=== PATIENT | male | born 1950 | race Caucasian/White ===

== ENCOUNTER → 2018-01-19 15:05 | Outpatient (CLI) | payer MEDICARE, BC, SELFPAY ==
[2018-01-19 15:46] LABS: Hemoglobin A1C% w Est Avg Glu 6.7 % (4.0-6.0)
[2018-01-19 16:11] LABS: Creatinine Urine Random 108.1 mg/dL
[2018-01-19 16:14] LABS: Microalbumi Creatinin Ratio Ur 169.2 ug/mg CR (<30); Microalbumin Urine Random 18.3 mg/dL (0-1.6)
== END ==
PROVIDERS: Family Provider Family Medicine; PCP Family Medicine; Visit Provider Family Medicine
DX: E11.9 Type 2 diabetes mellitus without complications (principal); I10 Essential (primary) hypertension
CPT/HCPCS: 36415; 82043; 82570; 83036

== ENCOUNTER → 2018-07-25 12:48 | Outpatient (CLI) | payer MEDICARE, BC, SELFPAY ==
[2018-07-25 13:33] LABS: Hemoglobin A1C% w Est Avg Glu 6.8 % (4.0-6.0)
[2018-07-25 14:26] LABS: Alanine Aminotransferase 22 IU/L (21-72); Albumin 4.6 g/dL (3.5-5.0); Albumin Globulin Ratio 1.3 (1.0-2.8); Alkaline Phosphatase 102 U/L (38-126); Aspartate Aminotransferase 23 IU/L (17-59); BUN Creatinine Ratio 24.6 (6-22); Bilirubin Total 0.4 mg/dL (0.2-1.3); Blood Urea Nitrogen 32 mg/dL (9-20); Calcium 9.9 mg/dL (8.4-10.2); Carbon Dioxide 30 mmol/L (22-32); Chloride 103 mmol/L (98-107); Cholesterol 143 mg/dL (140-199); Estimated Glomerular Filt Rate 55.1 mL/min (>60); Globulin 3.5 g/dL (1.7-4.1); Glucose 141 mg/dL (80-110); HDL Cholesterol 29 mg/dL (40-60); HEMOLYSIS < 15 (0-50); LDL Cholesterol Calculated 79 mg/dL (<100); Potassium 4.1 mmol/L (3.4-5.1); Sodium 145 mmol/L (137-145); Total Protein 8.1 g/dL (6.3-8.2); Triglycerides 176 mg/dL (35-150)
== END ==
PROVIDERS: Family Provider Family Medicine; PCP Family Medicine; Visit Provider Family Medicine
DX: E11.9 Type 2 diabetes mellitus without complications (principal); I10 Essential (primary) hypertension; Z87.39 Personal history of other diseases of the musculoskeletal system and connective tissue
CPT/HCPCS: 36415; 80053; 80061; 83036

== ENCOUNTER 2020-01-29 19:07 | Emergency (ER) | payer MEDICARE, OTHER, SELFPAY ==
[2020-01-29] VITALS (12 sets, daily range): BP systolic 134–162; BP diastolic 83–99; PULSE 86–114; RESP 15–27; TEMP 36.6; O2SAT 90–98; BMI 31.6
[2020-01-29 19:52] LABS: Bacteria Urine None Seen
[2020-01-29 19:53] LABS: Appearance Urine UA CLEAR; Bilirubin Urine UA NEGATIVE (NEGATIVE); Color Urine UA YELLOW; Glucose Urine UA NEGATIVE (Negative); Ketones Urine UA TRACE (NEGATIVE); Leukocyte Esterase Urine UA NEGATIVE (NEGATIVE); Nitrite Urine UA NEGATIVE (Negative); Occult Blood Urine UA 3+ (Negative); Protein Urine UA 2+ (Negative); Specific Gravity Urine UA >=1.030 (1.000-1.035); Urobilinogen Urine UA 0.2 E.U./dL (0.2)
--- NOTE | 2020-01-29 20:02 | ED_ITS ---
HPI - Abdominal Pain General Chief Complaint: Abdominal Pain Stated Complaint: SHARP PAIN LOWER ABD FEELS LIKE PASSING OUT Time Seen by Provider: 01/29/20 19:36 Source: patient Mode of arrival: Ambulatory Limitations: no limitations History of Present Illness HPI narrative: The patient developed abdominal discomfort earlier today. He has suprapubic discomfort. He has associated nausea & vomiting. He has no back pain. He has no hematuria. He has very little urine output. He has had several episodes of vomiting. He has no associated diarrhea. He has had no hematemesis. He does have a history of UGI bleed. He is having normal BMs, he complains of no melena. He has no testicular pain, he denies prostate disease. He has a remote history of kidney stones. He has no fever or chills with the symptoms. Related Data Home Medications Medication Instructions Recorded Confirmed cholecalciferol (vitamin D3) 2,000 u OR QDAY #0 09/07/17 03/09/18 [Vitamin D3] chondroitin sulfate A [Chondroitin #0 09/07/17 03/09/18 Sulfate] ferrous sulfate [Iron (ferrous #0 09/07/17 03/09/18 sulfate)] glucosamine sulfate [Cidatrine] 1,500 mg OR QDAY #0 09/07/17 03/09/18 omega 6-pbm-xci-fish oil [Fish Oil] #0 09/07/17 03/09/18 Previous Rx's Medication Instructions Recorded amlodipine 10 mg tablet 10 mg PO QDAY #90 tab 08/23/19 atorvastatin 10 mg tablet 10 mg PO DAILY #90 tab 08/23/19 metformin 1,000 mg tablet 1,000 mg PO BID #180 tab 08/23/19 valsartan 160 1 tab PO QDAY #90 tab 08/23/19 mg-hydrochlorothiazide 12.5 mg tablet Allergies Allergy/AdvReac Type Severity Reaction Status Date / Time NSAIDS (Non-Steroidal AdvReac Intermediate Verified 01/29/20 19:29 Anti-Inflamma Review of Systems Review of Systems ROS Unobtainable: All systems reviewed & are unremarkable except as noted in HPI and below Constitutional Constitutional: Denies chills, Denies fever(s), Denies lethargy and Denies weakness ENT Ears, Nose, Mouth, and Throat: Reports as per HPI (No complaints) and Denies dizziness Cardiovascular Cardiovascular: Denies chest pain, Denies irregular heart rhythm, Denies lightheadedness, Denies dyspnea and Denies orthopnea Respiratory Respiratory: Denies cough, Denies dyspnea and Denies wheezing Gastrointestinal Gastrointestinal: Reports abdominal pain (Suprapubic), Denies change in bowel habits, Denies diarrhea, Denies nausea and Denies vomiting Genitourinary Genitourinary: Denies testicular pain, Denies urinary frequency and Denies urinary urgency Genitourinary: Denies urinary frequency and Denies urinary urgency Musculoskeletal Musculoskeletal: Denies back pain Integumentary/Breasts Skin/Breast: Denies pruritus, Denies erythema, Denies rash and Denies wounds Neurologic Neurologic: Denies behavioral changes, Denies confusion, Denies dizziness and Denies weakness Psychiatric Psychiatric: Denies anxiety, Denies behavioral changes and Denies confusion Allergic/Immunologic Allergic/Immunologic: Denies wheezing Patient History Medical History (Updated 01/30/20 @ 03:04 by Elliot Rose MD) Anemia (Resolved 2010) Colon polyps (Resolved 2010) Diabetes mellitus (Chronic 1998) Diverticular disease (Chronic 2010) GERD (gastroesophageal reflux disease) (Chronic 2008) GI bleeding (Resolved 2010) Gout (Resolved 2008) Hypertension (Chronic 1994) Kidney stone on right side (Inactive) Surgical History Anesthesia (Resolved) Status post laparoscopy (Resolved 2004) Family History Father Hypertension Alzheimer's disease Cancer Grandfather Heart disease Grandmother No problems noted. Mother Cancer Grandfather Heart disease Grandmother Diabetes mellitus Social History marital status: unmarried,single Smoking Status: Former smoker alcohol intake: current substance use type: marijuana (monthly for insomnia) Smoking Status: Former smoker Exam Initial Vital Signs Initial Vital Signs: Vital Signs Blood Pressure 161/99 H 01/29/20 19:26 Const General: cooperative and well developed Nutritional Appearance: well nourished HENMT Mouth: oral mucosae normal Eyes General: appearance normal, both eyes and all related structures Conjunctivae: conjunctivae normal Sclera: sclerae normal Neck Neck: trachea midline, supple, No tender and No JVD Chest Chest: normal palpation of entire chest wall Resp Effort & Inspection: normal respiratory effort and able to speak in complete sentences Auscultation: clear to auscultation bilaterally, no rales, no rhonchi and no wheezes Cardio Rate: regular rate Rhythm: regular rhythm Heart Sounds: no click, no gallops, no murmurs and no rubs Pulses: normal peripheral pulses GI Inspection: non-distended Palpation: soft, no hepatosplenomegaly, No pulsatile mass and tender (Suprapubic tenderness without distention, guarding or rebound.) Auscultation: normal bowel sounds Rectal Exam: visual inspection normal, normal sphincter tone and heme negative stool Other: There is prostate hypertrophy, but no palpable masses, and no suggestion of infection. Back/Spine/Pelvis Back: No CVA tenderness Skin General: no rashes or lesions noted Neuro General: patient alert, patient oriented x3, gait normal and no focal motor deficits Speech: speech normal Extrem General: full ROM, no clubbing, cyanosis or edema, no pedal edema and no calf tenderness Psych Appearance: well kempt Mental Status: mental status grossly normal Attitude: cooperative Thought Content: normal and suicidality Judgment: judgment good Course Course Course Narrative: The patient was given IV fluids and a low dose of morphine, [address] revealed evidence of a small kidney stone at the verge of injury to the bladder from the right ureter. Repeat evaluation he is pain free, suggesting the kidney stone has moved into the bladder. Orders Ordered: ED Orders 01/29/20 19:33 EKG-12 Lead Stat 01/29/20 19:48 Urinalysis and Microscopic Stat 01/29/20 20:00 Complete Blood Count AUTO DIFF Stat Comprehensive Metabolic Panel Stat Lipase Stat Partial Thromboplastin Time Stat Prothrombin Time INR Stat 01/29/20 20:44 CT kidney ureter bladder (KUB) Stat Discontinued Medications Hydrocodone Bitart/Acetaminophen (Vicodin 5/325 Prepack) 1 bottle MISC SEEINSTR ONE Stop: 01/29/20 22:49 Last Admin: 01/29/20 23:06 Dose: 1 bottle Documented by: KEVON Morphine Sulfate (Morphine) 2 mg IV NOW ONE Stop: 01/29/20 20:03 Last Admin: 01/29/20 20:10 Dose: 2 mg Documented by: KEVON Ondansetron HCl (Zofran) 4 mg IV NOW ONE Stop: 01/29/20 20:04 Last Admin: 01/29/20 20:10 Dose: 4 mg Documented by: KEVON Ondansetron HCl (Zofran Odt Prepack) 1 bottle MISC SEEINSTR ONE Stop: 01/29/20 22:49 Last Admin: 01/29/20 23:06 Dose: 1 bottle Documented by: KEVON Vital Signs Vital signs: Vital Signs - 8 hr 01/29/20 19:26 01/29/20 19:27 01/29/20 19:29 Temperature 97.9 F Pulse Rate 113 H 114 H Respiratory Rate 16 Blood Pressure 161/99 H 161/99 H Pulse Oximetry 98 97 01/29/20 19:30 01/29/20 20:00 01/29/20 20:02 Temperature Pulse Rate 106 H 100 H 98 H Respiratory Rate 16 21 27 H Blood Pressure 162/99 H 161/89 H Pulse Oximetry 96 95 95 01/29/20 20:12 01/29/20 20:30 01/29/20 21:30 Temperature Pulse Rate 96 H 96 H 101 H Respiratory Rate 15 18 24 Blood Pressure 149/88 H 134/83 Pulse Oximetry 97 90 L 97 01/29/20 22:00 01/29/20 22:30 01/29/20 23:00 Temperature Pulse Rate 99 H 95 H 86 Respiratory Rate 21 15 18 Blood Pressure Pulse Oximetry 98 96 98 MDM - Abdominal Pain Lab Data Attestation: I reviewed the patient's lab results. Result diagrams: 01/29/20 20:00 01/29/20 20:00 Labs: Lab Results 01/29/20 01/29/20 01/29/20 Range/Units 19:48 20:00 20:00 WBC 11.7 H (4.5-11.0) X10^3/uL RBC 4.50 (4.5-5.9) X10^6/uL Hgb 13.3 L (13.5-17.5) g/dL Hct 40.1 L (41-53) % MCV 89.3 (80-100) fL MCH 29.5 (26-34) PG MCHC 33.0 (30-36) % RDW 14.7 (11.6-14.8) % Plt Count 345 (150-400) X10^3/uL Neut % (Auto) 79.7 H (50-75) % Lymph % (Auto) 12.6 L (25-40) % [place] % (Auto) 5.7 (3-14) % Eos % (Auto) 1.3 L (2-4) % Baso % (Auto) 0.7 (0-2) % Neut # (Auto) 9300 H (7229-3142) /uL Lymph # (Auto) 1500 (8820-1669) /uL [place] # (Auto) 700 (0-900) /uL Eos # (Auto) 200 (0-450) /uL Baso # (Auto) 100 (0-100) /uL PT 10.9 (10.1-12.7) SECONDS INR 1.0 (0.9-1.3) APTT 31 (26.4-36.2) SECONDS Sodium (137-145) mmol/L Potassium (3.4-5.1) mmol/L Chloride (98-107) mmol/L Carbon Dioxide (22-32) mmol/L BUN (9-20) mg/dL Creatinine (0.66-1.25) mg/dL Estimated GFR (>60) mL/min BUN/Creatinine Ratio (6-22) Glucose (80-110) mg/dL Calcium (8.4-10.2) mg/dL Total Bilirubin (0.2-1.3) mg/dL AST (17-59) IU/L ALT (<50) IU/L Alkaline Phosphatase (38-126) U/L Total Protein (6.3-8.2) g/dL Albumin (3.5-5.0) g/dL Globulin (1.7-4.1) g/dL Albumin/Globulin Ratio (1.0-2.8) Lipase (23-300) U/L Urine Color Yellow Urine Appearance Clear Urine pH 5.0 (4.5-8.0) Ur Specific [place] >=1.030 H (1.000-1.035) Urine Protein 2+ H (Negative) Urine Glucose (UA) Negative (Negative) g/dL Urine Ketones Trace H (NEGATIVE) Urine Occult Blood 3+ H (Negative) Urine Nitrate Negative (Negative) Urine Bilirubin Negative (NEGATIVE) Urine Urobilinogen 0.2 (0.2) E.U./dL Ur Leukocyte Esterase Negative (NEGATIVE) Urine RBC 5-10/hpf H (0-5/HPF) Urine WBC 0-1/hpf (0-5/HPF) Ur Squamous Epith Cells 0-1 /hpf (0-5/HPF) Amorphous Sediment 1+ Urine Bacteria None seen (None) Urine Mucus 1+ H (Negative) Ur Culture Indicated? Cult not indicated 01/29/20 Range/Units 20:00 WBC (4.5-11.0) X10^3/uL RBC (4.5-5.9) X10^6/uL Hgb (13.5-17.5) g/dL Hct (41-53) % MCV (80-100) fL MCH (26-34) PG MCHC (30-36) % RDW (11.6-14.8) % Plt Count (150-400) X10^3/uL Neut % (Auto) (50-75) % Lymph % (Auto) (25-40) % [place] % (Auto) (3-14) % Eos % (Auto) (2-4) % Baso % (Auto) (0-2) % Neut # (Auto) (4487-4992) /uL Lymph # (Auto) (3099-5059) /uL [place] # (Auto) (0-900) /uL Eos # (Auto) (0-450) /uL Baso # (Auto) (0-100) /uL PT (10.1-12.7) SECONDS INR (0.9-1.3) APTT (26.4-36.2) SECONDS Sodium 141 (137-145) mmol/L Potassium 4.0 (3.4-5.1) mmol/L Chloride 104 (98-107) mmol/L Carbon Dioxide 24 (22-32) mmol/L BUN 32 H (9-20) mg/dL Creatinine 1.41 H (0.66-1.25) mg/dL Estimated GFR 49.8 L (>60) mL/min BUN/Creatinine Ratio 22.7 H (6-22) Glucose 254 H (80-110) mg/dL Calcium 10.0 (8.4-10.2) mg/dL Total Bilirubin 0.3 (0.2-1.3) mg/dL AST 27 (17-59) IU/L ALT 27 (<50) IU/L Alkaline Phosphatase 133 H (38-126) U/L Total Protein 7.8 (6.3-8.2) g/dL Albumin 4.4 (3.5-5.0) g/dL Globulin 3.4 (1.7-4.1) g/dL Albumin/Globulin Ratio 1.3 (1.0-2.8) Lipase 66 (23-300) U/L Urine Color Urine Appearance Urine pH (4.5-8.0) Ur Specific [place] (1.000-1.035) Urine Protein (Negative) Urine Glucose (UA) (Negative) g/dL Urine Ketones (NEGATIVE) Urine Occult Blood (Negative) Urine Nitrate (Negative) Urine Bilirubin (NEGATIVE) Urine Urobilinogen (0.2) E.U./dL Ur Leukocyte Esterase (NEGATIVE) Urine RBC (0-5/HPF) Urine WBC (0-5/HPF) Ur Squamous Epith Cells (0-5/HPF) Amorphous Sediment Urine Bacteria (None) Urine Mucus (Negative) Ur Culture Indicated? Imaging Data CT scan - abdomen/pelvis: Radiologist's Impression: 47 Elliot Rose MD Find Patient Imaging - Elliot Burt 69 M 1950 ACTIVITY DATE EXAM STATUS AUTHOR 01/29/20 20:44 [place] [address] CT Scan Report Signed Patient: Elliot Burt [facility]#: [id number] : 1950cct:[id number] Age/Sex: 69 / MDate of Service: 01/29/20 Loc: ED Accession Number: [id number] Procedure: CT kidney ureter bladder (KUB) Ordering Provider: Elliot Rose MD PROCEDURE: CT KIDNEY URETER BLADDER (KUB) INDICATIONS: Suprapubic pain. Hematuria. TECHNIQUE: Noncontrast 5 mm thick sections acquired from the diaphragms to the symphysis. 5 mm thick coronal and sagittal reformats were then performed. For radiation dose r eduction, the following was used: automated exposure control, adjustment of mA and/or kV according to patient size. COMPARISON: None. FINDINGS: Image quality: Excellent. Lung bases: Lung bases are clear. Heart size is normal. Urinary system: Both kidneys are normal in size but there is a slight amount of edema along the course of the right kidney. No kidney stones. No hydronephrosis or perinephric fat stranding. Both ureters appear non-dilated throughout their expected courses. Bladder wall thickness is normal; there is a 1.5-2 mm calcified bladder stone exactly at the posterior midline. Other solid organs: Liver is normal in size. Gallbladder appears normal. Panc reas is normal in contours. Spleen is normal in size. No adrenal nodules. Peritoneum and bowel: Unenhanced bowel loops demonstrate normal wall thickness and caliber. No free fluid or air. Nodes and vessels: No retroperitoneal or mesenteric adenopathy by size criteria. Aorta and inferior vena cava are normal in caliber. Abdominal wall: No ventral hernias. Pelvis: No free pelvic fluid. No inguinal hernias or adenopathy. Extensive sigmoid diverticulosis without acute diverticulitis. Bones: No suspicious bony lesions. No vertebral body compression fractures. IMPRESSION: There is a single identified 1.5-2 mm calculus within the bladder lumen, in the setting of prior right-sided flank pain and slight edema along the borders of the right kidney. The appearance is most consistent with recent passage of this calculus into the bladder lumen from the right ureter. The stone of this size generally will pass without symptomatology through the urethra. Dictated by: José Lewis M.D. on 01/29/2020 at 21:11 Approved by: José Lewis M.D. on 01/29/2020 at 21:13 ECG Data Attestation: I personally reviewed and interpreted this ECG as follows: (Normal sinus rhythm rate 98 beats per minute. Intermittent axis. Pattern consistent with pulmonary disease. No acute ST T wave changes.) Discharge Plan Departure Patient Disposition: Home Clinical Impression: Kidney stone on right side Discharge Date/Time: 01/29/20 23:15 Instructions: DI for Kidney Stones Activity Restrictions/Additional Instructions: Drink plenty of water, be sure you are well hydrated. [place] every 4-6 hours as needed for pain. Zofran every 4-6 hours as needed for nausea. Return the ER if he develops increasing pain, fever, or worsening of symptoms. Prescriptions: No Action ferrous sulfate [Iron (ferrous sulfate)] 325 MG tablet Qty: 0 RF: 0 cholecalciferol (vitamin D3) [Vitamin D3] 2,000 UNIT capsule 2,000 u OR QDAY Qty: 0 RF: 0 chondroitin sulfate A [Chondroitin Sulfate] 250 MG capsule Qty: 0 RF: 0 omega 0-sby-lxz-fish oil [Fish Oil] 1,000 MG capsule Qty: 0 RF: 0 glucosamine sulfate [Cidatrine] 500 MG tablet 1,500 mg OR QDAY Qty: 0 RF: 0 valsartan-hydrochlorothiazide 160-12.5 mg tablet 1 tab PO QDAY Qty: 90 RF: 2 atorvastatin 10 mg tablet 10 mg PO DAILY Qty: 90 RF: 2 metformin 1,000 mg tablet 1,000 mg PO BID Qty: 180 RF: 2 amlodipine 10 mg tablet 10 mg PO QDAY Qty: 90 RF: 2 Referrals: Fatuma Olivarez DO [Primary Care Provider] -
[2020-01-29] MEDS: MORPHINE 4 MG/ML INJ 2 MG IV (20:10)
[2020-01-29] MEDS: ONDANSETRON 4 MG/2 ML INJ IV (20:10)
[2020-01-29 20:11] LABS: RBC Urine 5-10/HPF (0-5/HPF); Squamous Epithelial Cell Urine 0-1 /HPF (0-5/HPF); WBC Urine 0-1/HPF (0-5/HPF)
[2020-01-29 20:12] LABS: Amorphous Sediment Urine 1+; Culture Indicated Urine Cult Not Indicated; Mucus Urine 1+ (Negative)
[2020-01-29 20:22] LABS: Prothrombin Time 10.9 SECONDS (10.1-12.7)
[2020-01-29 20:23] LABS: Alanine Aminotransferase 27 IU/L (<50); Albumin 4.4 g/dL (3.5-5.0); Albumin Globulin Ratio 1.3 (1.0-2.8); Alkaline Phosphatase 133 U/L (38-126); Aspartate Aminotransferase 27 IU/L (17-59); BUN Creatinine Ratio 22.7 (6-22); Bilirubin Total 0.3 mg/dL (0.2-1.3); Blood Urea Nitrogen 32 mg/dL (9-20); Carbon Dioxide 24 mmol/L (22-32); Chloride 104 mmol/L (98-107); Estimated Glomerular Filt Rate 49.8 mL/min (>60); Globulin 3.4 g/dL (1.7-4.1); Glucose 254 mg/dL (80-110); HEMOLYSIS < 15 (0-50); Lipase 66 U/L (23-300); Sodium 141 mmol/L (137-145); Total Protein 7.8 g/dL (6.3-8.2)
[2020-01-29 20:25] LABS: PTT Partial Thromboplastin Tim 31 SECONDS (26.4-36.2)
[2020-01-29 20:29] LABS: Add Manual Diff / Slide Review NO; Basophils Absolute Auto 100 /uL (0-100); Basophils Percent Auto 0.7 % (0-2); Eosinophils Absolute Auto 200 /uL (0-450); Eosinophils Percent Auto 1.3 % (2-4); Hematocrit 40.1 % (41-53); Hemoglobin 13.3 g/dL (13.5-17.5); Lymphocytes Absolute Auto 1500 /uL (1100-4500); Lymphocytes Percent Auto 12.6 % (25-40); Mean Corpuscular Hemoglobin 29.5 PG (26-34); Mean Corpuscular Volume 89.3 fL (80-100); Monocytes Absolute Auto 700 /uL (0-900); Monocytes Percent Auto 5.7 % (3-14); Neutrophils Absolute Auto 9300 /uL (1500-7000); Neutrophils Percent Auto 79.7 % (50-75); Platelet Count 345 X10^3/uL (150-400); Red Cell Distribution Width 14.7 % (11.6-14.8); White Blood Cell Count 11.7 X10^3/uL (4.5-11.0)
--- NOTE | 2020-01-29 20:44 | DI.CT.S_ITS ---
PROCEDURE: CT KIDNEY URETER BLADDER (KUB) INDICATIONS: Suprapubic pain. Hematuria. TECHNIQUE: Noncontrast 5 mm thick sections acquired from the diaphragms to the symphysis. 5 mm thick coronal and sagittal reformats were then performed. For radiation dose reduction, the following was used: automated exposure control, adjustment of mA and/or kV according to patient size. COMPARISON: None. FINDINGS: Image quality: Excellent. Lung bases: Lung bases are clear. Heart size is normal. Urinary system: Both kidneys are normal in size but there is a slight amount of edema along the course of the right kidney. No kidney stones. No hydronephrosis or perinephric fat stranding. Both ureters appear non-dilated throughout their expected courses. Bladder wall thickness is normal; there is a 1.5-2 mm calcified bladder stone exactly at the posterior midline. Other solid organs: Liver is normal in size. Gallbladder appears normal. Pancreas is normal in contours. Spleen is normal in size. No adrenal nodules. Peritoneum and bowel: Unenhanced bowel loops demonstrate normal wall thickness and caliber. No free fluid or air. Nodes and vessels: No retroperitoneal or mesenteric adenopathy by size criteria. Aorta and inferior vena cava are normal in caliber. Abdominal wall: No ventral hernias. Pelvis: No free pelvic fluid. No inguinal hernias or adenopathy. Extensive sigmoid diverticulosis without acute diverticulitis. Bones: No suspicious bony lesions. No vertebral body compression fractures. IMPRESSION: There is a single identified 1.5-2 mm calculus within the bladder lumen, in the setting of prior right-sided flank pain and slight edema along the borders of the right kidney. The appearance is most consistent with recent passage of this calculus into the bladder lumen from the right ureter. The stone of this size generally will pass without symptomatology through the urethra. Dictated by: José Lewis M.D. on 01/29/2020 at 21:11 Approved by: José Lewis M.D. on 01/29/2020 at 21:13
[2020-01-29] MEDS: HYDROCODONE/ACET 5/325 PREPACK 1 BOTTLE MISC (23:06)
[2020-01-29] MEDS: ONDANSETRON 4 MG ODT PREPACK 1 BOTTLE MISC (23:06)
== END 2020-01-29 23:15 | disposition home or self-care (01) ==
PROVIDERS: Emergency Provider Emergency Medicine; Family Provider Family Medicine; PCP Family Medicine
DX: N20.0 Calculus of kidney (principal); R31.9 Hematuria, unspecified; R11.2 Nausea with vomiting, unspecified
CPT/HCPCS: 36415; 74176; 80053; 81001; 83690; 85025; 85610; 85730; 93005; 93010; 96374; 96375; 99284; J2270; J2405

== ENCOUNTER → 2020-05-22 11:30 | Outpatient (CLI) | payer MEDICARE, OTHER, SELFPAY ==
[2020-05-22 12:38] LABS: Hemoglobin A1C% w Est Avg Glu > 14.0 % (4.0-6.0)
[2020-05-22 13:09] LABS: Cholesterol 182 mg/dL (140-199); HDL Cholesterol 18 mg/dL (40-60); Triglycerides 502 mg/dL (35-150)
[2020-05-22 16:16] LABS: Creatinine Urine Random 77.6 mg/dL
[2020-05-22 16:20] LABS: Microalbumi Creatinin Ratio Ur 168.8 ug/mg CR (<30); Microalbumin Urine Random 13.1 mg/dL (0-1.6)
== END ==
PROVIDERS: Family Provider Family Medicine; PCP Family Medicine; Referring Provider Family Medicine; Visit Provider Family Medicine
DX: E11.69 Type 2 diabetes mellitus with other specified complication (principal); E11.9 Type 2 diabetes mellitus without complications; E66.9 Obesity, unspecified; E78.5 Hyperlipidemia, unspecified; I10 Essential (primary) hypertension
CPT/HCPCS: 36415; 80061; 82043; 82570; 83036

== ENCOUNTER → 2020-05-23 08:44 | Outpatient (CLI) | payer MEDICARE, OTHER, SELFPAY ==
[2020-05-23 09:09] LABS: Add Manual Diff / Slide Review NO; Basophils Absolute Auto 100 /uL (0-100); Basophils Percent Auto 0.7 % (0-2); Eosinophils Absolute Auto 200 /uL (0-450); Hematocrit 44.2 % (41-53); Hemoglobin 14.3 g/dL (13.5-17.5); Lymphocytes Absolute Auto 2300 /uL (1100-4500); Lymphocytes Percent Auto 28.8 % (25-40); Mean Corpuscular HGB Conc 32.3 % (30-36); Mean Corpuscular Hemoglobin 29.6 PG (26-34); Mean Corpuscular Volume 91.5 fL (80-100); Monocytes Absolute Auto 500 /uL (0-900); Monocytes Percent Auto 6.4 % (3-14); Neutrophils Absolute Auto 5000 /uL (1500-7000); Neutrophils Percent Auto 62.1 % (50-75); Platelet Count 299 X10^3/uL (150-400); Red Blood Cell Count 4.83 X10^6/uL (4.5-5.9); Red Cell Distribution Width 14.3 % (11.6-14.8)
[2020-05-23 09:23] LABS: Alanine Aminotransferase 15 IU/L (<50); Albumin 4.1 g/dL (3.5-5.0); Albumin Globulin Ratio 1.4 (1.0-2.8); Alkaline Phosphatase 148 U/L (38-126); Aspartate Aminotransferase 20 IU/L (17-59); BUN Creatinine Ratio 21.3 (6-22); Bilirubin Total 0.6 mg/dL (0.2-1.3); Blood Urea Nitrogen 30 mg/dL (9-20); Calcium 9.7 mg/dL (8.4-10.2); Carbon Dioxide 25 mmol/L (22-32); Chloride 98 mmol/L (98-107); Estimated Glomerular Filt Rate 49.8 mL/min (>60); Glucose 370 mg/dL (80-110); HEMOLYSIS < 15 (0-50); Sodium 136 mmol/L (137-145); Total Protein 7.1 g/dL (6.3-8.2)
== END ==
PROVIDERS: Family Provider Family Medicine; PCP Family Medicine; Visit Provider Family Medicine
DX: E11.9 Type 2 diabetes mellitus without complications (principal)
CPT/HCPCS: 80053; 85025

== ENCOUNTER → 2020-06-01 08:24 | Outpatient (CLI) | payer MEDICARE, OTHER, SELFPAY ==
[2020-06-03 20:06] LABS: COVID19 Sendout Not Detected (Not Detect)
== END ==
PROVIDERS: Family Provider Family Medicine; PCP Family Medicine; Visit Provider Physician Assistant
DX: Z11.59 Encounter for screening for other viral diseases (principal)
CPT/HCPCS: 87635

== ENCOUNTER 2020-06-04 07:59 | Day surgery (SDC) | payer MEDICARE, OTHER, SELFPAY ==
[2020-06-04] MEDS: PROPARACAINE 0.5% OPHTH SOL 2 DROPS EYE-OP (08:43)
[2020-06-04] MEDS: CATARACT EYE COMPOUND (10 DROPS/SYRINGE) 3 DROPS EYE-OP (08:48)
[2020-06-04 08:49] VITALS: BMI 31.0
[2020-06-04 08:55] VITALS: BP 135/91; PULSE 113; RESP 20; TEMP 36.2; O2SAT 97
--- NOTE | 2020-06-04 09:41 | PM.PREOP ---
Pre-operative Note Interval Note History & Physical reviewed/Exam performed by Physician: Yes Changes to H&P: No
--- NOTE | 2020-06-04 09:41 | P.OP_ITS ---
Operative Date/Time/Diagnoses Pre-op diagnosis: Nuclear cataract right eye Procedure & Clinicians Procedure: Cataract Surgery Same procedure as scheduled: Yes Surgeon: Ezra Watson Anesthesia Type: MAC +/- and Sedation Operative Notes Procedure in detail: Patient brought to the operating suite. Tetracaine drops placed in the right eye. Marking instrument was used to anastasiia vertical and horizontal meridians. Patient was prepped and draped in sterile manner. Wire lid speculum was placed in the eye. Marking instrument was used to anastasiia 45 degree meridian. Betadine drops were placed on the eye. This was irrigated. Lidocaine jelly was placed on the eye. A paracentesis port was created with a side-port blade. 0.1 mL 1% preservative free lidocaine was injected into the anterior chamber. The anterior chamber was deepened with viscoelastic. 2.6 mm keratome was used to create a temporal clear corneal incision. Cystotome and Utrata forceps were used to create continuous tear capsulorrhexis. Balanced salt solution was used to hydro dissect the nucleus. The phacoemulsification handpiece was inserted and the nucleus was removed using the stop and chop technique. The irrigation aspiration handpiece was inserted and the remaining cortex was removed. Anterior chamber was deepened with viscoelastic. An Yeager [id number] intraocular lens with a power of 14.0 was injected into the capsular bag. Irrigation aspiration handpiece was inserted and the remaining viscoelastic was removed. The lens was rotated to the 45 degree meridian. Incision was hydrated with balanced salt solution and found to be leak free with pressure with Weck- Mercedes sponges. 0.1 mL Vigamox injected anterior chamber. 0.3 mL Kenalog 10 mg was injected subconjunctivally. Lid speculum was removed. The patient left the operating room in excellent condition. Complications: none Post-operative Condition: stable Disposition: same day surgery
[2020-06-04] MEDS: MOXIFLOXACIN INJ 5 MG/ML VIAL EYE-OP (09:58)
[2020-06-04] MEDS: CHONDROIDTIN/SOD HYALURONATE 1.05 ML SYRINGE INTRAOCULA (09:58)
[2020-06-04] MEDS: LIDOCAINE JELLY 2% 5 ML 1 APPLIC TOP (09:58)
[2020-06-04] MEDS: PHENYLEPHRINE/LIDOCAINE VIAL (OR) 0.2 ML EYE-OP (09:58)
[2020-06-04] MEDS: TETRACAINE 0.5% OPHTH DROPS 4 ML 2 DROPS EYE-OP (09:59)
[2020-06-04] MEDS: TRIAMCINOLONE 50 MG/5 ML VIAL INJ (09:59)
[2020-06-04] MEDS: BALANCED SALT IRRIG SOLN NO.2 500 ML, EPINEPHrine 1 MG IRR (10:02)
[2020-06-04 10:20] VITALS: BP 109/77; PULSE 98; RESP 16; TEMP 36.6; O2SAT 94
== END 2020-06-04 10:33 | disposition home or self-care (01) ==
PROVIDERS: Family Provider Family Medicine; PCP Family Medicine; Referring Provider Family Medicine; Visit Provider Ophthalmology
PROC: (CPT 66984; principal; 2020-06-04 09:45)
DX: H25.11 Age-related nuclear cataract, right eye (principal); E11.9 Type 2 diabetes mellitus without complications; I10 Essential (primary) hypertension; Z79.84 Long term (current) use of oral hypoglycemic drugs
CPT/HCPCS: 66984; J0171; J2250; J3010; J3301; V2787

== ENCOUNTER → 2020-06-15 14:29 | Outpatient (CLI) | payer MEDICARE, OTHER, SELFPAY ==
[2020-06-15 15:44] LABS: COVID19 -Nasal RAPID Negative (Negative)
== END ==
PROVIDERS: Family Provider Family Medicine; PCP Family Medicine; Visit Provider Physician Assistant
DX: Z11.59 Encounter for screening for other viral diseases (principal)
CPT/HCPCS: 87635

== ENCOUNTER 2020-06-18 06:55 | Day surgery (SDC) | payer MEDICARE, OTHER, SELFPAY ==
[2020-06-18] MEDS: PROPARACAINE 0.5% OPHTH SOL 2 DROPS EYE-OP (07:12)
[2020-06-18] MEDS: CATARACT EYE COMPOUND (10 DROPS/SYRINGE) 3 DROPS EYE-OP (07:13)
[2020-06-18 07:14] VITALS: BP 118/83; PULSE 97; RESP 16; TEMP 37.2; O2SAT 97; BMI 30.9
--- NOTE | 2020-06-18 08:05 | P.OP_ITS ---
Operative Date/Time/Diagnoses Pre-op diagnosis: Nuclear Cataract Left eye Post-op diagnosis: same Procedure & Clinicians Same procedure as scheduled: Yes Surgeon: Ezra Watson Anesthesia Type: MAC +/- and Sedation Operative Notes Procedure in detail: Patient brought to the operating suite. Tetracaine drops placed in the left eye. Marking instrument was used to anastasiia the vertical and horizontal meridians. Patient was prepped and draped in sterile manner. Wire lid speculum was placed in the eye. Marking instrument used to anastasiia the 160 degree meridians. Betadine drops were placed on the eye. This was irrigated. Lidocaine jelly was placed on the eye. A paracentesis port was created with a side-port blade. 0.1 mL 1% preservative free lidocaine was injected into the anterior chamber. The anterior chamber was deepened with viscoelastic. 2.6 mm keratome was used to create a temporal clear corneal incision. Cystotome and Utrata forceps were used to create continuous tear capsulorrhexis. Balanced salt solution was used to hydro dissect the nucleus. The phacoemulsification handpiece was inserted and the nucleus was removed using the stop and chop techn ique. The irrigation aspiration handpiece was inserted and the remaining cortex was removed. Anterior chamber was deepened with viscoelastic. An Yeager [id number] intraocular lens with a power of 13.5 was injected into the capsular bag. Irrigation aspiration handpiece was inserted and the remaining viscoelastic was removed. The lens was rotated to the 160 degree meridian. Incision was hydrated with balanced salt solution and found to be leak free with pressure with Weck-Mercedes sponges. 0.1 mL Vigamox injected anterior chamber. 0.3 mL Kenalog 10 mg was injected subconjunctivally. Lid speculum was removed. The patient left the operating room in excellent condition. Complications: none Post-operative Condition: stable Disposition: same day surgery
--- NOTE | 2020-06-18 08:05 | PM.PREOP ---
Pre-operative Note Interval Note History & Physical reviewed/Exam performed by Physician: Yes Changes to H&P: No
[2020-06-18] MEDS: MOXIFLOXACIN INJ 5 MG/ML VIAL EYE-OP (08:20)
[2020-06-18] MEDS: CHONDROIDTIN/SOD HYALURONATE 1.05 ML SYRINGE INTRAOCULA (08:20)
[2020-06-18] MEDS: TRIAMCINOLONE 50 MG/5 ML VIAL INJ (08:20)
[2020-06-18] MEDS: PHENYLEPHRINE/LIDOCAINE VIAL (OR) 0.2 ML EYE-OP (08:20)
[2020-06-18] MEDS: TETRACAINE 0.5% OPHTH DROPS 4 ML 2 DROPS EYE-OP (08:21)
[2020-06-18] MEDS: BALANCED SALT IRRIG SOLN NO.2 500 ML, EPINEPHrine 1 MG IRR (08:21)
[2020-06-18] MEDS: LIDOCAINE JELLY 2% 5 ML 1 APPLIC TOP (08:21)
[2020-06-18 08:34] VITALS: BP 118/88; PULSE 97; RESP 16; TEMP 36.4; O2SAT 96
== END 2020-06-18 08:55 | disposition home or self-care (01) ==
PROVIDERS: Family Provider Family Medicine; PCP Family Medicine; Referring Provider Ophthalmology; Visit Provider Ophthalmology
PROC: (CPT 66984; principal; 2020-06-18 08:15)
DX: H25.12 Age-related nuclear cataract, left eye (principal); E11.9 Type 2 diabetes mellitus without complications; I10 Essential (primary) hypertension; Z79.84 Long term (current) use of oral hypoglycemic drugs
CPT/HCPCS: 66984; J0171; J2250; J3010; J3301; V2787

== ENCOUNTER → 2020-06-24 12:39 | Outpatient (CLI) | payer MEDICARE, OTHER, SELFPAY ==
--- NOTE | 2020-06-24 12:44 | DI.RAD.S_ITS ---
PROCEDURE: XR CHEST 2V INDICATIONS: shortness of breath TECHNIQUE: 2 views of the chest were acquired. COMPARISON: [facility], , ABDOMEN 2 VIEW, 09/20/2017, 11:58. FINDINGS: Surgical changes and devices: None. Lungs and pleura: Elevation of the right hemidiaphragm. Right basilar airspace opacity. Lungs otherwise are clear.. No pleural effusions or pneumothorax. Mediastinum: Mediastinal contours are normal. Heart size is normal. Bones and chest wall: No suspicious bony abnormalities. Soft tissues appear unremarkable. IMPRESSION: 1. Elevation the right hemidiaphragm and right basilar airspace opacity consistent with atelectasis versus pneumonia or underlying neoplasm. Continued radiographic surveillance to resolution is recommended. Dictated by: Solomon Almonte [facility] Interpreted: George Lantigua MD on 06/24/2020 at 13:51 Approved by: George Lantigua M.D. on 06/24/2020 at 17:31
[2020-06-24 13:33] LABS: Hemoglobin A1C% w Est Avg Glu 12.6 % (4.0-6.0)
== END ==
PROVIDERS: Family Provider Family Medicine; PCP Family Medicine; Referring Provider Family Medicine; Visit Provider Family Medicine
DX: R06.02 Shortness of breath (principal); E11.69 Type 2 diabetes mellitus with other specified complication; E78.5 Hyperlipidemia, unspecified; I10 Essential (primary) hypertension
CPT/HCPCS: 36415; 71046; 83036

== ENCOUNTER → 2020-07-01 12:50 | Outpatient (CLI) | payer MEDICARE, OTHER, SELFPAY ==
--- NOTE | 2020-07-01 12:52 | DI.CT.S_ITS ---
PROCEDURE: CT CHEST WO CON INDICATIONS: SOB, fatigue, abnormal chest x-ray TECHNIQUE: Noncontrast 5 mm thick sections acquired from the pulmonary apices to the posterior costophrenic angles. 1 mm lung window, 5 mm thick coronal and sagittal and 7 mm axial MIP reformats were then acquired. For radiation dose reduction, the following was used: automated exposure control, adjustment of mA and/or kV according to patient size. COMPARISON: Outside Facility, , CT ABDOMEN/PELVIS WITHOUT CONTRAST, 07/16/2014, 15:03. [facility], CT, ABDOMEN/PELVIS WITH CONTRAST, 10/06/2017, 13:47. Outside Facility, , CT ABDOMEN/PELVIS W/WO CONTRAST, 12/11/2014, 15:03. FINDINGS: Image quality: Excellent. Lungs and pleura: No acute air space opacities. No pleural effusions or pneumothorax. Eventration of right hemidiaphragm with volume loss in the right hemithorax. Chronic benign-appearing pleural based nodular density extreme posterior medial left lung base, most recently measuring 1.9 x 1.8 cm and currently measuring 2.0 x 2.0 cm. It is adjacent to multiple pleural based calcifications. Bibasilar bronchial wall thickening. Mediastinum: Heart size is normal. No pericardial effusion. Coronary artery calcifications. Incidental note made of bovine arch anatomy. No mediastinal adenopathy by size criteria. Thoracic aorta and central pulmonary arteries are normal in size. Esophagus is normal in caliber. No hiatal hernia. Bones and chest wall: No suspicious bony lesions. No vertebral body compression fractures. No axillary or supraclavicular adenopathy by size criteria. Thyroid gland is unremarkable as imaged. Abdomen: Visualized upper abdominal solid organs and bowel loops appear normal in the absence of contrast. Remote gastric bypass procedure. IMPRESSION: 1. Eventration of right hemidiaphragm. There is resulting volume loss in the right lung base. 2. Benign-appearing, very slowly growing nodular pleural density, left lower medial hemithorax. 3. Bibasilar bronchial wall thickening. Dictated by: Velasquez Rain M.D. on 07/01/2020 at 13:47 Approved by: Velasquez Rain M.D. on 07/01/2020 at 14:07
== END ==
PROVIDERS: Family Provider Family Medicine; PCP Family Medicine; Referring Provider Family Medicine; Visit Provider Family Medicine
DX: R93.89 Abnormal findings on diagnostic imaging of other specified body structures (principal); R06.02 Shortness of breath; R53.83 Other fatigue
CPT/HCPCS: 71250

== ENCOUNTER → 2020-10-14 17:18 | Outpatient (CLI) | payer MEDICARE, OTHER, SELFPAY ==
--- NOTE | 2020-10-14 17:20 | DI.MRI.S_ITS ---
PROCEDURE: MR SHOULDER LT WO CON INDICATIONS: Pain in left shoulder TECHNIQUE: Noncontrast oblique coronal T2 fast spin echo with fat saturation, oblique sagittal T1 spin echo and T2 fast spin echo with fat saturation, axial T1 spin echo and T2 fast spin echo with fat saturation through the shoulder. COMPARISON: [facility] [place], CR, XR SHOULDER 2+ VIEWS LEFT, 10/07/2020, 9:13. FINDINGS: Image quality: Excellent. Rotator cuff: Mild T2 signal elevation throughout the supraspinatus and infraspinatus tendons at the humeral insertion sites, indicating tendinopathy. There is a small focus of fluid signal intensity within the upper subscapularis tendon at the humeral insertion site extending to the musculotendinous junction, indicating low-grade intrasubstance tearing. There is low-grade bursal surface tearing of the anterior, mid, and posterior supraspinatus tendon at the musculotendinous junction extending to the muscle belly. There is moderate grade transversely oriented intrasubstance tearing of the anterior supraspinatus tendon at the humeral insertion site. There is low-grade partial-thickness articular surface tearing of the anterior, mid, and posterior infraspinatus tendon at the humeral insertion site. There is moderate T2 signal elevation within the infraspinatus muscle extending to the musculotendinous junction of the infraspinatus, indicating moderate grade tearing. Teres minor tendon is intact. No full-thickness rotator cuff tear. Supraspinatus atrophy is present. Bones and bursae: No bone marrow contusions or fractures. No acromioclavicular joint degeneration. Widening of the acromioclavicular interval to 12 mm is present. The acromion demonstrates conventional anatomy, without an os acromiale. No pathologic subacromial-subdeltoid or subcoracoid bursal fluid is present. Capsule and soft tissues: There is diffuse degenerative glenoid labral tearing. The long head of the biceps tendon demonstrates normal location and morphology. The rotator interval appears normal, without fibrosis. The coracohumeral ligament is normal in thickness. IMPRESSION: 1. Acromioclavicular separation. 2. Supraspinatus and infraspinatus tendinopathy. New line 3. Superimposed partial-thickness tears of the supraspinatus and infraspinatus tendons and musculotendinous junctions, as well as the supraspinatus and infraspinatus muscles. There is associated supraspinatus atrophy. 3. Acromioclavicular joint osteoarthritis. 4. Diffuse glenoid labral tearing. 5. Low-grade partial-thickness subscapularis tendon tearing. Dictated by: Darci Medel M.D. on 10/15/2020 at 9:23 Approved by: Darci Medel M.D. on 10/15/2020 at 9:27
== END ==
PROVIDERS: Family Provider Family Medicine; PCP Internal Medicine; Referring Provider Orthopaedic Surgery; Visit Provider Orthopaedic Surgery
DX: M25.512 Pain in left shoulder (principal); S43.102A Unspecified dislocation of left acromioclavicular joint, initial encounter; M19.012 Primary osteoarthritis, left shoulder; M75.112 Incomplete rotator cuff tear or rupture of left shoulder, not specified as traumatic; S43.492A Other sprain of left shoulder joint, initial encounter
CPT/HCPCS: 73221

== ENCOUNTER → 2020-10-15 17:34 | Outpatient (CLI) | payer MEDICARE, OTHER, SELFPAY ==
[2020-10-15 18:20] LABS: Hemoglobin A1C% w Est Avg Glu 7.8 % (4.0-6.0)
[2020-10-15 18:21] LABS: Alanine Aminotransferase 15 IU/L (<50); Albumin 4.4 g/dL (3.5-5.0); Albumin Globulin Ratio 1.3 (1.0-2.8); Alkaline Phosphatase 113 U/L (38-126); Aspartate Aminotransferase 19 IU/L (17-59); BUN Creatinine Ratio 21.6 (6-22); Bilirubin Total 0.4 mg/dL (0.2-1.3); Blood Urea Nitrogen 25 mg/dL (9-20); Calcium 9.6 mg/dL (8.4-10.2); Carbon Dioxide 32 mmol/L (22-32); Chloride 104 mmol/L (98-107); Cholesterol 119 mg/dL (140-199); Estimated Glomerular Filt Rate > 60.0 mL/min (>60); Globulin 3.3 g/dL (1.7-4.1); Glucose 128 mg/dL (80-110); HDL Cholesterol 25 mg/dL (40-60); HEMOLYSIS < 15 (0-50); LDL Cholesterol Calculated 51 mg/dL (<100); Potassium 3.8 mmol/L (3.4-5.1); Sodium 144 mmol/L (137-145); Total Protein 7.7 g/dL (6.3-8.2); Triglycerides 213 mg/dL (35-150)
== END ==
PROVIDERS: Family Provider Family Medicine; PCP Internal Medicine; Referring Provider Internal Medicine; Visit Provider Internal Medicine
DX: E11.65 Type 2 diabetes mellitus with hyperglycemia (principal); I10 Essential (primary) hypertension
CPT/HCPCS: 36415; 80053; 80061; 83036

== ENCOUNTER 2020-10-18 12:50 | Emergency (ER) | payer MEDICARE, OTHER, SELFPAY ==
[2020-10-18 12:55] VITALS: BP 202/128; PULSE 128; RESP 24; TEMP 36.2; O2SAT 93; BMI 31.8
--- NOTE | 2020-10-18 12:59 | DI.RAD.S_ITS ---
PROCEDURE: XR CHEST 1V INDICATIONS: suspected sepsis TECHNIQUE: One view of the chest was acquired. COMPARISON: [facility], CR, XR CHEST 2V, 06/24/2020, 14:14. [facility], CT, CT CHEST WO CON, 07/01/2020, 13:19. FINDINGS: Surgical changes and devices: None. Lungs and pleura: Low lung volumes are noted. This causes a crowded appearance to the lung markings and limits evaluation. Mild, streaky opacities are seen at the lung bases. No pneumothorax or large pleural effusion can be seen. Mediastinum: The cardiac contours are within normal limits. The aorta demonstrates calcification and tortuosity. Bones and chest wall: Age-appropriate bony degenerative changes are seen. No suspicious bony lesions. Overlying soft tissues appear unremarkable. IMPRESSION: Presumed atelectasis is seen at the lung bases. Differential diagnosis includes minimal/early infiltrate, yet this is considered to be less likely. If clinically appropriate, a short-term followup chest series (with PA and lateral views) performed in deep inspiration versus is a dedicated chest CT would be suggested for further evaluation. Dictated by: Steve Dixon M.D. on 10/18/2020 at 12:38 Approved by: Steve Dixon M.D. on 10/18/2020 at 12:39
[2020-10-18 13:44] LABS: Add Manual Diff / Slide Review NO; Basophils Absolute Auto 100 /uL (0-100); Basophils Percent Auto 0.4 % (0-2); Eosinophils Absolute Auto 0 /uL (0-450); Hematocrit 41.9 % (41-53); Hemoglobin 13.7 g/dL (13.5-17.5); Lymphocytes Absolute Auto 1100 /uL (1100-4500); Mean Corpuscular HGB Conc 32.8 % (30-36); Mean Corpuscular Hemoglobin 28.8 PG (26-34); Mean Corpuscular Volume 87.9 fL (80-100); Monocytes Absolute Auto 1000 /uL (0-900); Monocytes Percent Auto 6.2 % (3-14); Neutrophils Absolute Auto 13500 /uL (1500-7000); Neutrophils Percent Auto 86.4 % (50-75); Platelet Count 305 X10^3/uL (150-400); Red Blood Cell Count 4.77 X10^6/uL (4.5-5.9); Red Cell Distribution Width 15.3 % (11.6-14.8); White Blood Cell Count 15.6 X10^3/uL (4.5-11.0)
[2020-10-18 13:54] LABS: INR 1.1 (0.9-1.3); Prothrombin Time 12.2 SECONDS (10.1-12.7)
[2020-10-18 13:57] LABS: PTT Partial Thromboplastin Tim 36 SECONDS (26.4-36.2)
[2020-10-18 13:59] LABS: Lactate (Lactic Acid) 1.7 mmol/L (0.7-2.1)
[2020-10-18 14:00] LABS: Alanine Aminotransferase 16 IU/L (<50); Albumin 4.6 g/dL (3.5-5.0); Albumin Globulin Ratio 1.4 (1.0-2.8); Alkaline Phosphatase 132 U/L (38-126); Aspartate Aminotransferase 20 IU/L (17-59); BUN Creatinine Ratio 21.1 (6-22); Bilirubin Total 0.5 mg/dL (0.2-1.3); Blood Urea Nitrogen 28 mg/dL (9-20); Calcium 9.9 mg/dL (8.4-10.2); Carbon Dioxide 29 mmol/L (22-32); Chloride 99 mmol/L (98-107); Estimated Glomerular Filt Rate 53.2 mL/min (>60); Globulin 3.4 g/dL (1.7-4.1); Glucose 269 mg/dL (80-110); HEMOLYSIS < 15 (0-50); Lipase 30 U/L (23-300); Potassium 4.1 mmol/L (3.4-5.1); Sodium 139 mmol/L (137-145)
[2020-10-18] MEDS: ONDANSETRON 4 MG/2 ML INJ IV ×2 (14:04→16:19)
[2020-10-18] MEDS: SODIUM CHLORIDE 0.9% 1,000 ML 1000 ML IV (14:04)
[2020-10-18 14:10] VITALS: BP 176/119; PULSE 120; RESP 14; O2SAT 95
[2020-10-18 14:15] LABS: Procalcitonin 0.08 ng/mL (<0.5)
[2020-10-18 15:08] LABS: Bacteria Urine None Seen
[2020-10-18 15:09] LABS: Appearance Urine UA CLEAR; Bilirubin Urine UA NEGATIVE (NEGATIVE); Color Urine UA YELLOW; Glucose Urine UA 1+ g/dL (Negative); Ketones Urine UA TRACE (NEGATIVE); Leukocyte Esterase Urine UA NEGATIVE (NEGATIVE); Nitrite Urine UA NEGATIVE (Negative); Occult Blood Urine UA 1+ (Negative); Protein Urine UA 2+ (Negative); Specific Gravity Urine UA 1.025 (1.000-1.035); Urobilinogen Urine UA 0.2 E.U./dL (0.2)
[2020-10-18 15:20] LABS: Amorphous Sediment Urine 1+; Culture Indicated Urine Cult Not Indicated; RBC Urine 1-5/HPF (0-5/HPF); Squamous Epithelial Cell Urine 0-1 /HPF (0-5/HPF); WBC Urine 0-1/HPF (0-5/HPF)
--- NOTE | 2020-10-18 15:25 | ED_ITS ---
HPI - Abdominal Pain General Chief Complaint: Abdominal Pain Stated Complaint: thinks intestinal blockage Time Seen by Provider: 10/18/20 15:24 Source: patient Mode of arrival: Ambulatory Limitations: no limitations History of Present Illness HPI narrative: This is a 70-year-old male comes emergency department with complaint of abdominal pain which he describes as suprapubic. Patient states that it started overnight. He had nausea and vomiting overnight, he has not had any additional today but has not tried to ingest any food or drink. He has not had a bowel movement for 24 hours. He states he has not been passing flatus recently. His last bowel movement was a mix of soft and hard. Patient has felt feverish and chilled at but denies any objective fevers. He states he did not check with a thermometer. He does state he has had some urinary frequency he has chronic stress incontinence and cannot delay his visit to the bathroom regularly. He like he is only urinating but a half cup when he does urinate and is he has had increasing fluids he has had more discomfort in his lower abdomen. He has a history of type 2 diabetes and hypertension. His prior surgical history and screws a gastric sleeve 12 years prior. He states NSAIDs give him GI bleeds. No tobacco, alcoholic drinks 2-3 times weekly. No illicit. PCP is Dr. Owen. Related Data Home Medications Medication Instructions Recorded Confirmed Chondroitin Sulfate 1 mg PO DAILY #0 09/07/17 09/24/20 cholecalciferol (vitamin D3) 2,000 u PO QDAY #0 09/07/17 09/24/20 [Vitamin D3] ferrous sulfate [Iron (ferrous 1 mg PO DAILY #0 09/07/17 09/24/20 sulfate)] glucosamine sulfate [Cidatrine] 1,500 mg PO QDAY #0 09/07/17 09/24/20 omega 4-pao-god-fish oil [Fish Oil] 1 cap PO BID #0 09/07/17 09/24/20 Previous Rx's Medication Instructions Recorded atorvastatin 40 mg tablet 40 mg PO DAILY #90 tab 05/23/20 blood-glucose meter #1 each 05/23/20 lancets #50 each 05/23/20 amlodipine 10 mg tablet 10 mg PO QDAY #90 tab 07/04/20 metformin 1,000 mg tablet 1,000 mg PO BID #180 tab 08/19/20 valsartan 160 1 tab PO DAILY #90 tab 08/19/20 mg-hydrochlorothiazide 12.5 mg tablet blood sugar diagnostic #50 each 08/26/20 oxycodone 5 mg PO Q6H PRN #14 tab 10/18/20 tamsulosin [Flomax] 0.4 mg PO DAILY #7 cap 10/18/20 Allergies Allergy/AdvReac Type Severity Reaction Status Date / Time NSAIDS (Non-Steroidal AdvReac Intermediate GI bleed Verified 10/18/20 12:58 Anti-Inflamma Review of Systems Review of Systems ROS Unobtainable: All systems reviewed & are unremarkable except as noted in HPI and below Patient History Medical History Anemia (2010) Colon polyps (2010) Diabetes mellitus (1998) Diabetic neuropathy Diverticular disease (2010) Essential hypertension (08/17/17) GERD (gastroesophageal reflux disease) (2008) GI bleeding (2010) Gout (2008) Hypertension (1994) Kidney stone on right side Obesity (BMI 30.0-34.9) Uncontrolled type 2 diabetes mellitus Surgical History Anesthesia Status post laparoscopy (2004) Family History Father Hypertension Alzheimer's disease Cancer Grandfather Heart disease Grandmother No problems noted. Mother Cancer Grandfather Heart disease Grandmother Diabetes mellitus Social History marital status: unmarried,single household members: none Smoking Status: Former smoker alcohol intake: current substance use type: marijuana (monthly for insomnia) Smoking Status: Former smoker alcohol intake frequency: a few times a month Substance Use Type: marijuana Exam Narrative Exam Narrative: GENERAL: Alert and oriented x three, well-nourished male in mild distress. HEENT: Head normocephalic, atraumatic, EOMI, pupils reactive, face symmetric, moist mucous membranes NECK: Supple, full range of motion CARDIOVASCULAR: Regular rate and rhythm without murmurs, rubs or gallops. RESPIRATORY: Breath sounds equal bilaterally, no wheezes rales or rhonchi. ABDOMEN: Soft, nontender the palpation. Normoactive bowel sounds all 4 quadrants. No guarding or rebound, rigidity, no mass. No bruit or pulsatile mass. : No CVA tenderness EXTREMITIES: Normal range of motion, no clubbing or edema. Neurovascularly intact NEUROLOGICAL: Cranial nerves II through XII grossly intact. Moving all extremities SKIN: Warm, dry, no petechiae, no rashes or lesions. Initial Vital Signs Initial Vital Signs: Vital Signs Temperature 97.1 F L 10/18/20 12:55 Pulse Rate 128 H 10/18/20 12:55 Respiratory Rate 24 10/18/20 12:55 Blood Pressure 202/128 H 10/18/20 12:55 Pulse Oximetry 93 10/18/20 12:55 Course Orders Ordered: ED Orders 10/18/20 12:59 XR chest 1V Stat EKG-12 Lead Stat RT Consult Eval and Treat Now 10/18/20 13:34 Complete Blood Count AUTO DIFF Stat Comprehensive Metabolic Panel Stat Lactate (Lactic Acid) Stat Lipase Stat Partial Thromboplastin Time Stat Procalcitonin Stat Prothrombin Time INR Stat 10/18/20 13:57 Blood Culture Stat 10/18/20 15:00 Urinalysis and Microscopic Stat Urine Culture Stat 10/18/20 16:03 CT abdomen pelvis w con Stat Discontinued Medications Sodium Chloride (Normal Saline 0.9%) 1,000 mls @ 1,000 mls/hr IV BOLUS ONE Stop: 10/18/20 14:50 Last Infusion: 10/18/20 15:38 Dose: 0 mls/hr Documented by: Admin: 10/18/20 14:04 Dose: 1,000 mls/hr Documented by: RAHUL Morphine Sulfate (Morphine 2 Mg/Ml Inj) 2 mg IV NOW ONE Stop: 10/18/20 16:02 Last Admin: 10/18/20 16:04 Dose: 2 mg Documented by: RAHUL Morphine Sulfate (Morphine 2 Mg/Ml Inj) 2 mg IV NOW ONE Stop: 10/18/20 16:26 Last Admin: 10/18/20 16:29 Dose: 2 mg Documented by: MARY Ondansetron HCl (Ondansetron 4 Mg/2 Ml Inj) 4 mg IV NOW ONE Stop: 10/18/20 13:00 Last Admin: 10/18/20 14:04 Dose: 4 mg Documented by: RAHUL Ondansetron HCl (Ondansetron 4 Mg/2 Ml Inj) 4 mg IV NOW ONE Stop: 10/18/20 16:06 Last Admin: 10/18/20 16:19 Dose: 4 mg Documented by: RAHUL Tamsulosin HCl (Tamsulosin 0.4 Mg Capsule) 0.4 mg PO NOW ONE Stop: 10/18/20 16:54 Last Admin: 10/18/20 17:31 Dose: 0.4 mg Documented by: RAHUL Reevaluation(s) Reevaluation #1: Patient feels much more comfortable at this time. We reviewed patient's labs. His tachycardia has improved. He still hypertensive here. He was vomiting so likely has not been able to keep down any of his blood pressure medications before being in the emergency department. He does have a mild leukocytosis but no obvious signs of infection in his urine. Renal function slightly decreased and we reviewed this. Patient states he has follow-up on Wednesday with Dr. Owen and we discussed strict return precautions over the weekend. He feels comfortable returning home and states he has passed kidney stones with out major issue in the past. Time: 17:18 Vital Signs Vital signs: Vital Signs - 8 hr 10/18/20 12:55 10/18/20 14:10 10/18/20 15:41 Temperature 97.1 F L Pulse Rate 128 H 120 H 90 Respiratory Rate 24 14 12 Blood Pressure 202/128 H 176/119 H 195/117 H Pulse Oximetry 93 95 99 10/18/20 17:30 Temperature Pulse Rate 90 Respiratory Rate 20 Blood Pressure 159/125 H Pulse Oximetry 96 MDM - Abdominal Pain Lab Data Attestation: I reviewed the patient's lab results. Result diagrams: 10/18/20 13:34 10/18/20 13:34 Labs: Lab Results 10/18/20 10/18/20 10/18/20 Range/Units 13:34 13:34 13:34 WBC 15.6 H (4.5-11.0) X10^3/uL RBC 4.77 (4.5-5.9) X10^6/uL Hgb 13.7 (13.5-17.5) g/dL Hct 41.9 (41-53) % MCV 87.9 (80-100) fL MCH 28.8 (26-34) PG MCHC 32.8 (30-36) % RDW 15.3 H (11.6-14.8) % Plt Count 305 (150-400) X10^3/uL Neut % (Auto) 86.4 H (50-75) % Lymph % (Auto) 7.0 L (25-40) % [place] % (Auto) 6.2 (3-14) % Eos % (Auto) 0.0 L (2-4) % Baso % (Auto) 0.4 (0-2) % Neut # (Auto) 77167 H (3697-5611) /uL Lymph # (Auto) 1100 (8694-7693) /uL Garrard # (Auto) 1000 H (0-900) /uL Eos # (Auto) 0 (0-450) /uL Baso # (Auto) 100 (0-100) /uL PT 12.2 (10.1-12.7) SECONDS INR 1.1 (0.9-1.3) APTT 36 D (26.4-36.2) SECONDS Sodium 139 (137-145) mmol/L Potassium 4.1 (3.4-5.1) mmol/L Chloride 99 (98-107) mmol/L Carbon Dioxide 29 (22-32) mmol/L BUN 28 H (9-20) mg/dL Creatinine 1.33 H (0.66-1.25) mg/dL Estimated GFR 53.2 L (>60) mL/min BUN/Creatinine Ratio 21.1 (6-22) Glucose 269 H D (80-110) mg/dL Lactate (0.7-2.1) mmol/L Calcium 9.9 (8.4-10.2) mg/dL Total Bilirubin 0.5 (0.2-1.3) mg/dL AST 20 (17-59) IU/L ALT 16 (<50) IU/L Alkaline Phosphatase 132 H (38-126) U/L Total Protein 8.0 (6.3-8.2) g/dL Albumin 4.6 (3.5-5.0) g/dL Globulin 3.4 (1.7-4.1) g/dL Albumin/Globulin Ratio 1.4 (1.0-2.8) Lipase 30 (23-300) U/L Procalcitonin 0.08 (<0.5) ng/mL Urine Color Urine Appearance Urine pH (4.5-8.0) Ur Specific [place] (1.000-1.035) Urine Protein (Negative) Urine Glucose (UA) (Negative) g/dL Urine Ketones (NEGATIVE) Urine Occult Blood (Negative) Urine Nitrate (Negative) Urine Bilirubin (NEGATIVE) Urine Urobilinogen (0.2) E.U./dL Ur Leukocyte Esterase (NEGATIVE) Urine RBC (0-5/HPF) Urine WBC (0-5/HPF) Ur Squamous Epith Cells (0-5/HPF) Amorphous Sediment Urine Bacteria (None) Ur Culture Indicated? 10/18/20 10/18/20 Range/Units 13:34 15:00 WBC (4.5-11.0) X10^3/uL RBC (4.5-5.9) X10^6/uL Hgb (13.5-17.5) g/dL Hct (41-53) % MCV (80-100) fL MCH (26-34) PG MCHC (30-36) % RDW (11.6-14.8) % Plt Count (150-400) X10^3/uL Neut % (Auto) (50-75) % Lymph % (Auto) (25-40) % [place] % (Auto) (3-14) % Eos % (Auto) (2-4) % Baso % (Auto) (0-2) % Neut # (Auto) (5964-5252) /uL Lymph # (Auto) (9046-5037) /uL [place]ard # (Auto) (0-900) /uL Eos # (Auto) (0-450) /uL Baso # (Auto) (0-100) /uL PT (10.1-12.7) SECONDS INR (0.9-1.3) APTT (26.4-36.2) SECONDS Sodium (137-145) mmol/L Potassium (3.4-5.1) mmol/L Chloride (98-107) mmol/L Carbon Dioxide (22-32) mmol/L BUN (9-20) mg/dL Creatinine (0.66-1.25) mg/dL Estimated GFR (>60) mL/min BUN/Creatinine Ratio (6-22) Glucose (80-110) mg/dL Lactate 1.7 (0.7-2.1) mmol/L Calcium (8.4-10.2) mg/dL Total Bilirubin (0.2-1.3) mg/dL AST (17-59) IU/L ALT (<50) IU/L Alkaline Phosphatase (38-126) U/L Total Protein (6.3-8.2) g/dL Albumin (3.5-5.0) g/dL Globulin (1.7-4.1) g/dL Albumin/Globulin Ratio (1.0-2.8) Lipase (23-300) U/L Procalcitonin (<0.5) ng/mL Urine Color Yellow Urine Appearance Clear Urine pH 6.0 (4.5-8.0) Ur Specific [place] 1.025 (1.000-1.035) Urine Protein 2+ H (Negative) Urine Glucose (UA) 1+ H (Negative) g/dL Urine Ketones Trace H (NEGATIVE) Urine Occult Blood 1+ H (Negative) Urine Nitrate Negative (Negative) Urine Bilirubin Negative (NEGATIVE) Urine Urobilinogen 0.2 (0.2) E.U./dL Ur Leukocyte Esterase Negative (NEGATIVE) Urine RBC 1-5/hpf (0-5/HPF) Urine WBC 0-1/hpf (0-5/HPF) Ur Squamous Epith Cells 0-1 /hpf (0-5/HPF) Amorphous Sediment 1+ Urine Bacteria None seen (None) Ur Culture Indicated? Cult not indicated Imaging Data CT scan - abdomen/pelvis: Radiologist's Impression: [address] [id number] Scan ReportSigned Patient: Elliot Burt [facility]#: [id number]: 1950cct:[id number]/Sex: 70 / MDate of Service: 10/18/20Loc: EDAccession Number: [id number] Procedure: CT abdomen pelvis w con Ordering Provider: India Holloway D.O. PROCEDURE: CT ABDOMEN PELVIS W CON INDICATIONS: ? obstruction, v and no BM x 24 hours TECHNIQUE: After the administration of intravenous contrast, 5 mm thick sections acquired from the diaphragm to the symphysis. 5 mm coronal and sagittal reformats were acquired. For radiation dose reduction, the following was used: automated exposure control, adjustment of mA and/or kV according to patient size. COMPARISON: [facility], CT, CT KIDNEY URETER BLADDER (KUB), 01/29/2020, 20:53. Outside Facility, RG, CT ABDOMEN/PELVIS W/WO CONTRAST, 12/11/2014, 15:03. Outside Facility, RG, CT ABDOMEN/PELVIS WITHOUT CONTRAST, 07/16/2014, 15:03. [facility], CT, ABDOMEN/PELVIS WITH CONTRAST, 10/06/2017, 13:47. FINDINGS: Image quality: Excellent. ABDOMEN: Lung bases: Lung bases are clear. Heart size is normal. Solid organs: Liver is normal in size and enhancement. Gallbladder is within normal limits. Biliary system is non dilated. Pancreas enhances normally. Spleen is normal in size and enhancement. No adrenal nodules. 3 millimeter stone noted at the right UVJ causing mild right-sided hydronephrosis. 4 millimeter and 2 millimeter nonobstructing stones of the lower pay of the right kidney. Mild right perinephric stranding and enhancement of the right genitourinary collecting system urothelium which could be due to obstruction versus urinary tract infection. 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 Bowel loops demonstrate normal wall thickness and caliber. Diverticula are scattered throughout the colon with numerous diverticuli in the left and sigmoid colon. No diverticulitis. No significant fecal volume identified in the colon. No free fluid or air. Nodes and vessels: No retroperitoneal or mesenteric adenopathy by size criteria. Aorta and inferior vena cava are normal in size. Scattered atherosclerotic calcifications involving the abdominal and pelvic vasculature. Two point several centimeter left common iliac artery ectasia and 1.6 centimeter right common iliac artery ectasia. Miscellaneous: No ventral hernias. PELVIS: Genitourinary: Diffuse urinary bladder wall thickening which could be due to underdistention or cystitis. Miscellaneous: No inguinal adenopathy. Small bilateral fat containing inguinal hernias. Bones: Chronic left 8th, 9th, 10th and 11th rib fractures. No suspicious bony lesions. No vertebral body compression fractures. Spine degenerative disc disease and facet arthropathy. IMPRESSION: 1. 3 millimeter stone at the right UVJ causing mild right-sided hydroureteronephrosis. 2. Right-sided perinephric stranding and right genitourinary urothelial enhancement which could be related to obstruction versus urinary tract infection. Recommend cor relation with urinalysis data. 3. 2 millimeter and 4 millimeter nonobstructing right renal stones. 4. 2.0 centimeter left common iliac and 1.6 centimeter right common iliac artery ectasia. 5. Colonic diverticulosis without evidence of diverticulitis. 6. No significant colonic fecal loading. Dictated by: Luh Doherty MD, PhD on 10/18/2020 at 16:26 Approved by: Luh Doherty MD, PhD on 10/18/2020 at 16:38 ECG Data Attestation: I personally reviewed and interpreted this ECG as follows: Interpretation: Sinus tachycardia rate of 1 ID interval 194 QRS 88 QTC of 439. No acute ST elevation or depression appreciated. Left anterior fascicular block is present. MDM Narrative Medical decision making narrative: This is a 70-year-old male comes to the emergency department with complaint of acute abdominal pain, nausea and vomiting and no bowel movement or flatus for 24 hours. Patient has a prior surgical history of gastric sleeve he also has discomfort as his bladder feels that on exam he is not tender with palpation. Patient was hypertensive on arrival and continues to be so he was tachycardic but that has improved with fluids. Patient's CT shows a right renal stone that is 3 mm with some perinephric stranding possibly mild hydro. Patient's renal function does have a slight bump. No signs of infection. Urine culture was ordered as patient does have a leukocytosis. He has been afebrile in the department. His tachycardia has improved and he is feeling much better and feels safe to return home at this time. Discharge Plan Departure Patient Disposition: Home Clinical Impression: Kidney stone on right side Instructions: Kidney Stones -- Adult Activity Restrictions/Additional Instructions: Follow up with urology or your physician in the next 2-3 days for recheck. Your renal function is slightly decreased so you do need to have your creatinine rechecked by Wednesday or Wednesday at the latest. You have a kidney stone on the right side. Take flomax until completely gone. Take Tylenol up to a 1000 mg every 8 hours as needed for pain. You may take oxycodone 1-2 tablets every 6 hours as needed for pain. This medication can make you sleepy do not drive, perform hazardous activities, make any major decisions while taking this medication. It also will make you consti pated so make sure you take a stool softener such as Colace 1 or 2 times daily until stools are soft and regular. Return for fevers greater 100.4 F, persistent vomiting, new or worsening abdominal, back or flank pain, inability to urinate, black or bloody stools or other new or concerning symptoms. Prescriptions: New tamsulosin [Flomax] 0.4 mg capsule 0.4 mg PO DAILY Qty: 7 RF: 0 oxycodone 5 mg tablet 5 mg PO Q6H PRN (Reason: pain) Qty: 14 RF: 0 No Action atorvastatin 40 mg tablet 40 mg PO DAILY Qty: 90 RF: 3 (DME) blood-glucose meter Misc See Rx Instructions .ROUTE .MEDSUPPLY Qty: 1 RF: 0 (DME) lancets Misc See Rx Instructions .ROUTE .MEDSUPPLY Qty: 50 RF: 0 ferrous sulfate [Iron (ferrous sulfate)] 325 MG tablet 1 mg PO DAILY Qty: 0 RF: 0 cholecalciferol (vitamin D3) [Vitamin D3] 2,000 UNIT capsule 2,000 u PO QDAY Qty: 0 RF: 0 Chondroitin Sulfate 250 MG capsule 1 mg PO DAILY Qty: 0 RF: 0 omega 5-ykd-fuy-fish oil [Fish Oil] 1,000 MG capsule 1 cap PO BID Qty: 0 RF: 0 glucosamine sulfate [Cidatrine] 500 MG tablet 1,500 mg PO QDAY Qty: 0 RF: 0 amlodipine 10 mg tablet 10 mg PO QDAY Qty: 90 RF: 3 metformin 1,000 mg tablet 1,000 mg PO BID Qty: 180 RF: 3 valsartan-hydrochlorothiazide 160-12.5 mg tablet 1 tab PO DAILY Qty: 90 RF: 3 (DME) Blood Glucose Test Strip See Rx Instructions .ROUTE .MEDSUPPLY Qty: 50 RF: 3 Referrals: Yury Owen MD [Primary Care Provider] -
[2020-10-18 15:41] VITALS: BP 195/117; PULSE 90; RESP 12; O2SAT 99
--- NOTE | 2020-10-18 16:03 | DI.CT.S_ITS ---
PROCEDURE: CT ABDOMEN PELVIS W CON INDICATIONS: ? obstruction, v and no BM x 24 hours TECHNIQUE: After the administration of intravenous contrast, 5 mm thick sections acquired from the diaphragm to the symphysis. 5 mm coronal and sagittal reformats were acquired. For radiation dose reduction, the following was used: automated exposure control, adjustment of mA and/or kV according to patient size. COMPARISON: [facility], CT, CT KIDNEY URETER BLADDER (KUB), 01/29/2020, 20:53. Outside Facility, RG, CT ABDOMEN/PELVIS W/WO CONTRAST, 12/11/2014, 15:03. Outside Facility, RG, CT ABDOMEN/PELVIS WITHOUT CONTRAST, 07/16/2014, 15:03. [facility], CT, ABDOMEN/PELVIS WITH CONTRAST, 10/06/2017, 13:47. FINDINGS: Image quality: Excellent. ABDOMEN: Lung bases: Lung bases are clear. Heart size is normal. Solid organs: Liver is normal in size and enhancement. Gallbladder is within normal limits. Biliary system is non dilated. Pancreas enhances normally. Spleen is normal in size and enhancement. No adrenal nodules. 3 millimeter stone noted at the right UVJ causing mild right-sided hydronephrosis. 4 millimeter and 2 millimeter nonobstructing stones of the lower pay of the right kidney. Mild right perinephric stranding and enhancement of the right genitourinary collecting system urothelium which could be due to obstruction versus urinary tract infection. 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 Bowel loops demonstrate normal wall thickness and caliber. Diverticula are scattered throughout the colon with numerous diverticuli in the left and sigmoid colon. No diverticulitis. No significant fecal volume identified in the colon. No free fluid or air. Nodes and vessels: No retroperitoneal or mesenteric adenopathy by size criteria. Aorta and inferior vena cava are normal in size. Scattered atherosclerotic calcifications involving the abdominal and pelvic vasculature. Two point several centimeter left common iliac artery ectasia and 1.6 centimeter right common iliac artery ectasia. Miscellaneous: No ventral hernias. PELVIS: Genitourinary: Diffuse urinary bladder wall thickening which could be due to underdistention or cystitis. Miscellaneous: No inguinal adenopathy. Small bilateral fat containing inguinal hernias. Bones: Chronic left 8th, 9th, 10th and 11th rib fractures. No suspicious bony lesions. No vertebral body compression fractures. Spine degenerative disc disease and facet arthropathy. IMPRESSION: 1. 3 millimeter stone at the right UVJ causing mild right-sided hydroureteronephrosis. 2. Right-sided perinephric stranding and right genitourinary urothelial enhancement which could be related to obstruction versus urinary tract infection. Recommend correlation with urinalysis data. 3. 2 millimeter and 4 millimeter nonobstructing right renal stones. 4. 2.0 centimeter left common iliac and 1.6 centimeter right common iliac artery ectasia. 5. Colonic diverticulosis without evidence of diverticulitis. 6. No significant colonic fecal loading. Dictated by: Luh Doherty MD, PhD on 10/18/2020 at 16:26 Approved by: Luh Doherty MD, PhD on 10/18/2020 at 16:38
[2020-10-18] MEDS: MORPHINE 2 MG/ML INJ IV ×2 (16:04→16:29)
--- NOTE | 2020-10-18 16:26 | PC.NURSE ---
patient up to restroom, reports increase pain, passed two drops of bright red blood.
[2020-10-18 17:30] VITALS: BP 159/125; PULSE 90; RESP 20; O2SAT 96
[2020-10-18] MEDS: TAMSULOSIN 0.4 MG CAPSULE PO (17:31)
== END 2020-10-18 17:36 | disposition home or self-care (01) ==
PROVIDERS: Emergency Provider Emergency Medicine; Family Provider Family Medicine; PCP Internal Medicine
DX: N20.0 Calculus of kidney (principal); R00.0 Tachycardia, unspecified; I44.4 Left anterior fascicular block
CPT/HCPCS: 36415; 51798; 71045; 74177; 80053; 81001; 83605; 83690; 84145; 85025; 85610; 85730; 87040; 87077; 87086; 87186; 93005; 93010; 96361; 96374; 96375; 96376; 99285; J2270; J2405; Q9967

== ENCOUNTER → 2020-10-22 11:11 | Outpatient (CLI) | payer MEDICARE, OTHER, SELFPAY ==
[2020-10-22 12:57] LABS: BUN Creatinine Ratio 24.1 (6-22); Blood Urea Nitrogen 33 mg/dL (9-20); Calcium 9.6 mg/dL (8.4-10.2); Carbon Dioxide 29 mmol/L (22-32); Chloride 104 mmol/L (98-107); Estimated Glomerular Filt Rate 51.4 mL/min (>60); Glucose 171 mg/dL (80-110); HEMOLYSIS < 15 (0-50); Potassium 4.3 mmol/L (3.4-5.1); Sodium 142 mmol/L (137-145)
== END ==
PROVIDERS: Family Provider Family Medicine; PCP Internal Medicine; Referring Provider Internal Medicine; Visit Provider Internal Medicine
DX: I10 Essential (primary) hypertension (principal); N20.0 Calculus of kidney
CPT/HCPCS: 36415; 80048

== ENCOUNTER → 2021-01-20 12:49 | Outpatient (CLI) | payer MEDICARE, OTHER, SELFPAY ==
[2021-01-20 14:42] LABS: Hemoglobin A1C% w Est Avg Glu 8.8 % (4.0-6.0)
[2021-01-20 14:57] LABS: BUN Creatinine Ratio 22.9 (6-22); Blood Urea Nitrogen 30 mg/dL (9-20); Calcium 9.7 mg/dL (8.4-10.2); Carbon Dioxide 25 mmol/L (22-32); Chloride 108 mmol/L (98-107); Estimated Glomerular Filt Rate 54.1 mL/min (>60); Glucose 130 mg/dL (80-110); HEMOLYSIS < 15 (0-50); Potassium 4.1 mmol/L (3.4-5.1); Sodium 143 mmol/L (137-145)
== END ==
PROVIDERS: Family Provider Family Medicine; PCP Internal Medicine; Referring Provider Internal Medicine; Visit Provider Internal Medicine
DX: E11.65 Type 2 diabetes mellitus with hyperglycemia (principal)
CPT/HCPCS: 36415; 80048; 83036

== ENCOUNTER → 2021-04-15 13:02 | Outpatient (CLI) | payer MEDICARE, OTHER, SELFPAY ==
[2021-04-15 14:15] LABS: Add Manual Diff / Slide Review NO; Basophils Absolute Auto 0 /uL (0-100); Basophils Percent Auto 0.5 % (0-2); Eosinophils Absolute Auto 500 /uL (0-450); Eosinophils Percent Auto 4.8 % (2-4); Hematocrit 37.2 % (41-53); Hemoglobin 11.9 g/dL (13.5-17.5); Lymphocytes Absolute Auto 1900 /uL (1100-4500); Lymphocytes Percent Auto 19.5 % (25-40); Mean Corpuscular HGB Conc 31.9 % (30-36); Mean Corpuscular Hemoglobin 28.1 PG (26-34); Mean Corpuscular Volume 88.1 fL (80-100); Monocytes Absolute Auto 600 /uL (0-900); Monocytes Percent Auto 5.9 % (3-14); Neutrophils Absolute Auto 6600 /uL (1500-7000); Neutrophils Percent Auto 69.3 % (50-75); Platelet Count 364 X10^3/uL (150-400); Red Blood Cell Count 4.22 X10^6/uL (4.5-5.9); Red Cell Distribution Width 14.9 % (11.6-14.8); White Blood Cell Count 9.5 X10^3/uL (4.5-11.0)
[2021-04-15 14:21] LABS: Hemoglobin A1C% w Est Avg Glu 6.6 % (4.0-6.0)
[2021-04-15 14:52] LABS: Alanine Aminotransferase 13 IU/L (<50); Albumin 4.3 g/dL (3.5-5.0); Albumin Globulin Ratio 1.4 (1.0-2.8); Alkaline Phosphatase 124 U/L (38-126); Aspartate Aminotransferase 17 IU/L (17-59); BUN Creatinine Ratio 20.7 (6-22); Bilirubin Total 0.4 mg/dL (0.2-1.3); Blood Urea Nitrogen 25 mg/dL (9-20); Calcium 9.5 mg/dL (8.4-10.2); Carbon Dioxide 30 mmol/L (22-32); Chloride 104 mmol/L (98-107); Estimated Glomerular Filt Rate 59.3 mL/min (>60); Globulin 3.1 g/dL (1.7-4.1); Glucose 105 mg/dL (80-110); HEMOLYSIS < 15 (0-50); Potassium 4.5 mmol/L (3.4-5.1); Sodium 143 mmol/L (137-145); Total Protein 7.4 g/dL (6.3-8.2); Uric Acid 7.9 mg/dL (3.5-8.5)
[2021-04-18 17:53] LABS: Percent Free Testosterone 1.69 % (1.50-4.20); Testosterone Free 3.08 ng/dL (5.00-21.00); Testosterone Total 182.3 ng/dL (264.0-916.0)
== END ==
PROVIDERS: Family Provider Family Medicine; PCP Internal Medicine; Referring Provider Internal Medicine; Visit Provider Internal Medicine
DX: I10 Essential (primary) hypertension (principal); E11.65 Type 2 diabetes mellitus with hyperglycemia; R53.83 Other fatigue; M10.9 Gout, unspecified
CPT/HCPCS: 36415; 80053; 83036; 84402; 84403; 84550; 85025

== ENCOUNTER → 2021-07-10 11:55 | Outpatient (CLI) | payer MEDICARE, OTHER, SELFPAY ==
[2021-07-10 13:48] LABS: Hemoglobin A1C% w Est Avg Glu 6.3 % (4.0-6.0)
[2021-07-10 13:50] LABS: BUN Creatinine Ratio 19.4 (6-22); Blood Urea Nitrogen 30 mg/dL (9-20); Calcium 10.1 mg/dL (8.4-10.2); Carbon Dioxide 29 mmol/L (22-32); Chloride 106 mmol/L (98-107); Estimated Glomerular Filt Rate 44.5 mL/min (>60); Glucose 100 mg/dL (80-110); HEMOLYSIS < 15 (0-50); Potassium 4.8 mmol/L (3.4-5.1); Sodium 146 mmol/L (137-145)
== END ==
PROVIDERS: Family Provider Family Medicine; PCP Internal Medicine; Referring Provider Internal Medicine; Visit Provider Internal Medicine
DX: E11.65 Type 2 diabetes mellitus with hyperglycemia (principal); I10 Essential (primary) hypertension
CPT/HCPCS: 36415; 80048; 83036

== ENCOUNTER → 2021-11-12 13:36 | Outpatient (CLI) | payer MEDICARE, OTHER, SELFPAY ==
[2021-11-12 14:16] LABS: Hemoglobin A1C% w Est Avg Glu 6.5 % (4.0-6.0)
[2021-11-12 14:41] LABS: Alanine Aminotransferase 13 IU/L (<50); Albumin 4.4 g/dL (3.5-5.0); Albumin Globulin Ratio 1.3 (1.0-2.8); Alkaline Phosphatase 112 U/L (38-126); Aspartate Aminotransferase 18 IU/L (17-59); Bilirubin Total 0.4 mg/dL (0.2-1.3); Blood Urea Nitrogen 25 mg/dL (9-20); Calcium 9.4 mg/dL (8.4-10.2); Carbon Dioxide 27 mmol/L (22-32); Chloride 106 mmol/L (98-107); Cholesterol 138 mg/dL (140-199); Estimated Glomerular Filt Rate 54 mL/min (>60); Globulin 3.4 g/dL (1.7-4.1); Glucose 92 mg/dL (80-110); HDL Cholesterol 26 mg/dL (40-60); HEMOLYSIS < 15 (0-50); LDL Cholesterol Calculated 76 mg/dL (<100); Potassium 4.3 mmol/L (3.4-5.1); Sodium 146 mmol/L (137-145); Total Protein 7.8 g/dL (6.3-8.2); Triglycerides 179 mg/dL (35-150)
== END ==
PROVIDERS: Family Provider Family Medicine; PCP Internal Medicine; Referring Provider Internal Medicine; Visit Provider Internal Medicine
DX: E11.65 Type 2 diabetes mellitus with hyperglycemia (principal); I10 Essential (primary) hypertension
CPT/HCPCS: 36415; 80053; 80061; 83036

== ENCOUNTER → 2022-05-11 12:42 | Outpatient (CLI) | payer MEDICARE, OTHER, SELFPAY ==
[2022-05-11 13:25] LABS: Hemoglobin A1C% w Est Avg Glu 6.9 % (4.0-6.0)
[2022-05-11 13:56] LABS: Alanine Aminotransferase 14 IU/L (<50); Albumin 3.8 g/dL (3.5-5.0); Albumin Globulin Ratio 1.1 (1.0-2.8); Alkaline Phosphatase 106 U/L (38-126); Aspartate Aminotransferase 16 IU/L (17-59); Bilirubin Total 0.3 mg/dL (0.2-1.3); Blood Urea Nitrogen 37 mg/dL (9-20); Calcium 9.1 mg/dL (8.4-10.2); Carbon Dioxide 27 mmol/L (22-32); Chloride 106 mmol/L (98-107); Cholesterol 98 mg/dL (140-199); Estimated Glomerular Filt Rate 50 mL/min (>60); Globulin 3.4 g/dL (1.7-4.1); Glucose 90 mg/dL (80-110); HDL Cholesterol 18 mg/dL (40-60); HEMOLYSIS < 15 (0-50); LDL Cholesterol Calculated 58 mg/dL (<100); Sodium 147 mmol/L (137-145); Total Protein 7.2 g/dL (6.3-8.2); Triglycerides 111 mg/dL (35-150)
== END ==
PROVIDERS: Family Provider Family Medicine; PCP Internal Medicine; Referring Provider Internal Medicine; Visit Provider Internal Medicine
DX: E11.9 Type 2 diabetes mellitus without complications (principal); I10 Essential (primary) hypertension; N18.31 Chronic kidney disease, stage 3a
CPT/HCPCS: 36415; 80053; 80061; 83036

== ENCOUNTER → 2022-08-20 16:40 | Outpatient (CLI) | payer MEDICARE, OTHER, SELFPAY ==
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
--- NOTE | 2022-08-20 16:42 | DI.RAD.S_ITS ---
PROCEDURE: XR FOOT LT MIN 3V INDICATIONS: Left ankle pain TECHNIQUE: Three views of the foot were acquired. COMPARISON: None. FINDINGS: Bones: There is a comminuted intra-articular fracture of the 1st distal phalanx with mild displacement of distal fracture fragments. No additional forefoot fracture is seen. Degenerative changes are seen in the 1st metatarsophalangeal joint and at the interphalangeal joints of the toes. There is a small plantar calcaneal enthesophyte. Soft tissues: Soft tissue edema is seen in the great toe. There is also mild soft tissue edema throughout the ankle and foot. IMPRESSION: Comminuted mildly displaced intra-articular fracture of the 1st distal phalangeal base. Approved by: Musa Schneider M.D. on 08/21/2022 at 9:36
== END ==
PROVIDERS: Family Provider Family Medicine; PCP Internal Medicine; Referring Provider Nurse Practitioner Family; Visit Provider Nurse Practitioner Family
DX: S92.422A Displaced fracture of distal phalanx of left great toe, initial encounter for closed fracture (principal); M25.572 Pain in left ankle and joints of left foot; R60.0 Localized edema
CPT/HCPCS: 36415; 73610; 73630; 84550

== ENCOUNTER → 2022-11-09 12:44 | Outpatient (CLI) | payer MEDICARE, OTHER, SELFPAY ==
--- NOTE | 2022-11-09 12:48 | DI.RAD.S_ITS ---
PROCEDURE: XR FOOT LT MIN 3V INDICATIONS: LEFT FOOT PAIN. Follow-up fracture. TECHNIQUE: 3 views of the foot were acquired. COMPARISON: [facility], CR, XR FOOT LT MIN 3V, 08/20/2022, 16:49. FINDINGS: Bones: Interval bone remodeling of the 5th distal phalanx fracture. Mild bony bunion formation of the 1st metatarsal head. Plantar calcaneal enthesophyte. Soft tissues: No tibiotalar joint effusion. Achilles tendon appears normal. IMPRESSION: Interval healing of the distal 1st phalanx fracture. Dictated by: Osmel Carcamo M.D. on 11/09/2022 at 14:24 Approved by: Osmel Carcamo M.D. on 11/09/2022 at 14:25
[2022-11-09 14:42] LABS: Alanine Aminotransferase 14 IU/L (<50); Albumin 3.9 g/dL (3.5-5.0); Alkaline Phosphatase 133 U/L (38-126); Aspartate Aminotransferase 21 IU/L (17-59); Bilirubin Total 0.4 mg/dL (0.2-1.3); Blood Urea Nitrogen 28 mg/dL (9-20); Carbon Dioxide 28 mmol/L (22-32); Chloride 104 mmol/L (98-107); Estimated Glomerular Filt Rate 50 mL/min (>60); Glucose 143 mg/dL (80-110); HEMOLYSIS < 15 (0-50); Potassium 3.7 mmol/L (3.4-5.1); Sodium 142 mmol/L (137-145); Total Protein 7.9 g/dL (6.3-8.2)
[2022-11-10 02:36] LABS: Labcorp Hemoglobin (Hb) A1c 7.3 % (4.8-5.6)
== END ==
PROVIDERS: Family Provider Family Medicine; PCP Internal Medicine; Referring Provider Podiatrist Foot & Ankle Surgery; Visit Provider Podiatrist Foot & Ankle Surgery
DX: S92.422D Displaced fracture of distal phalanx of left great toe, subsequent encounter for fracture with routine healing (principal); E11.22 Type 2 diabetes mellitus with diabetic chronic kidney disease; I12.9 Hypertensive chronic kidney disease with stage 1 through stage 4 chronic kidney disease, or unspecified chronic kidney disease; N18.31 Chronic kidney disease, stage 3a; X58.XXXD Exposure to other specified factors, subsequent encounter
CPT/HCPCS: 73630; 80053; 83036

== ENCOUNTER 2023-01-01 09:30 | Emergency (ER) | payer MEDICARE, OTHER, SELFPAY ==
[2023-01-01] VITALS (83 sets, daily range): BP systolic 106–185; BP diastolic 62–100; PULSE 66–120; RESP 15–41; TEMP 36.9; O2SAT 91–97; BMI 30.5
--- NOTE | 2023-01-01 09:36 | DI.RAD.S_ITS ---
PROCEDURE: XR CHEST 1V INDICATIONS: chest pain TECHNIQUE: One view of the chest was acquired. COMPARISON: [facility], CR, XR CHEST 1V, 10/18/2020, 13:17. FINDINGS: Surgical changes and devices: None. Lungs and pleura: Chronic elevation of the right hemidiaphragm with atelectasis of the right lung base. Relatively low left lung volume also noted. No focal consolidation. Mediastinum: Mediastinal contours appear normal. Heart size is normal. Bones and chest wall: No suspicious bony lesions. Overlying soft tissues appear unremarkable. IMPRESSION: Chronic elevation of the right hemidiaphragm with atelectasis of the right lung base. No acute cardiopulmonary abnormality. Approved by: Musa Schneider M.D. on 01/01/2023 at 9:50
--- NOTE | 2023-01-01 09:39 | ED.CHESTPAIN ---
HPI - Chest Pain General Chief Complaint: Chest Pain Stated Complaint: thinks hes having a heart attack Time Seen by Provider: 01/01/23 09:38 Source: patient Mode of arrival: Ambulatory Limitations: no limitations History of Present Illness HPI narrative: 72-year-old male former smoker with history of hypertension, hyperlipidemia and diabetes presents with a chief complaint of chest pain that started about 24 hours ago. He states that he had been in his normal state of health and while preparing to go shopping yesterday at about 11:00 a.m. developed left-sided chest pressure that is squeezing and heavy in nature. He states it seems to be worse with exertion and radiates into his left shoulder and jaw. He states that the symptoms last about 1 hour and with rest will eventually largely go away. He admits to associated symptoms such as dizziness, weakness, shortness of breath and nausea. He denies any history of the same. He denies any recent exercise intolerance. He denies recent travel or history of blood clot. He states the pain at its worst was a 3/10 and is currently a 3/10. He is allergic to the NSAIDs Related Data Home Medications Medication Instructions Recorded Confirmed chondroitin sulfate A 250 mg 1 mg PO DAILY ##0 09/07/17 12/28/22 capsule (Chondroitin Sulfate) glucosamine sulfate 500 mg tablet 1,500 mg PO QDAY ##0 09/07/17 12/28/22 (Cidatrine (glucosamine)) omega 9-kkl-gwa-fish oil 1,000 mg 1 cap PO BID ##0 09/07/17 12/28/22 (120 mg-180 mg) capsule (Fish Oil) cholecalciferol (vitamin D3) 50 50 mcg PO QDAY PRN #0 caps 12/28/22 12/28/22 mcg (2,000 unit) capsule (Vitamin D3) Previous Rx's Medication Instructions Recorded blood-glucose meter #1 ea 05/23/20 valsartan 160 1 tab PO DAILY #90 tabs 01/21/21 mg-hydrochlorothiazide 12.5 mg tablet amlodipine 10 mg tablet 10 mg PO QDAY #90 tabs 12/25/21 atorvastatin 40 mg tablet 20 mg PO DAILY #90 tabs 01/22/22 metformin 1,000 mg tablet 1,000 mg PO BID #180 tabs 01/22/22 glipizide 5 mg tablet 5 mg PO QPM #90 tabs 05/18/22 blood sugar diagnostic (Blood #100 ea 10/27/22 Glucose Test strips) lancets 30 gauge (TRUEplus Lancets) #100 ea 10/27/22 semaglutide 0.25 mg or 0.5 mg (2 0.5 mg (0.4 mL) SUBCUT QWEEK #6 mL 12/28/22 mg/1.5 mL) subcutaneous pen injector (Ozempic) Allergies Allergy/AdvReac Type Severity Reaction Status Date / Time NSAIDS (Non-Steroidal AdvReac Intermediate GI bleed Verified 01/01/23 09:37 Anti-Inflamma Review of Systems Review of Systems Narrative: GENERAL: See HPI HEENT: Denies sinus pain, ear pain, sore throat, difficulty swallowing, dizziness. RESPIRATORY: Denies dyspnea, cough, wheezing, hemoptysis, sputum. CARDIOVASCULAR: See HPI GASTROINTESTINAL: See HPI : Denies dysuria, frequency, incontinence, hematuria, urinary retention. MUSCULOSKELETAL: denies weakness, joint pain, or bony pain SKIN: Denies rash, skin lesions, or other NEUROLOGIC: Denies weakness, headache, numbness, change in speech, confusion, seizures, incoordination. PSYCHIATRIC: No concerning psychosocial issues. 12 point review of systems is negative except for those stated above Patient History Medical History Anemia (2010) Chronic renal failure, stage 3a Colon polyps (2010) Diabetes mellitus (1998) Diabetic neuropathy Diverticular disease (2010) Essential hypertension (08/17/17) GERD (gastroesophageal reflux disease) (2008) GI bleeding (2010) Gout (2008) Hypogonadism in male Kidney stone on right side Obesity (BMI 30.0-34.9) Type 2 diabetes mellitus Uncontrolled type 2 diabetes mellitus Surgical History Anesthesia Status post laparoscopy (2004) Family History Father Hypertension Alzheimer's disease Cancer Grandfather Heart disease Grandmother No problems noted. Mother Cancer Grandfather Heart disease Grandmother Diabetes mellitus Social History marital status: unmarried,single household members: none Smoking Status: Former smoker alcohol intake: current substance use type: marijuana Smoking Status: Former smoker alcohol intake frequency: a few times a month Substance Use Type: marijuana Exam Narrative Exam Narrative: GENERAL: [72] year old patient appears stated age. Well-developed patient, in mild distress. Appears uncomfortable HEAD: Atraumatic. Normocephalic. EYES: Pupils equal round and reactive. Extraocular motions intact. No scleral icterus. No injection or drainage. ENT: Nose without bleeding, purulent drainage. Throat without erythema, tonsillar hypertrophy or exudate. Airway patent. NECK: Trachea midline. Non tender CARDIOVASCULAR: Regular rate and rhythm without murmurs, gallops, or rubs. No reproducible pain on palpation or use of left arm RESPIRATORY: Clear to auscultation. Breath sounds equal bilaterally. No wheezes, rales, or rhonchi. GASTROINTESTINAL: Abdomen soft, non-tender, nondistended. EXTREMITIES: No edema or joint tenderness. BACK: Nontender without deformity or crepitance. No flank tenderness. NEURO: AOx3. SKIN: No rash or erythema of visible areas Initial Vital Signs Initial Vital Signs: Vital Signs Temperature 98.5 F 01/01/23 09:32 Pulse Rate 107 H 01/01/23 09:32 Respiratory Rate 15 01/01/23 09:32 Blood Pressure 158/100 H 01/01/23 09:32 Pulse Oximetry 97 01/01/23 09:32 Oxygen Delivery Method Room Air 01/01/23 09:32 Course Orders Ordered: ED Orders 01/01/23 10:13 CT angio chest PE protocol Stat 01/01/23 11:35 Troponin & CK Cardiac Panel Stat 01/01/23 14:20 EKG-12 Lead Stat 01/01/23 16:30 COVID19 -Nasal RAPID Stat Nitroglycerin (Nitroglycerin 0.4 Mg Sl Tab) 0.4 mg SL [id number] PRN PRN Reason: Chest Pain Last Admin: 01/01/23 09:43 Dose: 0.4 mg Documented By: MARIBEL Nitroglycerin (Nitroglycerin 0.4 Mg Sl Tab) 0.4 mg SL [id number] PRN PRN Reason: Chest Pain Discontinued Medications Aspirin (Aspirin 81 Mg Chew Tab) 324 mg PO NOW ONE Stop: 01/01/23 09:37 Last Admin: 01/01/23 09:44 Dose: Not Given Documented By: MARIBEL Metoprolol Tartrate (Metoprolol Tartrate 5 Mg/5 Ml Inj) 5 mg IV Q5M [facility] Stop: 01/01/23 09:56 Last Admin: 01/01/23 09:59 Dose: Not Given Documented By: AMJenna Admin: 01/01/23 09:59 Dose: Not Given Documented By: Admin: 01/01/23 09:59 Dose: Not Given Documented By: AMU Nitroglycerin (Nitroglycerin Oint 1 Inch/Gm Oint...G.) 2 inch TOP NOW ONE Stop: 01/01/23 14:05 Last Admin: 01/01/23 14:11 Dose: 2 inch Documented By: SPF Reevaluation(s) Reevaluation #1: Patient pain-free after nitro Reevaluation #2: patient walked to bathroom, pain came back resolved after rest for 15-20 minutes Consultations Consultation #1: discussed with Dr. Muir (Hospitalist) after discussion of patient's history, physical exam recommends transfer given concerning story and lack of access to stress testing Consultation #2: Discussed with on-call Cardiology, Dr Reid, agrees with diagnosis and plan for transfer. Given lack of EKG changes or troponin, no indication for heparin at this time Vital Signs Vital signs: Vital Signs - 8 hr 01/01/23 11:00 01/01/23 11:05 01/01/23 11:05 Pulse Rate 93 H 85 Respiratory Rate 19 22 Blood Pressure 152/79 H Pulse Oximetry 93 94 Oxygen Delivery Method Room Air Oxygen Flow Rate 01/01/23 11:30 01/01/23 11:30 01/01/23 12:00 Pulse Rate 70 Respiratory Rate 26 H Blood Pressure 147/76 H 153/76 H Pulse Oximetry 97 Oxygen Delivery Method Oxygen Flow Rate 01/01/23 12:00 01/01/23 12:28 01/01/23 12:30 Pulse Rate 75 101 H Respiratory Rate 28 H 26 H Blood Pressure 151/76 H Pulse Oximetry 93 96 Oxygen Delivery Method Room Air Oxygen Flow Rate 01/01/23 12:30 01/01/23 13:00 01/01/23 13:30 Pulse Rate 94 H 66 Respiratory Rate 26 H 15 Blood Pressure 148/76 H Pulse Oximetry 96 96 Oxygen Delivery Method Room Air Oxygen Flow Rate 01/01/23 13:30 01/01/23 14:00 01/01/23 14:00 Pulse Rate 97 H 109 H Respiratory Rate 26 H 36 H Blood Pressure 185/98 H Pulse Oximetry 93 94 Oxygen Delivery Method Oxygen Flow Rate 01/01/23 14:11 01/01/23 14:04 01/01/23 14:04 Pulse Rate 109 H 111 H Respiratory Rate Blood Pressure 166/92 H 178/99 H Pulse Oximetry 95 Oxygen Delivery Method Oxygen Flow Rate 01/01/23 14:09 01/01/23 14:09 01/01/23 14:42 Pulse Rate 106 H 108 H Respiratory Rate 34 H 22 Blood Pressure 166/92 H 151/86 H Pulse Oximetry 94 Oxygen Delivery Method Oxygen Flow Rate 01/01/23 14:27 01/01/23 14:27 01/01/23 14:30 Pulse Rate 102 H Respiratory Rate 36 H Blood Pressure 145/82 H 142/79 H Pulse Oximetry 93 Oxygen Delivery Method Oxygen Flow Rate 01/01/23 14:30 01/01/23 14:35 01/01/23 14:35 Pulse Rate 101 H 105 H Respiratory Rate 28 H 31 H Blood Pressure 150/85 H Pulse Oximetry 93 92 Oxygen Delivery Method Room Air Room Air Oxygen Flow Rate 01/01/23 14:40 01/01/23 14:40 01/01/23 14:45 Pulse Rate 104 H 105 H Respiratory Rate Blood Pressure 151/86 H Pulse Oximetry 93 92 Oxygen Delivery Method Oxygen Flow Rate 01/01/23 14:45 01/01/23 14:50 01/01/23 14:50 Pulse Rate 108 H Respiratory Rate Blood Pressure 143/79 H 153/91 H Pulse Oximetry 94 Oxygen Delivery Method Oxygen Flow Rate 01/01/23 14:55 01/01/23 14:55 01/01/23 15:00 Pulse Rate 109 H Respiratory Rate Blood Pressure 155/93 H 141/84 H Pulse Oximetry 93 Oxygen Delivery Method Oxygen Flow Rate 01/01/23 15:00 01/01/23 15:05 01/01/23 15:05 Pulse Rate 108 H 108 H Respiratory Rate 22 Blood Pressure 139/83 Pulse Oximetry 92 92 Oxygen Delivery Method Room Air Oxygen Flow Rate 01/01/23 15:10 01/01/23 15:10 01/01/23 15:15 Pulse Rate 109 H Respiratory Rate Blood Pressure 149/86 H 150/93 H Pulse Oximetry 92 Oxygen Delivery Method Oxygen Flow Rate 01/01/23 15:15 01/01/23 15:20 01/01/23 15:20 Pulse Rate 107 H 110 H Respiratory Rate 23 Blood Pressure 146/90 H Pulse Oximetry 92 95 Oxygen Delivery Method Oxygen Flow Rate 01/01/23 15:25 01/01/23 15:25 01/01/23 15:30 Pulse Rate 109 H Respiratory Rate 25 H Blood Pressure 140/78 136/77 Pulse Oximetry 94 Oxygen Delivery Method Oxygen Flow Rate 01/01/23 15:30 01/01/23 15:35 01/01/23 15:35 Pulse Rate 109 H 114 H Respiratory Rate 26 H 24 Blood Pressure 137/85 Pulse Oximetry 93 95 Oxygen Delivery Method Oxygen Flow Rate 01/01/23 15:40 01/01/23 15:40 01/01/23 15:45 Pulse Rate 109 H Respiratory Rate 19 Blood Pressure 142/86 H 135/86 Pulse Oximetry 92 Oxygen Delivery Method Room Air Oxygen Flow Rate 01/01/23 15:45 01/01/23 15:50 01/01/23 15:50 Pulse Rate 110 H 109 H Respiratory Rate 24 25 H Blood Pressure 128/83 Pulse Oximetry 93 91 Oxygen Delivery Method Room Air Oxygen Flow Rate 01/01/23 15:55 01/01/23 15:55 01/01/23 16:00 Pulse Rate 111 H Respiratory Rate 30 H Blood Pressure 141/94 H 137/91 H Pulse Oximetry 92 Oxygen Delivery Method Nasal Cannula Oxygen Flow Rate 1 01/01/23 16:00 01/01/23 16:05 01/01/23 16:05 Pulse Rate 109 H 111 H Respiratory Rate 19 28 H Blood Pressure 145/86 H Pulse Oximetry 93 93 Oxygen Delivery Method Nasal Cannula Oxygen Flow Rate 1 01/01/23 16:10 01/01/23 16:10 01/01/23 16:15 Pulse Rate 113 H Respiratory Rate 31 H Blood Pressure 134/81 145/81 H Pulse Oximetry 95 Oxygen Delivery Method Nasal Cannula Oxygen Flow Rate 1 01/01/23 16:15 01/01/23 16:20 01/01/23 16:20 Pulse Rate 115 H 116 H Respiratory Rate 41 H 30 H Blood Pressure 144/88 H Pulse Oximetry 93 94 Oxygen Delivery Method Nasal Cannula Nasal Cannula Oxygen Flow Rate 1 1 01/01/23 16:25 01/01/23 16:25 01/01/23 16:30 Pulse Rate 117 H Respiratory Rate 30 H Blood Pressure 132/84 122/74 Pulse Oximetry 93 Oxygen Delivery Method Nasal Cannula Oxygen Flow Rate 1 01/01/23 16:30 01/01/23 16:35 01/01/23 16:35 Pulse Rate 115 H 120 H Respiratory Rate 26 H 25 H Blood Pressure 144/70 H Pulse Oximetry 93 93 Oxygen Delivery Method Oxygen Flow Rate 01/01/23 16:40 01/01/23 16:40 01/01/23 16:45 Pulse Rate 112 H Respiratory Rate 24 Blood Pressure 123/62 123/74 Pulse Oximetry 93 Oxygen Delivery Method Oxygen Flow Rate 01/01/23 16:45 01/01/23 16:50 01/01/23 16:50 Pulse Rate 116 H 116 H Respiratory Rate Blood Pressure 126/74 Pulse Oximetry 93 93 Oxygen Delivery Method Nasal Cannula Nasal Cannula Oxygen Flow Rate 1 1 01/01/23 16:55 01/01/23 16:55 01/01/23 17:00 Pulse Rate 114 H Respiratory Rate Blood Pressure 133/74 141/82 H Pulse Oximetry 93 Oxygen Delivery Method Oxygen Flow Rate 01/01/23 17:00 01/01/23 17:05 01/01/23 17:05 Pulse Rate 115 H 116 H Respiratory Rate Blood Pressure 132/80 Pulse Oximetry 94 93 Oxygen Delivery Method Oxygen Flow Rate 01/01/23 17:10 01/01/23 17:10 01/01/23 17:15 Pulse Rate 115 H Respiratory Rate Blood Pressure 140/81 133/91 H Pulse Oximetry 93 Oxygen Delivery Method Oxygen Flow Rate 01/01/23 17:15 01/01/23 17:25 01/01/23 17:25 Pulse Rate 115 H 109 H Respiratory Rate 22 Blood Pressure 131/79 Pulse Oximetry 94 94 Oxygen Delivery Method Nasal Cannula Oxygen Flow Rate 1 01/01/23 17:30 01/01/23 17:30 01/01/23 17:35 Pulse Rate 110 H Respiratory Rate 26 H Blood Pressure 130/80 145/88 H Pulse Oximetry 94 Oxygen Delivery Method Nasal Cannula Oxygen Flow Rate 1 01/01/23 17:35 01/01/23 17:40 01/01/23 17:40 Pulse Rate 112 H 110 H Respiratory Rate 25 H 21 Blood Pressure 127/89 Pulse Oximetry 95 93 Oxygen Delivery Method Oxygen Flow Rate 01/01/23 17:45 01/01/23 17:45 01/01/23 17:50 Pulse Rate 109 H Respiratory Rate 17 Blood Pressure 127/84 127/82 Pulse Oximetry 95 Oxygen Delivery Method Oxygen Flow Rate 01/01/23 17:50 01/01/23 17:55 01/01/23 17:55 Pulse Rate 109 H 107 H Respiratory Rate 18 17 Blood Pressure 118/80 Pulse Oximetry 94 94 Oxygen Delivery Method Oxygen Flow Rate 01/01/23 18:00 01/01/23 18:00 01/01/23 18:05 Pulse Rate 109 H 113 H Respiratory Rate 18 21 Blood Pressure 134/81 Pulse Oximetry 94 93 Oxygen Delivery Method Nasal Cannula Oxygen Flow Rate 1 01/01/23 18:05 01/01/23 18:10 01/01/23 18:10 Pulse Rate 114 H Respiratory Rate 19 Blood Pressure 136/89 124/85 Pulse Oximetry 93 Oxygen Delivery Method Oxygen Flow Rate 01/01/23 18:15 01/01/23 18:15 01/01/23 18:20 Pulse Rate 113 H Respiratory Rate 21 Blood Pressure 114/79 116/75 Pulse Oximetry 94 Oxygen Delivery Method Oxygen Flow Rate 01/01/23 18:20 01/01/23 18:25 01/01/23 18:25 Pulse Rate 113 H 112 H Respiratory Rate 20 20 Blood Pressure 120/78 Pulse Oximetry 93 93 Oxygen Delivery Method Nasal Cannula Oxygen Flow Rate 1 01/01/23 18:30 01/01/23 18:30 01/01/23 18:35 Pulse Rate 119 H Respiratory Rate 18 Blood Pressure 134/83 131/80 Pulse Oximetry 94 Oxygen Delivery Method Oxygen Flow Rate 01/01/23 18:35 01/01/23 18:41 01/01/23 18:41 Pulse Rate 111 H 111 H Respiratory Rate 23 20 Blood Pressure 106/74 Pulse Oximetry 93 93 Oxygen Delivery Method Nasal Cannula Oxygen Flow Rate 1 MDM - Chest Pain Lab Data 01/01/23 09:35 01/01/23 09:35 Labs: Lab Results 01/01/23 01/01/23 01/01/23 Range/Units 09:35 09:35 09:35 WBC 12.4 H (4.5-11.0) X10^3/uL RBC 4.02 L (4.5-5.9) X10^6/uL Hgb 10.5 L (13.5-17.5) g/dL Hct 32.4 L (41-53) % MCV 80.7 (80-100) fL MCH 26.2 (26-34) PG MCHC 32.4 (30-36) % RDW 19.5 H (11.6-14.8) % Plt Count 451 H (150-400) X10^3/uL Neut % (Auto) 82.3 H (50-75) % Lymph % (Auto) 11.1 L (25-40) % Whitley % (Auto) 5.1 (3-14) % Eos % (Auto) 1.0 L (2-4) % Baso % (Auto) 0.5 (0-2) % Neut # (Auto) 13787 H (4828-0929) /uL Lymph # (Auto) 1400 (5014-9566) /uL Whitley # (Auto) 600 (0-900) /uL Eos # (Auto) 100 (0-450) /uL Baso # (Auto) 100 (0-100) /uL PT 11.7 (10.1-12.7) SECONDS INR 1.0 (0.9-1.3) APTT 33 (26-36) SECONDS D-Dimer (<500) ng/ml Sodium 144 (137-145) mmol/L Potassium 3.9 (3.4-5.1) mmol/L Chloride 108 H (98-107) mmol/L Carbon Dioxide 23 (22-32) mmol/L BUN 30 H (9-20) mg/dL Creatinine 1.50 H (0.66-1.25) mg/dL Estimated GFR 49 L (>60) mL/min BUN/Creatinine Ratio 20.0 (6-22) Glucose 166 H (80-110) mg/dL Calcium 9.3 (8.4-10.2) mg/dL Magnesium 1.8 (1.6-2.3) mg/dL Total Bilirubin 0.2 (0.2-1.3) mg/dL AST 17 (17-59) IU/L ALT 15 (<50) IU/L Alkaline Phosphatase 117 (38-126) U/L Total Creatine Kinase 73 (55-170) U/L CK-MB (CK-2) TNP CK-MB (CK-2) Rel Index TNP Troponin I 0.045 H (0.01-0.034) ng/mL Total Protein 8.2 (6.3-8.2) g/dL Albumin 4.3 (3.5-5.0) g/dL Globulin 3.9 (1.7-4.1) g/dL Albumin/Globulin Ratio 1.1 (1.0-2.8) Lipase 68 (23-300) U/L SARS-CoV-2 (PCR) (Negative) 01/01/23 01/01/23 01/01/23 Range/Units 09:35 11:35 16:30 WBC (4.5-11.0) X10^3/uL RBC (4.5-5.9) X10^6/uL Hgb (13.5-17.5) g/dL Hct (41-53) % MCV (80-100) fL MCH (26-34) PG MCHC (30-36) % RDW (11.6-14.8) % Plt Count (150-400) X10^3/uL Neut % (Auto) (50-75) % Lymph % (Auto) (25-40) % Whitley % (Auto) (3-14) % Eos % (Auto) (2-4) % Baso % (Auto) (0-2) % Neut # (Auto) (7512-0899) /uL Lymph # (Auto) (0891-3628) /uL Whitley # (Auto) (0-900) /uL Eos # (Auto) (0-450) /uL Baso # (Auto) (0-100) /uL PT (10.1-12.7) SECONDS INR (0.9-1.3) APTT (26-36) SECONDS D-Dimer 1357 H (<500) ng/ml Sodium (137-145) mmol/L Potassium (3.4-5.1) mmol/L Chloride (98-107) mmol/L Carbon Dioxide (22-32) mmol/L BUN (9-20) mg/dL Creatinine (0.66-1.25) mg/dL Estimated GFR (>60) mL/min BUN/Creatinine Ratio (6-22) Glucose (80-110) mg/dL Calcium (8.4-10.2) mg/dL Magnesium (1.6-2.3) mg/dL Total Bilirubin (0.2-1.3) mg/dL AST (17-59) IU/L ALT (<50) IU/L Alkaline Phosphatase (38-126) U/L Total Creatine Kinase 68 (55-170) U/L CK-MB (CK-2) TNP CK-MB (CK-2) Rel Index TNP Troponin I 0.044 H (0.01-0.034) ng/mL Total Protein (6.3-8.2) g/dL Albumin (3.5-5.0) g/dL Globulin (1.7-4.1) g/dL Albumin/Globulin Ratio (1.0-2.8) Lipase (23-300) U/L SARS-CoV-2 (PCR) Negative (Negative) MDM Narrative Medical decision making narrative: CC: 72-year-old male with chest pain Complicating co-morbidities: Age, hypertension, hyperlipidemia, diabetes Data collected from: Patient Medical records reviewed: Prior notes reviewed in our EMR Differential considered, but not limited to: Cardiac ischemia versus pulmonary embolism versus other Exam documented above, pertinent findings include: Heart rate slightly tachycardic, no reproducible pain, lungs clear Lab Test results independently reviewed as above. Pertinent findings: Subtle elevation in white blood cells, no true left shift, no significant anemia though there is a slight drop from prior H&H in 2020, D-dimer 1357, electrolytes that baseline, creatinine slightly elevated at 1.50 though this is essentially at baseline for him, troponin x2 slightly indeterminate at 0.045 and 0.044 respectively Independently reviewed EKG as above Imaging studies independently reviewed: Chest x-ray with no acute finding, CT angiogram notes no acute PE, stable chronic elevation of right hemidiaphragm and comments that a known nodular subpleural lesion at the left lung base has minimally increased compared to prior study, recommend consideration of further evaluation with PET-CT or biopsy Consultations: discussed with hospitalist (Dr. Muir - no access to stress test, cannot keep here). Call to [facility]. Given no EKG change or troponin release patient is appropriate for hospitalist Critical Care Time Critical Care Time Critical Care Time: Yes Total Critical Care Time: 45 Attestation: The high probability of a clinically significant, sudden or life threatening deterioration of the [CV] system(s) required my full and direct attention, intervention and personal management. The aggregate critical care time was [45] minutes. This time is in addition to time spent performing reported procedures but includes the following: [x Data Review and interpretation [x] Patient assessment and monitoring of vital signs [x] Documentation [x] Medication orders and management Discharge Plan Departure Patient Disposition: [facility] Clinical Impression: Unstable angina Prescriptions: No Action (DME) blood-glucose meter Misc See Rx Instructions .ROUTE .MEDSUPPLY Qty: 1 0RF Rx Instructions: use to test blood sugar daily as directed Chondroitin Sulfate 250 MG capsule 1 mg PO DAILY Qty: 0 Patient Comments: unknown dose omega 4-ocq-rlw-fish oil [Fish Oil] 1,000 MG capsule 1 cap PO BID Qty: 0 glucosamine sulfate [Cidatrine (glucosamine)] 500 MG tablet 1,500 mg PO QDAY Qty: 0 amlodipine 10 mg tablet 10 mg PO QDAY Qty: 90 3RF metformin 1,000 mg tablet 1,000 mg PO BID Qty: 180 3RF atorvastatin 40 mg tablet 20 mg PO DAILY Qty: 90 1RF (DME) lancets [TRUEplus Lancets] 30 gauge misc See Rx Instructions .Route Qty: 100 8RF Rx Instructions: Use to check BS once daily. (DME) Blood Glucose Test Strip See Rx Instructions .ROUTE .MEDSUPPLY Qty: 100 8RF Rx Instructions: Use to test blood sugar once daily cholecalciferol (vitamin D3) [Vitamin D3] 50 mcg (2,000 unit) capsule 50 mcg PO QDAY PRNQty: 0 Rx Instructions: Used PRN during Winter/Darker seasons. valsartan-hydrochlorothiazide 160-12.5 mg tablet 1 tab PO DAILY Qty: 90 3RF glipizide 5 mg tablet 5 mg PO QPM Qty: 90 3RF Ozempic 0.25 mg or 0.5 mg(2 mg/1.5 mL) pen injector 0.5 mg SUBCUT QWEEK Qty: 6 4RF Referrals: Yury Owen MD [Primary Care Provider] -
[2023-01-01] MEDS: NITROGLYCERIN 0.4 MG SL TAB SL (09:43)
[2023-01-01 09:48] LABS: Add Manual Diff / Slide Review NO; Basophils Absolute Auto 100 /uL (0-100); Basophils Percent Auto 0.5 % (0-2); Eosinophils Absolute Auto 100 /uL (0-450); Hematocrit 32.4 % (41-53); Hemoglobin 10.5 g/dL (13.5-17.5); Lymphocytes Absolute Auto 1400 /uL (1100-4500); Lymphocytes Percent Auto 11.1 % (25-40); Mean Corpuscular HGB Conc 32.4 % (30-36); Mean Corpuscular Hemoglobin 26.2 PG (26-34); Mean Corpuscular Volume 80.7 fL (80-100); Monocytes Absolute Auto 600 /uL (0-900); Monocytes Percent Auto 5.1 % (3-14); Neutrophils Absolute Auto 10200 /uL (1500-7000); Neutrophils Percent Auto 82.3 % (50-75); Platelet Count 451 X10^3/uL (150-400); Red Blood Cell Count 4.02 X10^6/uL (4.5-5.9); Red Cell Distribution Width 19.5 % (11.6-14.8); White Blood Cell Count 12.4 X10^3/uL (4.5-11.0)
--- NOTE | 2023-01-01 09:51 | PC.NURSE ---
Pt's CP is now a 2/10 after nitro x 1. BP dropped to 110/68. Dr. Moreno informed. Holding additional nitro d/t BP drop
[2023-01-01 09:52] LABS: Prothrombin Time 11.7 SECONDS (10.1-12.7)
[2023-01-01 09:55] LABS: PTT Partial Thromboplastin Tim 33 SECONDS (26-36)
[2023-01-01 09:57] LABS: Alanine Aminotransferase 15 IU/L (<50); Albumin 4.3 g/dL (3.5-5.0); Albumin Globulin Ratio 1.1 (1.0-2.8); Alkaline Phosphatase 117 U/L (38-126); Aspartate Aminotransferase 17 IU/L (17-59); Bilirubin Total 0.2 mg/dL (0.2-1.3); Blood Urea Nitrogen 30 mg/dL (9-20); Calcium 9.3 mg/dL (8.4-10.2); Carbon Dioxide 23 mmol/L (22-32); Chloride 108 mmol/L (98-107); Creatine Kinase 73 U/L (55-170); Estimated Glomerular Filt Rate 49 mL/min (>60); Globulin 3.9 g/dL (1.7-4.1); Glucose 166 mg/dL (80-110); HEMOLYSIS < 15 (0-50); Lipase 68 U/L (23-300); Magnesium 1.8 mg/dL (1.6-2.3); Potassium 3.9 mmol/L (3.4-5.1); Sodium 144 mmol/L (137-145); Total Protein 8.2 g/dL (6.3-8.2)
[2023-01-01 10:02] LABS: D Dimer 1357 ng/ml (<500)
[2023-01-01 10:08] LABS: Troponin I 0.045 ng/mL (0.01-0.034)
--- NOTE | 2023-01-01 10:13 | DI.CT.S_ITS ---
PROCEDURE: CT ANGIO CHEST PE PROTOCOL INDICATIONS: chest pain, SOB, tachy, DDimer well above cutoff TECHNIQUE: After the administration of intravenous contrast, 2 mm thick sections acquired from the pulmonary apices to the posterior costophrenic angles. 3-dimensional maximum intensity projection (MIP) coronal and sagittal reformats were then acquired through the thorax. For radiation dose reduction, the following was used: automated exposure control, adjustment of mA and/or kV according to patient size. COMPARISON: [facility], CT, CT CHEST WO CON, 07/01/2020, 13:19. [facility], CR, XR CHEST 1V, 01/01/2023, 9:33. FINDINGS: Image quality: Excellent. Pulmonary arteries: Pulmonary arteries are normal in size, and demonstrate no intraluminal filling defects to suggest central pulmonary embolism. Lungs and pleura: Chronic elevation of the right hemidiaphragm with atelectasis of the adjacent right middle and lower lobes. Nodular opacity at the extreme posteromedial left lung base measures 2.8 x 2.1 cm (105/51, compared to 2.4 x 1[address] from 07/01/2020 when remeasured in a similar manner. No pleural effusions or pneumothorax. Bronchial wall thickening again seen in the bilateral lower lobes. Mediastinum: Heart size is moderately enlarged, without pericardial effusion. Moderate coronary artery calcifications. No mediastinal or hilar adenopathy. Thoracic aorta is normal in caliber and enhancement. Esophagus is normal in caliber, without hiatal hernia. Bones and chest wall: No suspicious bony lesions. Ribs and thoracic spine appear intact throughout. Thyroid is unremarkable. No axillary or supraclavicular adenopathy. Abdomen: Postsurgical changes are seen in the stomach. Visualized upper abdominal solid organs appear normal in the early arterial phase of enhancement. IMPRESSION: 1. No acute pulmonary embolus. 2. Stable chronic elevation of the right hemidiaphragm with atelectasis of the adjacent right lung. 3. Nodular subpleural lesion at the extreme left lung base has mildly increased in size when compared to the prior CT from 07/01/2020. Consider further evaluation with PET-CT or percutaneous biopsy versus continued imaging follow-up. 4. Moderate cardiomegaly. Approved by: Musa Schneider M.D. on 01/01/2023 at 11:24
[2023-01-01 11:53] LABS: Creatine Kinase 68 U/L (55-170)
[2023-01-01 12:05] LABS: Troponin I 0.044 ng/mL (0.01-0.034)
--- NOTE | 2023-01-01 14:05 | PC.NURSE ---
Pt reports increasing chest pain. Dr Moreno updated.
[2023-01-01] MEDS: NITROGLYCERIN OINT 1 INCH/GM OINT...G. 2 INCH TOP (14:11)
[2023-01-01 17:00] LABS: COVID19 -Nasal RAPID Negative (Negative)
== END 2023-01-01 20:15 | disposition short-term general hospital (02) ==
PROVIDERS: Emergency Provider Emergency Medicine; Family Provider Family Medicine; PCP Internal Medicine
DX: I20.0 Unstable angina (principal); I10 Essential (primary) hypertension; R79.89 Other specified abnormal findings of blood chemistry; R74.8 Abnormal levels of other serum enzymes; R79.1 Abnormal coagulation profile; Z20.822 Contact with and (suspected) exposure to COVID-19
CPT/HCPCS: 36415; 71045; 71275; 80053; 82550; 83690; 83735; 84484; 85025; 85379; 85610; 85730; 87635; 93005; 93010; 99285; 99291; C9803; Q9967

== ENCOUNTER → 2023-01-11 15:22 | Outpatient (CLI) | payer MEDICARE, OTHER, SELFPAY ==
--- NOTE | 2023-01-11 | DI.RAD.S_ITS ---
PROCEDURE: XR TOE LT MIN 2V INDICATIONS: BROKEN TOE TECHNIQUE: 3 views of the 1st toe(s) acquired. COMPARISON: [facility], , XR FOOT LT MIN 3V, 11/09/2022, 12:44. FINDINGS: Bones: There is interval further healing at patient's known 1st distal phalangeal base fracture site with increased sclerosis. No new fracture or dislocation. Osteoarthritic changes are noted throughout midfoot and forefoot. Soft tissues: No suspicious soft tissue densities. IMPRESSION: Interval further healing at 1st distal phalangeal base fracture site. Great toe osteoarthritis. No new fracture or dislocation. Dictated by: George Lantigua M.D. on 01/11/2023 at 16:09 Approved by: George Lantigua M.D. on 01/11/2023 at 16:10
== END ==
PROVIDERS: Family Provider Family Medicine; PCP Internal Medicine; Referring Provider Podiatrist Foot & Ankle Surgery; Visit Provider Podiatrist Foot & Ankle Surgery
DX: S92.422D Displaced fracture of distal phalanx of left great toe, subsequent encounter for fracture with routine healing (principal); M19.072 Primary osteoarthritis, left ankle and foot; X58.XXXD Exposure to other specified factors, subsequent encounter
CPT/HCPCS: 73660

== ENCOUNTER 2023-01-14 20:26 | Inpatient (IN) | payer MEDICARE, OTHER, SELFPAY ==
[2023-01-14] VITALS (7 sets, daily range): BP systolic 117–134; BP diastolic 64–78; PULSE 88–97; RESP 20–30; TEMP 36.9; O2SAT 91–95; BMI 29.8
[2023-01-14 20:46] LABS: INR 1.2 (0.9-1.3); Prothrombin Time 13.2 SECONDS (10.1-12.7)
[2023-01-14 20:49] LABS: PTT Partial Thromboplastin Tim 29 SECONDS (26-36)
[2023-01-14 20:54] LABS: Alanine Aminotransferase 16 IU/L (<50); Albumin 3.5 g/dL (3.5-5.0); Albumin Globulin Ratio 0.9 (1.0-2.8); Alkaline Phosphatase 103 U/L (38-126); Aspartate Aminotransferase 19 IU/L (17-59); BUN Creatinine Ratio 17.6 (6-22); Bilirubin Total 0.3 mg/dL (0.2-1.3); Blood Urea Nitrogen 31 mg/dL (9-20); Calcium 8.6 mg/dL (8.4-10.2); Carbon Dioxide 23 mmol/L (22-32); Chloride 105 mmol/L (98-107); Estimated Glomerular Filt Rate 41 mL/min (>60); Globulin 3.9 g/dL (1.7-4.1); Glucose 173 mg/dL (80-110); HEMOLYSIS < 15 (0-50); Potassium 4.2 mmol/L (3.4-5.1); Sodium 140 mmol/L (137-145); Total Protein 7.4 g/dL (6.3-8.2)
[2023-01-14 20:57] LABS: Add Manual Diff / Slide Review NO; Basophils Absolute Auto 100 /uL (0-100); Basophils Percent Auto 0.4 % (0-2); Eosinophils Absolute Auto 100 /uL (0-450); Eosinophils Percent Auto 0.9 % (2-4); Hematocrit 27.7 % (41-53); Lymphocytes Absolute Auto 1500 /uL (1100-4500); Lymphocytes Percent Auto 10.4 % (25-40); Mean Corpuscular HGB Conc 32.6 % (30-36); Mean Corpuscular Hemoglobin 26.2 PG (26-34); Mean Corpuscular Volume 80.4 fL (80-100); Monocytes Absolute Auto 1100 /uL (0-900); Monocytes Percent Auto 7.4 % (3-14); Neutrophils Absolute Auto 11600 /uL (1500-7000); Neutrophils Percent Auto 80.9 % (50-75); Platelet Count 505 X10^3/uL (150-400); Red Blood Cell Count 3.44 X10^6/uL (4.5-5.9); Red Cell Distribution Width 18.2 % (11.6-14.8); White Blood Cell Count 14.4 X10^3/uL (4.5-11.0)
[2023-01-14] MEDS: PANTOPRAZOLE 40 MG VIAL 80 MG IV (21:20)
--- NOTE | 2023-01-14 21:57 | ED.GIBLEED ---
HPI - GI Bleed General Chief complaint: GI Bleed Stated complaint: diarhea- gi bleed? Time Seen by Provider: 01/14/23 20:43 Source: patient and EMS Mode of arrival: EMS History of Present Illness HPI Narrative: Patient is 72 year old male recent history of STEMI at [facility] had a stent placed placed on efficient and aspirin presents today with near syncope and rectal bleeding. He reports that he started bleeding around noon EMS reports that he was orthostatic with an initial blood pressure with a systolic of 98 and tachycardic which improved with IV fluids. He is now stable. He reports that he has had GI bleeding 15 years ago secondary to NSAIDs was told not to take any so he has not however now bleeding. Denies any chest pain or shortness of breath no abdominal pain or weakness. Feeling better than he had previously. Related Data Home Medications Medication Instructions Recorded Confirmed chondroitin sulfate A 250 mg 1 mg PO DAILY ##0 09/07/17 01/15/23 capsule (Chondroitin Sulfate) glucosamine sulfate 500 mg tablet 750 mg PO QDAY ##0 09/07/17 01/15/23 (Cidatrine (glucosamine)) aspirin 81 mg tablet,delayed 81 mg PO DAILY 01/15/23 01/15/23 release atorvastatin 40 mg tablet 80 mg PO DAILY 01/15/23 01/15/23 ferrous sulfate 325 mg (65 mg 325 mg PO DAILY 01/15/23 01/15/23 iron) tablet metoprolol succinate 50 mg 50 mg PO DAILY 01/15/23 01/15/23 tablet,extended release 24 hr pantoprazole 40 mg tablet,delayed 40 mg PO DAILY 01/15/23 01/15/23 release prasugrel 10 mg tablet 10 mg PO DAILY 01/15/23 01/15/23 valsartan 80 mg tablet 80 mg PO DAILY 01/15/23 01/15/23 Previous Rx's Medication Instructions Recorded blood-glucose meter #1 ea 05/23/20 amlodipine 10 mg tablet 10 mg PO QDAY #90 tabs 12/25/21 glipizide 5 mg tablet 5 mg PO QPM #90 tabs 05/18/22 blood sugar diagnostic (Blood #100 ea 10/27/22 Glucose Test strips) lancets 30 gauge (TRUEplus Lancets) #100 ea 10/27/22 semaglutide 0.25 mg or 0.5 mg (2 0.5 mg (0.4 mL) SUBCUT QWEEK #6 mL 12/28/22 mg/1.5 mL) subcutaneous pen injector (OzempSeoPult) Allergies Allergy/AdvReac Type Severity Reaction Status Date / Time NSAIDS (Non-Steroidal AdvReac Intermediate GI bleed Verified 01/14/23 21:08 Anti-Inflamma Review of Systems Review of Systems ROS Unobtainable: All systems reviewed & are unremarkable except as noted in HPI and below Patient History Medical History Anemia (2010) Chronic renal failure, stage 3a Colon polyps (2010) Coronary artery disease (~12/2022) Diabetes mellitus (1998) Diabetic neuropathy Diverticular disease (2010) Essential hypertension (08/17/17) GERD (gastroesophageal reflux disease) (2008) GI bleeding (2010) Gout (2008) Hypogonadism in male Ischemic cardiomyopathy (~12/2022) Kidney stone on right side Obesity (BMI 30.0-34.9) Type 2 diabetes mellitus Uncontrolled type 2 diabetes mellitus Surgical History Anesthesia S/P coronary artery stent placement (01/02/23) Status post laparoscopy (2004) Family History Father Hypertension Alzheimer's disease Cancer Grandfather Heart disease Grandmother No problems noted. Mother Cancer Grandfather Heart disease Grandmother Diabetes mellitus Social History marital status: unmarried,single household members: none Smoking Status: Former smoker alcohol intake: former substance use type: marijuana Smoking Status: Former smoker alcohol intake frequency: a few times a month Substance Use Type: marijuana Exam Initial Vital Signs Initial Vital Signs: Vital Signs Temperature 98.4 F 01/14/23 20:30 Pulse Rate 97 H 01/14/23 20:30 Respiratory Rate 20 01/14/23 20:30 Blood Pressure 130/64 01/14/23 20:30 Pulse Oximetry 95 01/14/23 20:30 Oxygen Delivery Method Room Air 01/14/23 20:30 GENERAL: Alert pleasant 72-year-old male slightly pale and in [no acute] distress. HEENT: Head atraumatic,EOMI, pupils reactive, face symmetric, [moist] mucous membranes CARDIOVASCULAR: Regular rate and rhythm without murmurs, rubs or gallops. RESPIRATORY: Breath sounds equal bilaterally, no wheezes rales or rhonchi. ABDOMEN: Soft, nontender. Normoactive bowel sounds all 4 quadrants. No guarding or rebound. RECTAL: Grossly positive maroon EXTREMITIES: Normal range of motion, no clubbing or edema. Neurovascularly intact NEUROLOGICAL: Alert and oriented x4. SKIN: Warm, dry, no laceration, no petechiae, no rashes or lesions. Course Orders Ordered: ED Orders 01/14/23 20:10 Complete Blood Count AUTO DIFF Stat Comprehensive Metabolic Panel Stat PTT Partial Thromboplastin Willie Stat Prothrombin Time INR Stat 01/14/23 20:35 EKG-12 Lead Stat 01/14/23 20:57 Type and Screen Stat 01/14/23 22:55 Hemoglobin and Hematocrit Stat 01/14/23 23:18 EKG-12 Lead Stat Ondansetron HCl (Ondansetron 4 Mg/2 Ml Inj) 4 mg IV NOW PRN PRN Reason: Nausea And Vomiting Ondansetron HCl (Ondansetron 4 Mg Odt) 4 mg SL NOW PRN PRN Reason: Nausea And Vomiting Sodium Chloride (Sodium Chloride 0.9% Flush) 10 ml IV PRN PRN PRN Reason: Flush Last Admin: 01/15/23 03:42 Dose: 10 ml Documented By: GIBSON Sodium Chloride (Sodium Chloride 0.9% Flush) 10 ml IV BID TEE Discontinued Medications Pantoprazole Sodium (Pantoprazole 40 Mg Vial) 80 mg IV NOW ONE Stop: 01/14/23 20:36 Last Admin: 01/14/23 21:20 Dose: 80 mg Documented By: ADRY Vital Signs Vital signs: Vital Signs - 8 hr 01/14/23 21:00 01/14/23 21:30 01/14/23 22:00 Pulse Rate 92 H 94 H 92 H Respiratory Rate 24 30 H 25 H Blood Pressure 124/71 126/73 117/69 Pulse Oximetry 93 92 92 Oxygen Delivery Method Room Air Room Air Room Air 01/14/23 22:30 01/14/23 23:00 Pulse Rate 95 H 93 H Respiratory Rate 22 20 Blood Pressure 124/66 134/78 Pulse Oximetry 91 93 Oxygen Delivery Method Room Air MDM - GI Bleed Lab Data 01/14/23 22:55 01/14/23 20:10 Labs: Lab Results 01/14/23 01/14/23 01/14/23 Range/Units 20:10 20:10 20:10 WBC 14.4 H (4.5-11.0) X10^3/uL RBC 3.44 L (4.5-5.9) X10^6/uL Hgb 9.0 L (13.5-17.5) g/dL Hct 27.7 L (41-53) % MCV 80.4 (80-100) fL MCH 26.2 (26-34) PG MCHC 32.6 (30-36) % RDW 18.2 H (11.6-14.8) % Plt Count 505 H (150-400) X10^3/uL Neut % (Auto) 80.9 H (50-75) % Lymph % (Auto) 10.4 L (25-40) % [place] % (Auto) 7.4 (3-14) % Eos % (Auto) 0.9 L (2-4) % Baso % (Auto) 0.4 (0-2) % Neut # (Auto) 61343 H (8132-0041) /uL Lymph # (Auto) 1500 (6956-6271) /uL [place] # (Auto) 1100 H (0-900) /uL Eos # (Auto) 100 (0-450) /uL Baso # (Auto) 100 (0-100) /uL PT 13.2 H (10.1-12.7) SECONDS INR 1.2 (0.9-1.3) APTT 29 (26-36) SECONDS Sodium 140 (137-145) mmol/L Potassium 4.2 (3.4-5.1) mmol/L Chloride 105 (98-107) mmol/L Carbon Dioxide 23 (22-32) mmol/L BUN 31 H (9-20) mg/dL Creatinine 1.76 H (0.66-1.25) mg/dL Estimated GFR 41 L (>60) mL/min BUN/Creatinine Ratio 17.6 (6-22) Glucose 173 H (80-110) mg/dL Calcium 8.6 (8.4-10.2) mg/dL Total Bilirubin 0.3 (0.2-1.3) mg/dL AST 19 (17-59) IU/L ALT 16 (<50) IU/L Alkaline Phosphatase 103 (38-126) U/L Total Protein 7.4 (6.3-8.2) g/dL Albumin 3.5 (3.5-5.0) g/dL Globulin 3.9 (1.7-4.1) g/dL Albumin/Globulin Ratio 0.9 L (1.0-2.8) Blood Type Antibody Screen Crossmatch 01/14/23 01/14/23 Range/Units 20:57 22:55 WBC (4.5-11.0) X10^3/uL RBC (4.5-5.9) X10^6/uL Hgb 8.3 L (13.5-17.5) g/dL Hct 25.6 L (41-53) % MCV (80-100) fL MCH (26-34) PG MCHC (30-36) % RDW (11.6-14.8) % Plt Count (150-400) X10^3/uL Neut % (Auto) (50-75) % Lymph % (Auto) (25-40) % [place] % (Auto) (3-14) % Eos % (Auto) (2-4) % Baso % (Auto) (0-2) % Neut # (Auto) (6127-7339) /uL Lymph # (Auto) (8538-2072) /uL [place] # (Auto) (0-900) /uL Eos # (Auto) (0-450) /uL Baso # (Auto) (0-100) /uL PT (10.1-12.7) SECONDS INR (0.9-1.3) APTT (26-36) SECONDS Sodium (137-145) mmol/L Potassium (3.4-5.1) mmol/L Chloride (98-107) mmol/L Carbon Dioxide (22-32) mmol/L BUN (9-20) mg/dL Creatinine (0.66-1.25) mg/dL Estimated GFR (>60) mL/min BUN/Creatinine Ratio (6-22) Glucose (80-110) mg/dL Calcium (8.4-10.2) mg/dL Total Bilirubin (0.2-1.3) mg/dL AST (17-59) IU/L ALT (<50) IU/L Alkaline Phosphatase (38-126) U/L Total Protein (6.3-8.2) g/dL Albumin (3.5-5.0) g/dL Globulin (1.7-4.1) g/dL Albumin/Globulin Ratio (1.0-2.8) Blood Type O Positive Antibody Screen Negative Crossmatch See Detail Point of Care Testing Stool Occult Blood Positive Glucose POC 184 ECG Data Interpretation: Sinus rhythm rate 93 NJ interval 216 QRS 80 QTC 450 T-wave inversions noted lead [address] changes or T-wave inversions previous EKG from January 01 did not show significant T-wave inversions. MDM Narrative Medical decision making narrative: Patient 72-year-old male with recent STEMI placed on aspirin and if she and presenting today with rectal bleeding. He is anemic hemoglobin 9.0 decreases to 8.3 with hematocrit 27.7 decrease to 25.6. He was presyncopal. For EMS. He continues to have rectal bleeding here in the ED. he is given 80 mg of Protonix and 1 unit of blood. Troponin is indeterminate trending downward. EKG shows T-wave inversion not actively having chest pain. Abdomen is soft pain not out of proportion no need for imaging time. Dr. Ledbetter, on-call surgery updated patient's symptoms test results and agrees that patient can stay here and be closely monitored. Dr. Early, cardiology at [facility] updated on patient's symptoms test results reports that patient must stay on antiplatelet medication due to recent stent placement. He actually was supposed to follow-up with patient tomorrow. He understands that patient will be staying here at the hospital. Dr. Chisholm, accepts patient Discharge Plan Departure Patient Disposition: Admitted As Inpatient Clinical Impression: GI bleed due to NSAIDs Admit Date/Time: 01/14/23 23:26 Admit Provider: Nomi Chisholm
[2023-01-14 23:06] LABS: Hematocrit 25.6 % (41-53); Hemoglobin 8.3 g/dL (13.5-17.5)
[2023-01-15] VITALS (10 sets, daily range): BP systolic 120–147; BP diastolic 60–81; PULSE 78–100; RESP 16–20; TEMP 36.1–36.8; O2SAT 93–98; BMI 29.9
[2023-01-15 00:03] LABS: Creatine Kinase 75 U/L (55-170)
[2023-01-15 00:16] LABS: Troponin I 0.104 ng/mL (0.01-0.034)
--- NOTE | 2023-01-15 00:36 | PC.NURSE ---
2315: Pt reported 2/10 L upper chest pain. Pt denies SOB or palpitations. Pt states that it feels like a muscle spasm. Vital signs stable.
--- NOTE | 2023-01-15 02:28 | PC.NURSE ---
0032 Pt. admitted to room 225. Oriented to his room, showed how to use his call light, TV & bed controls. Denied any fall for the past 3 months, but reported had a near syncopal episode earlier. Encouraged not to get up OOB without any assistance, call light with in reached. 1st unit of blood initiated @ 0040 & still transfusing @ this time. No bloody stool noted since admission to the floor. Will cont. POC care & monitor.
[2023-01-15 02:35] LABS: Troponin I 0.099 ng/mL (0.01-0.034)
--- NOTE | 2023-01-15 03:25 | PC.NURSE ---
1 unit transfused tolerated transfusion no signs or symptoms noted. Will cont. POC and monitor.
[2023-01-15] MEDS: SODIUM CHLORIDE 0.9% FLUSH 10 ML IV ×3 (03:42→20:22)
--- NOTE | 2023-01-15 07:04 | PM.HP.1 ---
History of Present Illness History of Present Illness Date Patient Seen: 01/15/23 Time Patient Seen: 06:55 Chief complaint: diarrhea- gi bleed? Narrative: 72-year-old male admitted via the emergency department for GI bleed Patient discharged from [facility] in [place] after presentation with an ST-elevation NJ and had drug-eluting stent placement into his right coronary artery. Discharge day was 01/03/2023. Also found to have an ischemic cardiomyopathy with left ventricular ejection fraction of about 40% and 2 additional coronary lesions that were felt to be amenable to further therapies once stabilized after above stent placement. Patient apparently started passing cranberry juice colored material via rectum beginning about noon on day of admission. He reported being somewhat hypotensive and tachycardic when evaluated by EMS. He improved rapidly with some IV fluids in the emergency department. Had 1 smaller bowel movement in the emergency department and has had no bowel movements since. No abdominal pain or discomfort. Very similar to what he experienced previously with episodic bleeding much like this when using more NSAIDs. In the past there was no definitive diagnosis for a source of bleeding, his manager salt at the time in [place] felt it was not a single spot of bleeding but more diffuse bleeding secondary to the use of the NSAIDs and since he stops using any NSAIDs has had no further bleeding. He however never had any endoscopy or evaluation performed during an actual episode since it always stopped and started fairly randomly, in the past. On ER evaluation he was found to be modestly anemic (patient's hemoglobin was 9.2 hematocrit 29.4 upon discharge from [facility] on 01/03/2023). Cardiology was consulted who felt strongly patient needs to continue on antiplatelet therapy given his recent stent placement he would be at super high risk if this was discontinued. General surgery was consulted here it felt like patient could remain at [facility] for evaluation. He is therefore admitted to my service Patient denies any chest pain or any symptoms similar to what he presented with with his NJ. does have a distant history of apparently GI bleed, or least iron deficiency anemia. This would be in about 2012 or so. Per previous records had upper and lower endoscopy at that time including capsule endoscopy that failed to find an etiology for his anemia. He is status post sleeve gastrectomy was felt perhaps that was a contributing factor. Also patient maybe could be having diverticular bleed off and on with evidence of prior lower GI bleeding. Patient is overdue for colonoscopy at this time it appears (and patient confirms). [facility] Medical History Anemia (2010) Chronic renal failure, stage 3a Colon polyps (2010) Coronary artery disease (~12/2022) Diabetes mellitus (1998) Diabetic neuropathy Diverticular disease (2010) Essential hypertension (08/17/17) GERD (gastroesophageal reflux disease) (2008) GI bleeding (2010) Gout (2008) Hypogonadism in male Iron deficiency anemia Ischemic cardiomyopathy (~12/2022) Kidney stone on right side Obesity (BMI 30.0-34.9) Type 2 diabetes mellitus Uncontrolled type 2 diabetes mellitus Surgical History Anesthesia S/P coronary artery stent placement (01/02/23) Status post laparoscopy (2004) Family History Father Hypertension Alzheimer's disease Cancer Grandfather Heart disease Grandmother No problems noted. Mother Cancer Grandfather Heart disease Grandmother Diabetes mellitus Social History marital status: unmarried,single household members: none Smoking Status: Former smoker alcohol intake: former substance use type: marijuana Meds Home Medications and Allergies Home Medications Medication Instructions Recorded Confirmed Type chondroitin sulfate A 250 mg 1 mg PO DAILY ##0 09/07/17 01/15/23 History capsule (Chondroitin Sulfate) glucosamine sulfate 500 mg tablet 750 mg PO QDAY ##0 09/07/17 01/15/23 History (Cidatrine (glucosamine)) blood-glucose meter #1 ea 05/23/20 01/15/23 Rx amlodipine 10 mg tablet 10 mg PO QDAY #90 tabs 12/25/21 01/15/23 Rx glipizide 5 mg tablet 5 mg PO QPM #90 tabs 05/18/22 01/15/23 Rx blood sugar diagnostic (Blood #100 ea 10/27/22 01/15/23 Rx Glucose Test strips) lancets 30 gauge (TRUEplus Lancets) #100 ea 10/27/22 01/15/23 Rx semaglutide 0.25 mg or 0.5 mg (2 0.5 mg (0.4 mL) SUBCUT QWEEK #6 mL 12/28/22 01/15/23 Rx mg/1.5 mL) subcutaneous pen injector (Ozempic) aspirin 81 mg tablet,delayed 81 mg PO DAILY 01/15/23 01/15/23 History release atorvastatin 40 mg tablet 80 mg PO DAILY 01/15/23 01/15/23 History ferrous sulfate 325 mg (65 mg 325 mg PO DAILY 01/15/23 01/15/23 History iron) tablet metoprolol succinate 50 mg 50 mg PO DAILY 01/15/23 01/15/23 History tablet,extended release 24 hr pantoprazole 40 mg tablet,delayed 40 mg PO DAILY 01/15/23 01/15/23 History release prasugrel 10 mg tablet 10 mg PO DAILY 01/15/23 01/15/23 History valsartan 80 mg tablet 80 mg PO DAILY 01/15/23 01/15/23 History Allergies Allergy/AdvReac Type Severity Reaction Status Date / Time NSAIDS (Non-Steroidal AdvReac Intermediate GI bleed Verified 01/14/23 21:08 Anti-Inflamma Review of Systems Review of Systems ROS: Yes All systems reviewed with the patient and are negative except as otherwise documented Exam Vital Signs (past 8 hours): - 01/14/23 23:30 01/15/23 00:00 01/15/23 00:32 Temperature 97.2 F L Pulse Rate 88 100 H 92 H Respiratory Rate 22 20 18 Blood Pressure 131/67 126/65 139/81 Pulse Oximetry 94 93 97 Oxygen Delivery Method Room Air Room Air 01/15/23 00:43 01/15/23 00:55 01/15/23 03:22 Temperature 97.2 F L 97.6 F 98.1 F Pulse Rate 96 H 95 H 94 H Respiratory Rate 18 18 20 Blood Pressure 139/81 147/80 H 137/73 Pulse Oximetry Oxygen Delivery Method 01/15/23 06:12 Temperature 98.3 F Pulse Rate 95 H Respiratory Rate 18 Blood Pressure 123/81 Pulse Oximetry 94 Oxygen Delivery Method Oxygen Delivery Method Room Air Narrative Exam Narrative: Non acutely ill-appearing male sitting on the edge of the bed in his hospital room HEENT unremarkable Lungs-clear with good breath sounds Heart-regular rate and rhythm Abdomen-benign Neuro-alert orient x3 no focal findings Objective Labs 01/14/23 22:55 01/14/23 20:10 Labs: Laboratory Results - last 24 hr 01/14/23 01/14/23 01/14/23 20:10 20:10 20:10 WBC 14.4 H RBC 3.44 L Hgb 9.0 L Hct 27.7 L MCV 80.4 MCH 26.2 MCHC 32.6 RDW 18.2 H Plt Count 505 H Neut % (Auto) 80.9 H Lymph % (Auto) 10.4 L [place] % (Auto) 7.4 Eos % (Auto) 0.9 L Baso % (Auto) 0.4 Neut # (Auto) 19522 H Lymph # (Auto) 1500 [place] # (Auto) 1100 H Eos # (Auto) 100 Baso # (Auto) 100 PT 13.2 H INR 1.2 APTT 29 Sodium 140 Potassium 4.2 Chloride 105 Carbon Dioxide 23 BUN 31 H Creatinine 1.76 H Estimated GFR 41 L BUN/Creatinine Ratio 17.6 Glucose 173 H Calcium 8.6 Total Bilirubin 0.3 AST 19 ALT 16 Alkaline Phosphatase 103 Total Creatine Kinase CK-MB (CK-2) CK-MB (CK-2) Rel Index Troponin I Total Protein 7.4 Albumin 3.5 Globulin 3.9 Albumin/Globulin Ratio 0.9 L Blood Type Antibody Screen Crossmatch 01/14/23 01/14/23 01/14/23 20:57 22:55 23:48 WBC RBC Hgb 8.3 L Hct 25.6 L MCV MCH MCHC RDW Plt Count Neut % (Auto) Lymph % (Auto) [place] % (Auto) Eos % (Auto) Baso % (Auto) Neut # (Auto) Lymph # (Auto) [place] # (Auto) Eos # (Auto) Baso # (Auto) PT INR APTT Sodium Potassium Chloride Carbon Dioxide BUN Creatinine Estimated GFR BUN/Creatinine Ratio Glucose Calcium Total Bilirubin AST ALT Alkaline Phosphatase Total Creatine Kinase 75 CK-MB (CK-2) TNP CK-MB (CK-2) Rel Index TNP Troponin I 0.104 H Total Protein Albumin Globulin Albumin/Globulin Ratio Blood Type O Positive Antibody Screen Negative Crossmatch See Detail 01/15/23 01:30 WBC RBC Hgb Hct MCV MCH MCHC RDW Plt Count Neut % (Auto) Lymph % (Auto) [place] % (Auto) Eos % (Auto) Baso % (Auto) Neut # (Auto) Lymph # (Auto) [place] # (Auto) Eos # (Auto) Baso # (Auto) PT INR APTT Sodium Potassium Chloride Carbon Dioxide BUN Creatinine Estimated GFR BUN/Creatinine Ratio Glucose Calcium Total Bilirubin AST ALT Alkaline Phosphatase Total Creatine Kinase CK-MB (CK-2) CK-MB (CK-2) Rel Index Troponin I 0.099 H Total Protein Albumin Globulin Albumin/Globulin Ratio Blood Type Antibody Screen Crossmatch Assessment & Plan Assessment & Plan narrative: 1. GI bleed- sounds similar to a presentation back 10+ years ago with some occasional maroon or rectal bleeding. I guess prior to that he had presented with iron deficiency anemia and had full upper and lower endoscopy with capsule endoscopy as well the failed to define a GI source of blood loss, was felt to be due to NSAIDs therapy. Patient's certainly if at all possible needs to continue on antiplatelet therapy and so I think he needs repeat endoscopic evaluation for more serious lesion that would preclude him being able to continue on his antiplatelet therapy. 2. Status post recent placement drug-eluting stent right coronary artery-I agree patient would be at super high-risk if antiplatelet therapy was discontinued, especially in the first 3 months after placement of the stent. Hopefully we can continue that but deserves probably careful evaluation of his GI tract as above. Patient with multivessel disease and plan was for a staged approach to treating this without bypass surgery (minimally invasively). Therefore I think he would benefit from probably a higher hemoglobin hematocrit, my target would be a hemoglobin of greater than 8 and hematocrit greater than 25%, especially if we are going to allow some degree of bleeding because of his need to continue on antiplatelet therapy 3. Ischemic cardiomyopathy-patient most recently had echo demonstrating ejection fraction of 40% with severe basilar inferior lateral hypokinesis. This is secondary to his recent NJ it would appear. Continue to monitor carefully for evidence of volume/fluid overload 4. Diabetes-patient normally on Ozempic plus oral meds. Hold oral meds while NPO but resume when able to eat. Continue monitor his numbers and use insulin as necessary. 5. VTE prophylaxis-not a candidate for anticoagulation given his GI bleeding presentation. Continue with SCDs 6. Code status-patient appropriate for full code in the event of a sudden cardiac or respiratory arrest which is not at this point anticipated Quality VTE Deep Vein Thrombosis/Pulmonary Embolism Present on Admission: No
[2023-01-15 11:50] LABS: Hematocrit 25.8 % (41-53); Hemoglobin 8.7 g/dL (13.5-17.5)
[2023-01-15 12:04] LABS: BUN Creatinine Ratio 21.8 (6-22); Blood Urea Nitrogen 34 mg/dL (9-20); Calcium 8.4 mg/dL (8.4-10.2); Carbon Dioxide 25 mmol/L (22-32); Chloride 107 mmol/L (98-107); Estimated Glomerular Filt Rate 47 mL/min (>60); Glucose 102 mg/dL (80-110); HEMOLYSIS 18 (0-50); Sodium 140 mmol/L (137-145)
[2023-01-15] MEDS: PANTOPRAZOLE 40 MG VIAL IV ×2 (13:23→20:22)
[2023-01-15] MEDS: ASPIRIN EC 81 MG TABLET PO (13:24)
[2023-01-15] MEDS: METOPROLOL ER 50 MG TABLET PO (13:24)
[2023-01-15] MEDS: FERROUS SULFATE 325 MG TABLET PO (13:24)
--- NOTE | 2023-01-15 15:47 | CM.DANOTE ---
Addendum entered by MATT Porter 01/15/23 16:20: ADD: SW met bedside with pt and explained role and he confirms he lives alone in [place] and is active and independent with no DME for ambulation and still drives. Pt's sister lives a mile away and is supportive and can assist or transport home if needed but pt states he also has a couple neighbors who can help if needed too. Pt denies any hx of HH or SNF and preference is home and he remains NPO awaiting possible EGD this evening and pt is looking forward to eating and getting home. Per RN, no time for EGD yet and H&H remains low and potential need for another blood transfusion. BF Original Note: Patient is a 72 yo male who was admitted on 01/14/23 for Poss GI Bleed. Pt has M[place] and [place] for insurance and his PCP is Dr. Yury Owen. EMR was reviewed. Per , pt with recent discharge from [facility] after cardiac stent on 01/03/23 and now admitted for likely GI bleed and received blood transfusion. Pt has no other hx of admissions here at [facility]. SW attempted to meet bedside with pt for d/c assessment but pt sleeping hard and did not wake. Plan: SW to follow closely for another attempt at bedside assessment to determine any d/c planning needs and if pt safe for d/c home when medically stable. MATT Porter Discharge Planning/Care Management Advanced directive, confirm from FAMILY Start: 01/15/23 01:13 Freq: Q24H Status: Active Protocol: Document 01/15/23 01:13 MP (Rec: 01/15/23 02:34 MP [id number]) Advance Directive, confirm on record Time 01:13 Person contacted pt. Copy received No CM Discharge Assessment Start: 01/15/23 15:45 Freq: Status: Active Protocol: Document 01/15/23 15:45 BF (Rec: 01/15/23 15:47 BF [id number]) Discharge Planning Assessment Assigned Wet Milling Wheel Operator MATT Salas DPOA/Assigned Designee Name sister Betty Contact Information [phone] Advance Directives? Yes Advance Directives on File No History Provided By Patient,Medical Record Has Patient been admitted in last 30 No days? Prior Living Arrangements House Household Members none Type of transporation used prior to Drives own vehicle admit Independent with ADL's Yes Is patient alert and oriented? Yes Caregiver for Another No Barriers to Discharge No Discharge Plan Home Transportation Arrangement Likely family to transport at d/c Referrals Initiated None needed Additional Comment Pending progress Review Status In Process Please Provide Date Initial DC 01/15/23 Assessment Was Performed Next Review Type Continued Stay Review
--- NOTE | 2023-01-15 17:43 | PM.CN ---
History of Present Illness Consult details Date Patient Seen: 01/15/23 Time Patient Seen: 18:16 Chief complaint: diarrhea- gi bleed? Reason for consult: GI bleeding. Requesting provider: Yury Owen Narrative: 72-year-old male who presents to the emergency room with GI bleeding. He was feeling lightheaded and was found to have a hemoglobin level of 8.3 and did receive 1 unit of packed red blood cells with an increase to 8.7. He has remained hemodynamically stable. He states that he is having bloody bowel movements that are reddish color rather than dark brown. He suspects for this reason that it is lower GI but he attributes the bleeding to the use of NSAIDs. He says that he has had GI bleeds in the past. They were never able to localize the source. He had his last regular screening colonoscope 10 years ago and there were some polyps and he has no intention to stop screening for colon cancer, but is not up to date/due. He was recently hospitalized for a ST-elevation NE and had a drug-eluting stent placed into his right coronary artery he was discharged on 01/03/2023. He was advised after that hospitalization to commence a proton pump inhibitor but he decided that, because he had taken them in the past and did not prefer them, that he would not take that medication and therefore have not been on antacid. He denies epigastric abdominal pain, or any symptoms of reflux. Endorses a history of GI bleed about 2012.? Per Cristian' note: records showed he had upper and lower endoscopy around 2012 including capsule endoscopy that failed to find an etiology for his anemia.? He is status post sleeve gastrectomy; was felt perhaps that was a contributing factor.? Meds Home Medications and Allergies Home Medications Medication Instructions Recorded Confirmed Type chondroitin sulfate A 250 mg 1 mg PO DAILY ##0 09/07/17 01/15/23 History capsule (Chondroitin Sulfate) glucosamine sulfate 500 mg tablet 750 mg PO QDAY ##0 09/07/17 01/15/23 History (Cidatrine (glucosamine)) blood-glucose meter #1 ea 05/23/20 01/15/23 Rx amlodipine 10 mg tablet 10 mg PO QDAY #90 tabs 12/25/21 01/15/23 Rx glipizide 5 mg tablet 5 mg PO QPM #90 tabs 05/18/22 01/15/23 Rx blood sugar diagnostic (Blood #100 ea 10/27/22 01/15/23 Rx Glucose Test strips) lancets 30 gauge ([employer] Lancets) #100 ea 10/27/22 01/15/23 Rx semaglutide 0.25 mg or 0.5 mg (2 0.5 mg (0.4 mL) SUBCUT QWEEK #6 mL 12/28/22 01/15/23 Rx mg/1.5 mL) subcutaneous pen injector ([employer]) aspirin 81 mg tablet,delayed 81 mg PO DAILY 01/15/23 01/15/23 History release atorvastatin 40 mg tablet 80 mg PO DAILY 01/15/23 01/15/23 History ferrous sulfate 325 mg (65 mg 325 mg PO DAILY 01/15/23 01/15/23 History iron) tablet metoprolol succinate 50 mg 50 mg PO DAILY 01/15/23 01/15/23 History tablet,extended release 24 hr pantoprazole 40 mg tablet,delayed 40 mg PO DAILY 01/15/23 01/15/23 History release prasugrel 10 mg tablet 10 mg PO DAILY 01/15/23 01/15/23 History valsartan 80 mg tablet 80 mg PO DAILY 01/15/23 01/15/23 History Allergies Allergy/AdvReac Type Severity Reaction Status Date / Time NSAIDS (Non-Steroidal AdvReac Intermediate GI bleed Verified 01/14/23 21:08 Anti-Inflamma Exam Vital Signs (past 8 hours): - 01/15/23 12:30 01/15/23 15:09 Temperature 98 F 98.2 F Pulse Rate 78 80 Respiratory Rate 16 17 Blood Pressure 133/60 129/78 Pulse Oximetry 98 97 Oxygen Flow Rate 0 0 Oxygen Delivery Method Room Air Oxygen Flow Rate 0 Const General: cooperative, comfortable, well developed and frail appearing Nutritional Appearance: average body habitus and thin Orientation: alert, awake and oriented x3 HENMT Head: normal to inspection Mouth: moist mucous membranes Eyes General: appearance normal, both eyes and all related structures Resp Effort & Inspection: normal respiratory effort and able to speak in complete sentences Cardio Pulses: radial pulses present GI Palpation: soft and No tender (mild LLQ tenderness with a possible palpable mass LLQ, stool?) Extrem General: normal to inspection Objective Labs 01/15/23 11:15 06/23/23 11:15 Labs: Laboratory Results - last 24 hr 01/14/23 01/14/23 01/14/23 20:10 20:10 20:10 WBC 14.4 H RBC 3.44 L Hgb 9.0 L Hct 27.7 L MCV 80.4 MCH 26.2 MCHC 32.6 RDW 18.2 H Plt Count 505 H Neut % (Auto) 80.9 H Lymph % (Auto) 10.4 L [place] % (Auto) 7.4 Eos % (Auto) 0.9 L Baso % (Auto) 0.4 Neut # (Auto) 88590 H Lymph # (Auto) 1500 [place] # (Auto) 1100 H Eos # (Auto) 100 Baso # (Auto) 100 PT 13.2 H INR 1.2 APTT 29 Sodium 140 Potassium 4.2 Chloride 105 Carbon Dioxide 23 BUN 31 H Creatinine 1.76 H Estimated GFR 41 L BUN/Creatinine Ratio 17.6 Glucose 173 H Calcium 8.6 Total Bilirubin 0.3 AST 19 ALT 16 Alkaline Phosphatase 103 Total Creatine Kinase CK-MB (CK-2) CK-MB (CK-2) Rel Index Troponin I Total Protein 7.4 Albumin 3.5 Globulin 3.9 Albumin/Globulin Ratio 0.9 L Blood Type Antibody Screen Crossmatch 01/14/23 01/14/23 01/14/23 20:57 22:55 23:48 WBC RBC Hgb 8.3 L Hct 25.6 L MCV MCH MCHC RDW Plt Count Neut % (Auto) Lymph % (Auto) [place] % (Auto) Eos % (Auto) Baso % (Auto) Neut # (Auto) Lymph # (Auto) [place] # (Auto) Eos # (Auto) Baso # (Auto) PT INR APTT Sodium Potassium Chloride Carbon Dioxide BUN Creatinine Estimated GFR BUN/Creatinine Ratio Glucose Calcium Total Bilirubin AST ALT Alkaline Phosphatase Total Creatine Kinase 75 CK-MB (CK-2) TNP CK-MB (CK-2) Rel Index TNP Troponin I 0.104 H Total Protein Albumin Globulin Albumin/Globulin Ratio Blood Type O Positive Antibody Screen Negative Crossmatch See Detail 01/15/23 01/15/23 01/15/23 01:30 11:15 11:15 WBC RBC Hgb 8.7 L Hct 25.8 L MCV MCH MCHC RDW Plt Count Neut % (Auto) Lymph % (Auto) [place] % (Auto) Eos % (Auto) Baso % (Auto) Neut # (Auto) Lymph # (Auto) [place] # (Auto) Eos # (Auto) Baso # (Auto) PT INR APTT Sodium 140 Potassium 4.0 Chloride 107 Carbon Dioxide 25 BUN 34 H Creatinine 1.56 H Estimated GFR 47 L BUN/Creatinine Ratio 21.8 Glucose 102 Calcium 8.4 Total Bilirubin AST ALT Alkaline Phosphatase Total Creatine Kinase CK-MB (CK-2) CK-MB (CK-2) Rel Index Troponin I 0.099 H Total Protein Albumin Globulin Albumin/Globulin Ratio Blood Type Antibody Screen Crossmatch [facility] Medical History Anemia (2010) Chronic renal failure, stage 3a Colon polyps (2010) Coronary artery disease (~12/2022) Diabetes mellitus (1998) Diabetic neuropathy Diverticular disease (2010) Essential hypertension (08/17/17) GERD (gastroesophageal reflux disease) (2008) GI bleeding (2010) Gout (2008) Hypogonadism in male Iron deficiency anemia Ischemic cardiomyopathy (~12/2022) Kidney stone on right side Obesity (BMI 30.0-34.9) Type 2 diabetes mellitus Uncontrolled type 2 diabetes mellitus Surgical History Anesthesia S/P coronary artery stent placement (01/02/23) Status post laparoscopy (2004) Family History Father Hypertension Alzheimer's disease Cancer Grandfather Heart disease Grandmother No problems noted. Mother Cancer Grandfather Heart disease Grandmother Diabetes mellitus Social History marital status: unmarried,single household members: none Tobacco & Substance Use Smoking Status: Former smoker alcohol intake: former substance use type: marijuana Assessment & Plan Assessment and plan (1) GI bleed due to NSAIDs: Status: Acute Assessment & Plan narrative: I am not sure what the etiology of this GI bleeding is. It could be an upper GI bleed as that would be the most likely thing to be caused by NSAIDs... He was supposed to have taken a proton pump inhibitor but has not and so that puts him at risk as well. However he does endorse brighter red blood and perhaps he is having diverticular bleeding. The mass that he shows me and I can convince myself I am able to palpate on exam maybe something worth further investigating with a CT scan but at this time I think a endoscopies will be the highest yield next step and therefore I am going to start a MiraLax and Gatorade prep for him tonight and schedule him for a colonoscopy and an EGD in the morning. These procedures will be done by my partner Dr. Morton and the time exactly will be determined. Discussed with Dr. Owen.
[2023-01-15] MEDS: polyethylene glycoL 3350 17 GM POWD.PACK 119 GM PO (20:20)
[2023-01-15] MEDS: ATORVASTATIN 20 MG TABLET 80 MG PO (20:21)
[2023-01-15] MEDS: DOCUSATE 100 MG CAPSULE 400 MG PO (20:21)
[2023-01-16] VITALS (12 sets, daily range): BP systolic 82–135; BP diastolic 43–88; PULSE 78–105; RESP 12–76; TEMP 35.9–36.6; O2SAT 93–99; BMI 29.4
--- NOTE | 2023-01-16 | PATH_ITS ---
[facility] Accession Number: [id number] No. of containers..02 Tissue . 01 Material submitted: . PART A: stomach - ANTRUM BIOPSY PART B: stomach - BODY OF STOMACH BIOPSY . 01 Diagnosis: A. Gastric Antrum, Biopsy: Gastric antral mucosa with mild chronic inflammation. Negative for Helicobacter organisms by immunohistochemistry. Negative for intestinal metaplasia. Negative for dysplasia or malignancy. . B. Stomach Body, Biopsy: Gastric body mucosa with mild chronic and active inflammation. Negative for Helicobacter organisms by immunohistochemistry. Negative for intestinal metaplasia. Negative for dysplasia or malignancy. MRV 01/25/2023 1510 Local . 01 Electronically signed: . Sami Quispe MD, PhD, Pathologist NPI- [id number] . 01 Gross description: . Part A: ANTRUM BIOPSY: Received in formalin are 3 fragment(s) of bradford, soft tissue measuring 0.1 x 0.1 x 0.1 cm to 0.2 x 0.2 x 0.1 cm submitted entirely in 1 cassette(s) Part B: BODY OF STOMACH BIOPSY: Received in formalin are 2 fragment(s) of bradford, soft tissue measuring 0.2 x 0.2 x 0.2 cm to 0.3 x 0.3 x 0.2 cm submitted entirely in 1 cassette(s) /DNAIELA 01/20/2023 2311 Local . 01 Microscopic: . A. An immunohistochemical stain was performed to evaluate for Helicobacter organisms and is negative. The control stain showed appropriate reactivity. . B. An immunohistochemical stain was performed to evaluate for Helicobacter organisms and is negative. The control stain showed appropriate reactivity. . * This test was developed and its performance characteristics determined by [employer]. It has not been cleared or approved by the U.S. Food and Drug Administration. The FDA has determined that such clearance or approval is not necessary. This test is used for clinical purposes. It should not be regarded as investigational or for research. . 01 Pathologist provided ICD-10: K29.70 . 01 CPT . 533662, 410977, G01909 Specimen Comment: A courtesy copy of this report has been sent to [phone] Performed at: 01 [facility] [address] [place] [address] [address] [facility], [place], [place] [id number] MD Goran London MD Phone: [phone]
[2023-01-16 05:30] LABS: Hematocrit 27.4 % (41-53)
--- NOTE | 2023-01-16 05:44 | PC.NURSE ---
Patient has been resting in bed for some of the shift. Up most of the night in the bathroom d/t bowel prep for colonoscopy. Pt has refused ivf d/t up so often to use the bathroom. Has been independent in room. Pt has been A&O, calm and cooperative.
[2023-01-16 05:45] LABS: BUN Creatinine Ratio 22.5 (6-22); Blood Urea Nitrogen 38 mg/dL (9-20); Calcium 8.3 mg/dL (8.4-10.2); Carbon Dioxide 22 mmol/L (22-32); Chloride 105 mmol/L (98-107); Estimated Glomerular Filt Rate 43 mL/min (>60); Glucose 116 mg/dL (80-110); HEMOLYSIS < 15 (0-50); Potassium 3.7 mmol/L (3.4-5.1); Sodium 140 mmol/L (137-145)
[2023-01-16] MEDS: polyethylene glycoL 3350 17 GM POWD.PACK 119 GM PO (06:18)
[2023-01-16] MEDS: SODIUM CHLORIDE 0.9% FLUSH 10 ML IV ×2 (09:00→22:29)
[2023-01-16] MEDS: PANTOPRAZOLE 40 MG VIAL IV ×2 (09:53→22:18)
[2023-01-16] MEDS: LACTATED RINGERS 1,000 ML 100 ML IV (12:28)
--- NOTE | 2023-01-16 12:48 | PM.PN.1 ---
Subjective Subjective Date Patient Seen: 01/16/23 Time Patient Seen: 12:48 Interval history: Patient had a rough night last night with prep. He did not get much sleep and has been sitting on the toilet for the last hour. He feels worn out. He denies any shortness of breath or chest pain or lightheadedness or dizziness Reviewed his chart, workup and recent stent placement and medication changes. He was started on number of different medications including baby aspirin atorvastatin 80 mg metoprolol 50 mg daily pantoprazole 40 mg, platelet inhibitor prasugrel, valsartan 80 mg and iron sulfate. This is in addition to his outpatient medications of Ozempic, Jardiance, glipizide, amlodipine glucosamine chondroitin sulfate and Tylenol. His valsartan hydrochlorothiazide was stopped and his metformin was stopped. Review of systems is negative other than above. Exam Vital Signs (past 8 hours): - 01/16/23 08:00 01/16/23 12:21 Temperature 96.8 F L 97.2 F L Pulse Rate 90 80 Respiratory Rate 15 Blood Pressure 130/75 123/75 Pulse Oximetry 99 95 Oxygen Delivery Method Room Air Oxygen Delivery Method Room Air Oxygen Flow Rate 0 Narrative Exam Narrative: Patient appears pale and older than stated age. He is alert and oriented x3 in no apparent distress HEENT shows mucous membranes moist and pink with no mucosal lesions Neck is supple without adenopathy Chest: Clear to auscultation without wheezes rhonchi or crackles Cor: Regular rate and rhythm without a murmur Abdomen: Positive bowel sounds, soft, nontender Extremities: Trace nonpitting edema bilateral lower extremities ankle and pedal Objective Labs 01/16/23 05:00 01/16/23 05:00 Labs: Laboratory Results - last 24 hr 01/14/23 01/16/23 01/16/23 20:57 05:00 05:00 Hgb 9.0 L Hct 27.4 L Sodium 140 Potassium 3.7 Chloride 105 Carbon Dioxide 22 BUN 38 H Creatinine 1.69 H Estimated GFR 43 L BUN/Creatinine Ratio 22.5 H Glucose 116 H Calcium 8.3 L Blood Type O Positive Antibody Screen Negative Crossmatch See Detail [facility] Medical History Anemia (2010) Chronic renal failure, stage 3a Colon polyps (2010) Coronary artery disease (~12/2022) Diabetes mellitus (1998) Diabetic neuropathy Diverticular disease (2010) Essential hypertension (08/17/17) GERD (gastroesophageal reflux disease) (2008) GI bleeding (2010) Gout (2008) Hypogonadism in male Iron deficiency anemia Ischemic cardiomyopathy (~12/2022) Kidney stone on right side Obesity (BMI 30.0-34.9) Type 2 diabetes mellitus Uncontrolled type 2 diabetes mellitus Surgical History Anesthesia S/P coronary artery stent placement (01/02/23) Status post laparoscopy (2004) Family History Father Hypertension Alzheimer's disease Cancer Grandfather Heart disease Grandmother No problems noted. Mother Cancer Grandfather Heart disease Grandmother Diabetes mellitus Social History marital status: unmarried,single household members: none Smoking Status: Former smoker alcohol intake: former substance use type: marijuana Assessment & Plan Assessment & Plan narrative: Hospital day 2. For this pleasant 72-year-old patient of Dr. Owen who is seen in [facility]. He was admitted early yesterday morning with a GI bleed in the context of being on dual platelet inhibitors for recent drug-eluting stent that was placed by Cardiology at [facility]. This was done at [facility] and attending provider was Dr. Ct holder do the stent 1.? GI bleed- sounds similar to a presentation back 10+ years ago with some occasional maroon or rectal bleeding.? I guess prior to that he had presented with iron deficiency anemia and had full upper and lower endoscopy with capsule endoscopy as well the failed to define a GI source of blood loss, was felt to be due to NSAIDs therapy.? Patient's certainly if at all possible needs to continue on antiplatelet therapy and so I think he needs repeat endoscopic evaluation for more serious lesion that would preclude him being able to continue on his antiplatelet therapy. General surgery has been consulted and he has been prepped for colonoscopy and EGD and colonoscopy will be done now. 2.? Status post recent placement drug-eluting stent right coronary artery-I agree patient would be at super high-risk if antiplatelet therapy was discontinued, especially in the first 3 months after placement of the stent.? Hopefully we can continue that but deserves probably careful evaluation of his GI tract as above.? Patient with multivessel disease and plan was for a staged approach to treating this without bypass surgery (minimally invasively).? Therefore I think he would benefit from probably a higher hemoglobin hematocrit, my target would be a hemoglobin of greater than 8 and hematocrit greater than 25%, especially if we are going to allow some degree of bleeding because of his need to continue on antiplatelet therapy. We will discuss with Cardiology pending the results of the scope as well as how he continues to do. 3. Ischemic cardiomyopathy-patient most recently had echo demonstrating ejection fraction of 40% with severe basilar inferior lateral hypokinesis.? This is secondary to his recent DE it would appear.? Continue to monitor carefully for evidence of volume/fluid overload. Will check BNP tomorrow and continue to monitor. 4. Diabetes-patient normally on Ozempic plus oral meds.? Hold oral meds while NPO but resume when able to eat.? Continue monitor his numbers and use insulin as necessary. Continue with monitoring 5.? VTE prophylaxis-not a candidate for anticoagulation given his GI bleeding presentation.? Continue with SCDs 6.? Code status-patient appropriate for full code in the event of a sudden cardiac or respiratory arrest which is not at this point anticipated 55 minutes spent with patient in reviewing his chart meeting with him discussing with General surgery and reviewing the workup thus far formulating a plan and documentation Quality VTE Deep Vein Thrombosis/Pulmonary Embolism Present on Admission: No
--- NOTE | 2023-01-16 13:28 | PM.OP.EC ---
Operative Date/Time/Diagnoses Date of procedure: 01/16/23 Time of procedure: 13:28 Pre-op diagnosis: Melena Post-op diagnosis: same Procedure & Clinicians Study performed: EGD and colonoscopy Same procedure as scheduled: Yes Surgeon: Gabino Morton Procedure Notes Procedure in detail: Surgeon: Gabino Morton MD Anesthesia: Marta Samson DO Procedure in detail: A timeout was performed. A bite blocked was placed and monitors were attached to the patient. The patient was positioned in a left lateral decubitus position. Sedation was administered. Once the patient was sedated the endoscope was inserted through the bite block and passed through the esophagus and stomach and into the duodenum. The duodenal mucosa appeared normal. Duodenal bulb appeared normal. We then withdrew the scope into the stomach. There was mild antritis and random biopsies were taken from the antrum. There was no evidence of active or recent bleeding. There was a patch of thickened mucosa in the midbody of the stomach and random biopsies were taken from this area. The endoscope was retroflexed and a moderate hiatal hernia was seen. The endoscope was straightned and withdrawn into the esophagus. No other abnormalities were seen. Findings: Mild antritis, patch of thickened mucosa body of the stomach and a moderate hiatal hernia Next we repositioned the patient for a colonoscopy. A digital rectal exam was performed and was normal. The colonoscope was inserted and advanced to mid sigmoid colon. There was substantial diverticulosis. The mucosa was rather inflamed and thickened in the mid sigmoid colon. This could reflect active sigmoid diverticulitis. The scope could not easily be advanced due to the degree of inflammation of mucosa and procedure was aborted for safety. Findings: Significant sigmoid diverticulosis and inflammation and thickening of the sigmoid colon EBL: 5 mL Scope withdrawal time: Not applicable Sedation minutes: 13 minutes Post-procedure Disposition: PACU
--- NOTE | 2023-01-16 13:33 | DI.CT.S_ITS ---
PROCEDURE: CT ABDOMEN PELVIS W CON INDICATIONS: rule out sigmoid diverticulitis TECHNIQUE: After the administration of oral and intravenous contrast, axial sections were acquired from the lung bases to the pubic symphysis. Coronal and sagittal reformats were performed. For radiation dose reduction, the following was used: automated exposure control, adjustment of mA and/or kV according to patient size. COMPARISON:[facility], CT, CT ABDOMEN PELVIS W CON, 10/18/2020, 16:08. FINDINGS: Image quality: Excellent. Lung bases: Lung bases are clear. Heart size is normal. Coronary artery stents and calcifications. Solid organs: Liver: The liver has no mass or intrahepatic biliary ductal dilatation. The liver has low density consistent with hepatic steatosis. Biliary: The gallbladder has no gallstones, pericholecystic fluid, gallbladder wall thickening, or surrounding inflammatory change. Pancreas: The pancreas has no mass or ductal dilatation. There is no surrounding inflammation. Spleen: Normal size. There are no masses. Adrenals: No hypertrophy or nodules. Kidneys: No obstructive calculus or hydronephrosis. No solid mass. No cystic mass. Peritoneum and bowel: The distal esophagus is normal. Postoperative changes of gastric surgery are seen. The small bowel has a normal caliber and appearance. The terminal ileum is normal. The large bowel has diverticulosis of the left colon and sigmoid colon with wall thickening and surrounding inflammation of a long segment of the sigmoid colon consistent with acute diverticulitis. There is no evidence of perforation or abscess.. The appendix is normal. No free fluid or air. Nodes and vessels: No retroperitoneal or mesenteric adenopathy by size criteria. 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 The aorta has atherosclerosis with no aneurysmal dilatation. Miscellaneous: No abdominal wall mass or hernia. PELVIS: Genitourinary: The bladder has no wall thickening or mass. No bladder calcifications. Bones: No suspicious bony lesions. No vertebral body compression fractures. IMPRESSION: Acute diverticulitis of the sigmoid colon without evidence of perforation or abscess. Dictated by: Jaleel Bentley M.D. on 01/16/2023 at 15:06 Approved by: Jaleel Bentley M.D. on 01/16/2023 at 15:11
--- NOTE | 2023-01-16 14:06 | SUR.PHASEI ---
Pt transferred back to room 225 on stretcher. A/ox3. Stood and transferred to bed. Steady on feet. VS done and telemetry on and working. Report at bedside to Roxy BLAKELY.
[2023-01-16] MEDS: FERROUS SULFATE 325 MG TABLET PO (19:00)
[2023-01-16] MEDS: METOPROLOL ER 50 MG TABLET PO (19:01)
[2023-01-16] MEDS: ASPIRIN EC 81 MG TABLET PO (19:01)
[2023-01-16] MEDS: PIPERACILLIN/TAZO 4.5 GM in SODIUM CHLORIDE 0.9% 100 ML IV (19:50)
[2023-01-16] MEDS: SODIUM CHLORIDE 0.9% 1,000 ML 100 ML IV (20:05)
[2023-01-16] MEDS: ATORVASTATIN 20 MG TABLET 80 MG PO (22:18)
[2023-01-17] VITALS (7 sets, daily range): BP systolic 117–147; BP diastolic 64–74; PULSE 76–93; RESP 16–23; TEMP 36.1–36.7; O2SAT 95–97
[2023-01-17] MEDS: PIPERACILLIN/TAZO 3.375 GM in SODIUM CHLORIDE 0.9% 100 ML IV ×3 (04:16→20:04)
--- NOTE | 2023-01-17 06:53 | PC.NURSE ---
Assistant Office Manager Note-Patient has had few loose stools. Was able to sleep. Declines IV fluids when Abx not infusing, says the tubing gets in the way, patient has mild anxiety, declined offer of prn lorazepam.
[2023-01-17] MEDS: ASPIRIN EC 81 MG TABLET PO (08:34)
[2023-01-17] MEDS: SODIUM CHLORIDE 0.9% FLUSH 10 ML IV ×2 (08:34→20:04)
[2023-01-17] MEDS: FERROUS SULFATE 325 MG TABLET PO (08:34)
[2023-01-17] MEDS: METOPROLOL ER 50 MG TABLET PO (08:34)
[2023-01-17] MEDS: PANTOPRAZOLE 40 MG VIAL IV ×2 (08:34→20:04)
--- NOTE | 2023-01-17 12:33 | P.PN_ITS ---
Subjective Subjective Date Patient Seen: 01/17/23 Time Patient Seen: 12:33 Interval history: Patient doing much better today. He is still having frequent small bowel movements but no blood or maroon-colored stool. He is hungry. He is not having any nausea or vomiting. He states that he is a long history of diverticulosis as well as diverticulitis and that this is something that runs in his family as well in his related to taking nonsteroidals and aspirin type medications. He states that this is his usual presentation of diverticulitis. He underwent EGD that showed mild antritis. He had colonoscopy but could not go past the sigmoid colon due to significant inflammation and significant diverticulosis. Then a CT scan with contrast was done and showed most likely diverticulitis. He is now on Zosyn. He is tolerating clear liquids. Otherwise no change in history Review of systems is negative for chest pain, respiratory difficulty, palpitations, lightheadedness, dizziness, nausea, vomiting Exam Vital Signs (past 8 hours): - 01/17/23 05:29 01/17/23 08:34 01/17/23 08:46 Temperature 98.1 F 97.3 F L Pulse Rate 82 82 Respiratory Rate 16 18 Blood Pressure 117/64 117/64 147/69 H Pulse Oximetry 97 95 Oxygen Flow Rate 0 01/17/23 09:47 01/17/23 11:26 Temperature 96.9 F L Pulse Rate 93 H 76 Respiratory Rate 18 Blood Pressure 127/74 Pulse Oximetry 97 Oxygen Flow Rate 0 Oxygen Delivery Method Room Air Oxygen Flow Rate 0 Narrative Exam Narrative: Afebrile vital signs are stable HEENT unremarkable Neck: Supple without adenopathy or thyromegaly Chest: Clear to auscultation without wheezes rhonchi or crackles Cor: Regular rate and rhythm without murmur, distant S1-S2 Abdomen: Positive bowel sounds, soft, no guarding, no hepatosplenomegaly, left lower quadrant tenderness but no guarding or rebound Extremities trace to 1+ pitting edema Objective Labs 01/16/23 05:00 01/16/23 05:00 [facility] Medical History Anemia (2010) Chronic renal failure, stage 3a Colon polyps (2010) Coronary artery disease (~12/2022) Diabetes mellitus (1998) Diabetic neuropathy Diverticular disease (2010) Essential hypertension (08/17/17) GERD (gastroesophageal reflux disease) (2008) GI bleeding (2010) Gout (2008) Hypogonadism in male Iron deficiency anemia Ischemic cardiomyopathy (~12/2022) Kidney stone on right side Obesity (BMI 30.0-34.9) Type 2 diabetes mellitus Uncontrolled type 2 diabetes mellitus Surgical History Anesthesia S/P coronary artery stent placement (01/02/23) Status post laparoscopy (2004) Family History Father Hypertension Alzheimer's disease Cancer Grandfather Heart disease Grandmother No problems noted. Mother Cancer Grandfather Heart disease Grandmother Diabetes mellitus Social History marital status: unmarried,single household members: none Smoking Status: Former smoker alcohol intake: former substance use type: marijuana Assessment & Plan Assessment & Plan narrative: Pleasant 72-year-old male here for hospital day 3. Seen in [place] for Dr. Owen. 1.? GI bleed-suspect lower in now after scopes and CT sounds like diverticulitis. Overall patient is stable. Will do a stat H&H as this was not drawn today yet. We will go ahead and advance his diet if agreed by surgery. We will continue with the Zosyn for another day of IV antibiotics. Will continue to monitor closely. 2.? Status post recent placement drug-eluting stent right coronary artery- patient is on dual platelet inhibitors and needs to be on this for 3-6 months as it has been 12 days since he had a drug-eluting stent placed for an acute OK. at this point he seems to be stable in terms of bleeding and we will treat the diverticulitis and continue to monitor closely. He will have close follow-up with Cardiology assuming things remain stable and he is discharged home. 3. Ischemic cardiomyopathy-patient most recently had echo demonstrating ejection fraction of 40% with severe basilar inferior lateral hypokinesis.? This is secondary to his recent OK it would appear.? Continue to monitor carefully for evidence of volume/fluid overload.? Will stop IV fluids. Consider IV Lasix pending how he responds to stopping the fluids overall he seems slightly fluid overloaded but not having any symptoms. 4. Diabetes-patient normally on Ozempic plus oral meds.? Hold metformin due to CT scan with contrast. Can restart this tomorrow. He is refused supplemental insulin but really his blood sugars have been good. We will continue to monitor closely as we advance his diet. Continue with monitoring 5.? VTE prophylaxis-not a candidate for anticoagulation given his GI bleeding presentation.? Continue with SCDs 6.? Code status-patient appropriate for full code in the event of a sudden c ardiac or respiratory arrest which is not at this point anticipated 55 minutes spent with patient in reviewing his chart meeting with him discussing with General surgery and reviewing the workup thus far formulating a plan and documentation Quality VTE Deep Vein Thrombosis/Pulmonary Embolism Present on Admission: No
[2023-01-17 13:00] LABS: Add Manual Diff / Slide Review NO; Basophils Absolute Auto 100 /uL (0-100); Basophils Percent Auto 0.8 % (0-2); Eosinophils Absolute Auto 200 /uL (0-450); Eosinophils Percent Auto 1.5 % (2-4); Hematocrit 29.6 % (41-53); Hemoglobin 9.7 g/dL (13.5-17.5); Lymphocytes Absolute Auto 1100 /uL (1100-4500); Lymphocytes Percent Auto 8.4 % (25-40); Mean Corpuscular HGB Conc 32.9 % (30-36); Mean Corpuscular Hemoglobin 26.6 PG (26-34); Mean Corpuscular Volume 80.9 fL (80-100); Monocytes Absolute Auto 600 /uL (0-900); Monocytes Percent Auto 4.5 % (3-14); Neutrophils Absolute Auto 10900 /uL (1500-7000); Neutrophils Percent Auto 84.8 % (50-75); Platelet Count 503 X10^3/uL (150-400); Red Blood Cell Count 3.67 X10^6/uL (4.5-5.9); Red Cell Distribution Width 17.8 % (11.6-14.8); White Blood Cell Count 12.8 X10^3/uL (4.5-11.0)
[2023-01-17 13:08] LABS: BUN Creatinine Ratio 15.4 (6-22); Blood Urea Nitrogen 25 mg/dL (9-20); Calcium 8.4 mg/dL (8.4-10.2); Carbon Dioxide 24 mmol/L (22-32); Chloride 106 mmol/L (98-107); Estimated Glomerular Filt Rate 45 mL/min (>60); Glucose 140 mg/dL (80-110); HEMOLYSIS < 15 (0-50); Potassium 3.3 mmol/L (3.4-5.1); Sodium 140 mmol/L (137-145)
[2023-01-17] MEDS: POTASSIUM CHLORIDE 20 MEQ TAB 40 MEQ PO (13:48)
--- NOTE | 2023-01-17 15:40 | P.PN_ITS ---
Subjective Subjective Date Patient Seen: 01/17/23 Time Patient Seen: 15:40 Interval history: CT yesterday confirms the diagnosis of acute sigmoid diverticulitis. He has been started Zosyn. Exam Vital Signs (past 8 hours): - 01/17/23 08:34 01/17/23 08:46 01/17/23 09:47 Temperature 97.3 F L Pulse Rate 82 93 H Respiratory Rate 18 Blood Pressure 117/64 147/69 H Pulse Oximetry 95 Oxygen Flow Rate 0 01/17/23 11:26 Temperature 96.9 F L Pulse Rate 76 Respiratory Rate 18 Blood Pressure 127/74 Pulse Oximetry 97 Oxygen Flow Rate 0 Oxygen Delivery Method Room Air Oxygen Flow Rate 0 Narrative Exam Narrative: Asleep Abdomen soft Objective Labs 01/17/23 12:39 01/17/23 12:39 Labs: Laboratory Results - last 24 hr 01/17/23 01/17/23 12:39 12:39 WBC 12.8 H RBC 3.67 L Hgb 9.7 L Hct 29.6 L MCV 80.9 MCH 26.6 MCHC 32.9 RDW 17.8 H Plt Count 503 H Neut % (Auto) 84.8 H Lymph % (Auto) 8.4 L [place] % (Auto) 4.5 Eos % (Auto) 1.5 L Baso % (Auto) 0.8 Neut # (Auto) 81442 H Lymph # (Auto) 1100 [place] # (Auto) 600 Eos # (Auto) 200 Baso # (Auto) 100 Sodium 140 Potassium 3.3 L Chloride 106 Carbon Dioxide 24 BUN 25 H Creatinine 1.62 H Estimated GFR 45 L BUN/Creatinine Ratio 15.4 Glucose 140 H Calcium 8.4 PFSH Medical History Anemia (2010) Chronic renal failure, stage 3a Colon polyps (2010) Coronary artery disease (~12/2022) Diabetes mellitus (1998) Diabetic neuropathy Diverticular disease (2010) Essential hypertension (08/17/17) GERD (gastroesophageal reflux disease) (2008) GI bleeding (2010) Gout (2008) Hypogonadism in male Iron deficiency anemia Ischemic cardiomyopathy (~12/2022) Kidney stone on right side Obesity (BMI 30.0-34.9) Type 2 diabetes mellitus Uncontrolled type 2 diabetes mellitus Surgical History Anesthesia S/P coronary artery stent placement (01/02/23) Status post laparoscopy (2004) Family History Father Hypertension Alzheimer's disease Cancer Grandfather Heart disease Grandmother No problems noted. Mother Cancer Grandfather Heart disease Grandmother Diabetes mellitus Social History marital status: unmarried,single household members: none Smoking Status: Former smoker alcohol intake: former substance use type: marijuana Assessment & Plan Assessment and plan (1) Sigmoid diverticulitis: Status: Acute Plan Continue Zosyn. Advance that as tolerates. His white blood cell count has come down a bit further he could be transitioned to oral antibiotics and discharged home. Quality VTE Deep Vein Thrombosis/Pulmonary Embolism Present on Admission: No
[2023-01-17] MEDS: ATORVASTATIN 20 MG TABLET 80 MG PO (20:04)
[2023-01-18] VITALS (7 sets, daily range): BP systolic 114–154; BP diastolic 67–86; PULSE 76–99; RESP 15–20; TEMP 36.2–36.8; O2SAT 97–99
[2023-01-18 04:52] LABS: Add Manual Diff / Slide Review NO; Basophils Absolute Auto 100 /uL (0-100); Basophils Percent Auto 0.6 % (0-2); Eosinophils Absolute Auto 200 /uL (0-450); Eosinophils Percent Auto 2.9 % (2-4); Hematocrit 25.4 % (41-53); Hemoglobin 8.4 g/dL (13.5-17.5); Lymphocytes Absolute Auto 1100 /uL (1100-4500); Lymphocytes Percent Auto 13.1 % (25-40); Mean Corpuscular Hemoglobin 26.8 PG (26-34); Mean Corpuscular Volume 81.2 fL (80-100); Monocytes Absolute Auto 600 /uL (0-900); Monocytes Percent Auto 6.8 % (3-14); Neutrophils Absolute Auto 6500 /uL (1500-7000); Neutrophils Percent Auto 76.6 % (50-75); Platelet Count 431 X10^3/uL (150-400); Red Blood Cell Count 3.13 X10^6/uL (4.5-5.9); White Blood Cell Count 8.5 X10^3/uL (4.5-11.0)
[2023-01-18 05:06] LABS: Alanine Aminotransferase 14 IU/L (<50); Albumin 3.1 g/dL (3.5-5.0); Albumin Globulin Ratio 0.9 (1.0-2.8); Alkaline Phosphatase 83 U/L (38-126); Aspartate Aminotransferase 21 IU/L (17-59); BUN Creatinine Ratio 12.6 (6-22); Bilirubin Total 0.3 mg/dL (0.2-1.3); Blood Urea Nitrogen 20 mg/dL (9-20); Calcium 8.1 mg/dL (8.4-10.2); Carbon Dioxide 25 mmol/L (22-32); Chloride 109 mmol/L (98-107); Estimated Glomerular Filt Rate 46 mL/min (>60); Globulin 3.3 g/dL (1.7-4.1); Glucose 97 mg/dL (80-110); HEMOLYSIS < 15 (0-50); Potassium 3.2 mmol/L (3.4-5.1); Sodium 142 mmol/L (137-145); Total Protein 6.4 g/dL (6.3-8.2)
[2023-01-18] MEDS: PIPERACILLIN/TAZO 3.375 GM in SODIUM CHLORIDE 0.9% 100 ML IV (05:33)
[2023-01-18 08:14] LABS: Magnesium 1.9 mg/dL (1.6-2.3)
--- NOTE | 2023-01-18 08:21 | P.PN_ITS ---
Subjective Subjective Date Patient Seen: 01/18/23 Time Patient Seen: 08:21 Interval history: Patient is sitting up at the edge of the bed no real complaints or issues Would like to have an advance diet No further evidence of bleeding, stool liquidy but no blood or maroon or cranberry colored material Exam Vital Signs (past 8 hours): - 01/18/23 04:00 Temperature 97.9 F Pulse Rate 90 Respiratory Rate 17 Blood Pressure 138/69 Pulse Oximetry 97 Oxygen Flow Rate 0 Oxygen Delivery Method Room Air Oxygen Flow Rate 0 Objective Labs 01/18/23 04:35 01/18/23 04:35 Labs: Laboratory Results - last 24 hr 01/17/23 01/17/23 01/18/23 12:39 12:39 04:35 WBC 12.8 H 8.5 RBC 3.67 L 3.13 L Hgb 9.7 L 8.4 L Hct 29.6 L 25.4 L MCV 80.9 81.2 MCH 26.6 26.8 MCHC 32.9 33.0 RDW 17.8 H 18.0 H Plt Count 503 H 431 H Neut % (Auto) 84.8 H 76.6 H Lymph % (Auto) 8.4 L 13.1 L [place] % (Auto) 4.5 6.8 Eos % (Auto) 1.5 L 2.9 Baso % (Auto) 0.8 0.6 Neut # (Auto) 54049 H 6500 Lymph # (Auto) 1100 1100 [place] # (Auto) 600 600 Eos # (Auto) 200 200 Baso # (Auto) 100 100 Sodium 140 Potassium 3.3 L Chloride 106 Carbon Dioxide 24 BUN 25 H Creatinine 1.62 H Estimated GFR 45 L BUN/Creatinine Ratio 15.4 Glucose 140 H Calcium 8.4 Magnesium Total Bilirubin AST ALT Alkaline Phosphatase Total Protein Albumin Globulin Albumin/Globulin Ratio 01/18/23 01/18/23 04:35 04:35 WBC RBC Hgb Hct MCV MCH MCHC RDW Plt Count Neut % (Auto) Lymph % (Auto) [place] % (Auto) Eos % (Auto) Baso % (Auto) Neut # (Auto) Lymph # (Auto) [place] # (Auto) Eos # (Auto) Baso # (Auto) Sodium 142 Potassium 3.2 L Chloride 109 H Carbon Dioxide 25 BUN 20 Creatinine 1.59 H Estimated GFR 46 L BUN/Creatinine Ratio 12.6 Glucose 97 Calcium 8.1 L Magnesium 1.9 Total Bilirubin 0.3 AST 21 ALT 14 Alkaline Phosphatase 83 Total Protein 6.4 Albumin 3.1 L Globulin 3.3 Albumin/Globulin Ratio 0.9 L [facility] Medical History Anemia (2010) Chronic renal failure, stage 3a Colon polyps (2010) Coronary artery disease (~12/2022) Diabetes mellitus (1998) Diabetic neuropathy Diverticular disease (2010) Essential hypertension (08/17/17) GERD (gastroesophageal reflux disease) (2008) GI bleeding (2010) Gout (2008) Hypogonadism in male Iron deficiency anemia Ischemic cardiomyopathy (~12/2022) Kidney stone on right side Obesity (BMI 30.0-34.9) Type 2 diabetes mellitus Uncontrolled type 2 diabetes mellitus Surgical History Anesthesia S/P coronary artery stent placement (01/02/23) Status post laparoscopy (2004) Family History Father Hypertension Alzheimer's disease Cancer Grandfather Heart disease Grandmother No problems noted. Mother Cancer Grandfather Heart disease Grandmother Diabetes mellitus Social History marital status: unmarried,single household members: none Smoking Status: Former smoker alcohol intake: former substance use type: marijuana Assessment & Plan Assessment & Plan narrative: 1. GI bleed-likely secondary to combination of his dual antiplatelet therapy plus his now diagnose diverticulitis. H&H relatively stable. No evidence of active bleeding based on output. Hopefully treatment of his diverticulitis will resolve this issue. Would recommend iron replacement therapy 2. Diverticulitis-patient's white count now normal. I am going to switch him off of IV antibiotics over to oral antibiotics with ciprofloxacin plus met ronidazole orally. I do not think this explains his previous issue with GI bleeding and nonsteroidal anti-inflammatory agents as that would been more clearly diagnosed 1 would think at the time but since I do not have the detailed medical records can not be sure about that. Perhaps this is the etiology for his intermittent bleeding as he describes it in the past. 3. Hypokalemia-will continue replace orally and check magnesium as well. 4. Coronary disease-patient remains asymptomatic. Maintain hemoglobin hematocrit as noted previously. Continue dual antiplatelet therapy. 5. Ischemic cardiomyopathy-no evidence of fluid overload at this point. All the more reason I think switch him to oral antibiotics at this point. 6. Type 2 diabetes-continue to monitor numbers. Will plan to return him to his usual meds upon discharge. Use insulin as necessary here, although blood sugars have been outstanding thus far here Overall patient is doing okay. I would like to normalize his electrolytes and re-feed him with a more normal diet as well as switch him to oral antibiotics prior to discharge. He can likely be discharged tomorrow however. Quality VTE Deep Vein Thrombosis/Pulmonary Embolism Present on Admission: No
[2023-01-18] MEDS: SODIUM CHLORIDE 0.9% FLUSH 10 ML IV ×2 (09:01→21:13)
[2023-01-18] MEDS: METOPROLOL ER 50 MG TABLET PO (09:02)
[2023-01-18] MEDS: PANTOPRAZOLE 40 MG VIAL IV ×2 (09:02→21:13)
[2023-01-18] MEDS: POTASSIUM CHLORIDE 20 MEQ TAB 40 MEQ PO ×3 (09:03→17:19)
[2023-01-18] MEDS: ASPIRIN EC 81 MG TABLET PO (09:04)
[2023-01-18] MEDS: FERROUS SULFATE 325 MG TABLET PO (09:04)
[2023-01-18] MEDS: metroNIDAZOLE 500 MG TABLET PO ×3 (09:33→21:13)
--- NOTE | 2023-01-18 15:25 | CM.DPC ---
DCP Continued: BROADBAND ENGINEER reviewed EMR. Per Brayden note, patient will likely d/c tomorrow after normalizing electrolytes and when patient is on a more normal diet. From nursing staff, patient is up walking around and appears to be doing well. BROADBAND ENGINEER entered room and introduced self and role. Patient was sitting up in bed and appeared A/Ox4. Patient reported being excited to go home. Patient reports his sister or neighbor is good to give him a ride home tomorrow. He reports not needs from this team. Patient asked for a blanket, which this BROADBAND ENGINEER provided for him. Patient asked for help with getting situated in bed and ordering his food for dinner. BROADBAND ENGINEER let nursing staff know patient could use some assistance. Plan: d/c home with assistance from sister or neighbors to transport when medically stable. CM team will continue to follow closely. MATT Montero
[2023-01-18] MEDS: ATORVASTATIN 20 MG TABLET 80 MG PO (21:13)
[2023-01-18] MEDS: CIPROFLOXACIN 250 MG TABLET 500 MG PO (21:25)
[2023-01-19 04:00] VITALS: BP 149/82; PULSE 84; RESP 17; TEMP 36.6; O2SAT 94
[2023-01-19 05:38] LABS: Hematocrit 23.8 % (41-53); Hemoglobin 7.8 g/dL (13.5-17.5)
[2023-01-19 05:50] LABS: BUN Creatinine Ratio 10.6 (6-22); Blood Urea Nitrogen 17 mg/dL (9-20); Carbon Dioxide 23 mmol/L (22-32); Chloride 113 mmol/L (98-107); Estimated Glomerular Filt Rate 45 mL/min (>60); Glucose 133 mg/dL (80-110); HEMOLYSIS < 15 (0-50); Magnesium 1.9 mg/dL (1.6-2.3); Potassium 4.1 mmol/L (3.4-5.1); Sodium 144 mmol/L (137-145)
[2023-01-19 08:00] VITALS: BP 154/87; PULSE 94; RESP 20; TEMP 36.7; O2SAT 100
--- NOTE | 2023-01-19 08:30 | PM.DS.1 ---
History of Present Illness History of Present Illness Date Patient Seen: 01/19/23 Time Patient Seen: 08:30 Chief complaint: diarrhea- gi bleed? Narrative: 72-year-old male admitted via the emergency department for GI bleed Patient discharged from [facility] in [place] after presentation with an ST-elevation VT and had drug-eluting stent placement into his right coronary artery. Discharge day was 01/03/2023. Also found to have an ischemic cardiomyopathy with left ventricular ejection fraction of about 40% and 2 additional coronary lesions that were felt to be amenable to further therapies once stabilized after above stent placement. Patient apparently started passing cranberry juice colored material via rectum beginning about noon on day of admission. He reported being somewhat hypotensive and tachycardic when evaluated by EMS. He improved rapidly with some IV fluids in the emergency department. Had 1 smaller bowel movement in the emergency department and has had no bowel movements since. No abdominal pain or discomfort. Very similar to what he experienced previously with episodic bleeding much like this when using more NSAIDs. 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 He however never had any endoscopy or evaluation performed during an actual episode since it always stopped and started fairly randomly, in the past. On ER evaluation he was found to be modestly anemic (patient's hemoglobin was 9.2 hematocrit 29.4 upon discharge from [facility] on 01/03/2023). Cardiology was consulted who felt strongly patient needs to continue on antiplatelet therapy given his recent stent placement he would be at super high risk if this was discontinued. General surgery was consulted here it felt like patient could remain at [facility] for evaluation. He is therefore admitted to my service Patient denies any chest pain or any symptoms similar to what he presented with with his VT. does have a distant history of apparently GI bleed, or least iron deficiency anemia. This would be in about 2012 or so. Per previous records had upper and lower endoscopy at that time including capsule endoscopy that failed to find an etiology for his anemia. He is status post sleeve gastrectomy was felt perhaps that was a contributing factor. Also patient maybe could be having diverticular bleed off and on with evidence of prior lower GI bleeding. Patient is overdue for colonoscopy at this time it appears (and patient confirms). Discharge Providers Provider Date of admission: 01/14/23 23:26 Discharge Date: 01/19/23 Primary care physician: Yury Owen MD Consults: 01/14/23 23:32 Consult to Physician Routine Comment: Consulting Provider: Gio Ledbetter Reason for consultation: GI bleed Has provider been notified: Yes 01/15/23 07:23 Consult to Physician Routine Comment: Consulting Provider: Gio Ledbetter Reason for consultation: GI Bleed Has provider been notified: Yes Discharge provider: Yury Owen MD Summary Hospital Course Discharge Diagnosis: 1. GI bleed, presumed lower GI source 2. Acute blood loss anemia secondary to GI bleed 3. Acute diverticulitis 4. Coronary artery disease status post drug-eluting stent placement right coronary artery within last 2 weeks 5. Type 2 diabetes 6. Essential hypertension 7. Ischemic cardiomyopathy with ejection fraction 40% on recent echocardiography 8. Chronic renal failure stage 3 a Hospital Course: Patient was admitted because of GI bleed with evidence of a written/cranberry colored stool. Given his recent cardiac procedure he had been placed on dual anti-platelet therapy very appropriately. Also because of his recent procedure there was concern about his ongoing anemia and bleeding as he needs to continue on the dual antiplatelet therapy. Therefore he was admitted as above. He was transfused packed red blood cells. He underwent prep and had upper and lower endoscopy performed. He had some mild inflammation of the gastric antrum but this was not clearly a source of bleeding. Colonoscopy demonstrated significant inflammation in the sigmoid colon with thickening and inability to safely transition the sigmoid colon. Subsequent CT scan showed evidence of sigmoid diverticulitis. Patient was started on parental antibiotics subsequently switched to oral antibiotics. He had no further bleeding after admission to the hospital. Patient's blood counts remained relatively stable during the remainder of his hospitalization. He had no cardiac symptoms whatsoever during his hospitalization Blood sugars are very well controlled during his hospitalization Patient is felt to be stable by the morning of January 19, 2023 to complete outpatient treatment with oral antibiotics for his diverticulitis as well as continue all of his other usual medications including dual anti-platelet therapy given his recent drug-eluting stent placement. Patient maybe not have some additional rectal bleeding given his personal history as noted in his H and P and should be evaluated if there seems like either persistence or large volumes of bleeding. Needs to stay on dual antiplatelet therapy for minimum of 3 months 6 months would be far more appropriate and even longer if clinically appropriate and stable Exam Vital Signs (past 8 hours): - 01/19/23 04:00 Temperature 97.9 F Pulse Rate 84 Respiratory Rate 17 Blood Pressure 149/82 H Pulse Oximetry 94 Oxygen Flow Rate 0 Oxygen Delivery Method Room Air Oxygen Flow Rate 0 Objective Labs 01/19/23 04:50 01/19/23 04:50 Labs: Laboratory Results - last 24 hr 01/19/23 01/19/23 04:50 04:50 Hgb 7.8 L Hct 23.8 L Sodium 144 Potassium 4.1 Chloride 113 H Carbon Dioxide 23 BUN 17 Creatinine 1.60 H Estimated GFR 45 L BUN/Creatinine Ratio 10.6 Glucose 133 H Calcium 8.0 L Magnesium 1.9 PFSH Medical History Anemia (2010) Chronic renal failure, stage 3a Colon polyps (2010) Coronary artery disease (~12/2022) Diabetes mellitus (1998) Diabetic neuropathy Diverticular disease (2010) Essential hypertension (08/17/17) GERD (gastroesophageal reflux disease) (2008) GI bleeding (2010) Gout (2008) Hypogonadism in male Iron deficiency anemia Ischemic cardiomyopathy (~12/2022) Kidney stone on right side Obesity (BMI 30.0-34.9) Type 2 diabetes mellitus Uncontrolled type 2 diabetes mellitus Surgical History Anesthesia S/P coronary artery stent placement (01/02/23) Status post laparoscopy (2004) Family History Father Hypertension Alzheimer's disease Cancer Grandfather Heart disease Grandmother No problems noted. Mother Cancer Grandfather Heart disease Grandmother Diabetes mellitus Social History marital status: unmarried,single household members: none Smoking Status: Former smoker alcohol intake: former substance use type: marijuana Discharge Assessment & Plan Assessment and Plan Plan of Treatment: Patient will continue all of his medications same as upon discharge from [facility] in [place] after his cardiac procedure. Patient will complete 7 more days of outpatient treatment ciprofloxacin and metronidazole to treat his diverticulitis Patient will return should he have more persistent evidence of rectal bleeding and or larger volumes Patient be seen in the outpatient clinic by Dr. Owen in approximately 2 weeks' time sooner as necessary Discharge Plan Discharge Plan Patient Disposition: Home Discharge orders & Medications Prescriptions: New metronidazole 500 mg Tablet 500 mg PO TID Qty: 21 0RF ciprofloxacin HCl 250 mg Tablet 500 mg PO 0700,2100 Qty: 14 0RF Jardiance 10 mg tablet 10 mg PO DAILY Qty: 90 3RF Continued Chondroitin Sulfate 250 MG capsule 1 mg PO DAILY Qty: 0 Patient Comments: unknown dose glucosamine sulfate [Cidatrine (glucosamine)] 500 MG tablet 750 mg PO QDAY Qty: 0 Rx Instructions: 750 [id number] mg. tab. 1 tab daily amlodipine 10 mg tablet 10 mg PO QDAY Qty: 90 3RF glipizide 5 mg tablet 5 mg PO QPM Qty: 90 3RF Ozempic 0.25 mg or 0.5 mg(2 mg/1.5 mL) pen injector 0.5 mg SUBCUT QWEEK Qty: 6 4RF atorvastatin 40 mg tablet 80 mg PO DAILY metoprolol succinate 50 mg tablet extended release 24 hr 50 mg PO DAILY pantoprazole 40 mg tablet,delayed release (DR/EC) 40 mg PO DAILY aspirin 81 mg Tablet,Delayed Release (Dr/Ec) 81 mg PO DAILY valsartan 80 mg tablet 80 mg PO DAILY prasugrel 10 mg Tablet 10 mg PO DAILY ferrous sulfate 325 mg (65 mg iron) Tablet 325 mg PO DAILY No Action (DME) blood-glucose meter Misc See Rx Instructions .ROUTE .MEDSUPPLY Qty: 1 0RF Rx Instructions: use to test blood sugar daily as directed (DME) lancets [TRUEplus Lancets] 30 gauge misc See Rx Instructions .Route Qty: 100 8RF Rx Instructions: Use to check BS once daily. (DME) Blood Glucose Test Strip See Rx Instructions .ROUTE .MEDSUPPLY Qty: 100 8RF Rx Instructions: Use to test blood sugar once daily Follow up/Referrals: Yury Owen MD [Primary Care Provider] - 2 Weeks (cancel appt for 01/25/2023, reschedule for 02/01 or 02/02, or 02/04) Discharge Health Status Multidrug resistant organism: No MDRO Diet/Activity/Treatments Diet: Diet as Tolerated and Carb-consistent/Diabetic Visit Report/Discharge Packet Stand Alone Forms: Patient Portal/API Discharge Data Primary Care Provider: Yury Owen VTE Deep Vein Thrombosis/Pulmonary Embolism Present on Admission: No
[2023-01-19] MEDS: PANTOPRAZOLE 40 MG VIAL IV (09:40)
[2023-01-19] MEDS: CIPROFLOXACIN 250 MG TABLET 500 MG PO (09:40)
--- NOTE | 2023-01-19 09:52 | PC.NURSE ---
Addendum entered by Colby Bhatia R.N. 01/19/23 11:15: Patient woke up, called and states he is feeling better and ready to take his medications. States he plans for discharge home when his ride gets here about 1430 today. Call light within reach, denies further needs at this time. Original Note: Patient refusing to take his oral medications this morning as he states I already ate my breakfast and I am too full. Encouraged patient to at least take his morning dose of cipro antibiotic as ordered. He states he will likely not take his other medications until noon. Patient states he is fatigued and lightheaded this morning. Vital signs re checked and stable. Patient denies pain, states he just wants to rest in bed. IV leaking and removed. Call light within reach, will continue to monitor.
[2023-01-19] MEDS: POTASSIUM CHLORIDE 20 MEQ TAB 40 MEQ PO (11:10)
[2023-01-19] MEDS: FERROUS SULFATE 325 MG TABLET PO (11:11)
[2023-01-19] MEDS: ASPIRIN EC 81 MG TABLET PO (11:11)
[2023-01-19] MEDS: metroNIDAZOLE 500 MG TABLET PO ×2 (11:11→14:26)
[2023-01-19] MEDS: METOPROLOL ER 50 MG TABLET PO (11:11)
--- NOTE | 2023-01-19 12:23 | CM.DPC ---
DCP Continued: INFORMATION TECHNOLOGY INSTRUCTOR reviewed EMR. INFORMATION TECHNOLOGY INSTRUCTOR entered room and reintroduced self and role. Patient was sitting up, appeared A/Ox4, and eating breakfast. Patient reports being excited to go home. Patient reports either his sister or one of two neighbors could come transport him home. Patient will call his sister after he finishes his breakfast. Plan: Patient will d/c home with assistance of sister. Patient will transport with either sister or neighbors. CM team will continue to follow as needed. MATT Montero
--- NOTE | 2023-01-19 14:47 | PC.NURSE ---
Discharge instructions and home care handout reviewed with patient prior to his discharge. He has no further questions at this time. Patient states he is aware of follow up appointment as scheduled. 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 Patient was escorted out via wheelchair with all his belongings by GINGER FARMER. Instructed to follow up as scheduled or seek care for new or worsening symptomts.
== END 2023-01-19 14:30 | disposition home or self-care (01) | DRG 378 ==
LOC: ED 20:43 → AC 01-15
PROVIDERS: Family Medicine; Surgery; Admitting Provider Family Medicine; Emergency Provider Emergency Medicine; Family Provider Family Medicine; PCP Internal Medicine; Visit Provider Internal Medicine
PROC: 0DJ08ZZ Inspection of Upper Intestinal Tract, Via Natural or Artificial Opening Endoscopic (ICD-10-PCS; CPT 43235; principal; 2023-01-16 12:30)
PROC: 0DJD8ZZ Inspection of Lower Intestinal Tract, Via Natural or Artificial Opening Endoscopic (ICD-10-PCS; CPT 45378; 2023-01-16 12:30)
DX: K57.33 Diverticulitis of large intestine without perforation or abscess with bleeding (principal); D62 Acute posthemorrhagic anemia; I25.5 Ischemic cardiomyopathy; I25.10 Atherosclerotic heart disease of native coronary artery without angina pectoris; E87.6 Hypokalemia; I12.9 Hypertensive chronic kidney disease with stage 1 through stage 4 chronic kidney disease, or unspecified chronic kidney disease; E11.22 Type 2 diabetes mellitus with diabetic chronic kidney disease; N18.32 Chronic kidney disease, stage 3b; K21.9 Gastro-esophageal reflux disease without esophagitis; Z79.1 Long term (current) use of non-steroidal anti-inflammatories (NSAID); Z79.84 Long term (current) use of oral hypoglycemic drugs; Z95.5 Presence of coronary angioplasty implant and graft; Z87.891 Personal history of nicotine dependence; Z79.85 Long-term (current) use of injectable non-insulin antidiabetic drugs; Z90.3 Acquired absence of stomach [part of]; Z20.822 Contact with and (suspected) exposure to COVID-19; Z79.02 Long term (current) use of antithrombotics/antiplatelets
CPT/HCPCS: 36415; 36430; 43239; 45378; 73660; 74177; 80048; 80053; 82272; 82550; 82553; 82962; 83735; 84484; 85014; 85018; 85025; 85610; 85730; 86850; 86900; 86901; 93005; 96374; 99223; 99232; 99233; 99238; 99284; P9016; C9113; J2543; J2704; Q9967

== ENCOUNTER → 2023-01-29 13:09 | Outpatient (CLI) | payer MEDICARE, OTHER, SELFPAY ==
[2023-01-15 00:53] VITALS: BMI 29.9
[2023-01-29 14:28] LABS: Alanine Aminotransferase 14 IU/L (<50); Albumin 3.2 g/dL (3.5-5.0); Alkaline Phosphatase 70 U/L (38-126); Aspartate Aminotransferase 23 IU/L (17-59); BUN Creatinine Ratio 15.1 (6-22); Bilirubin Total 0.3 mg/dL (0.2-1.3); Blood Urea Nitrogen 22 mg/dL (9-20); Calcium 8.7 mg/dL (8.4-10.2); Carbon Dioxide 24 mmol/L (22-32); Chloride 109 mmol/L (98-107); Estimated Glomerular Filt Rate 51 mL/min (>60); Globulin 3.2 g/dL (1.7-4.1); Glucose 134 mg/dL (80-110); HEMOLYSIS 34 (0-50); Lipase 75 U/L (23-300); Potassium 4.2 mmol/L (3.4-5.1); Sodium 141 mmol/L (137-145); Total Protein 6.4 g/dL (6.3-8.2)
[2023-01-30 08:39] LABS: Labcorp Hemoglobin (Hb) A1c 6.1 % (4.8-5.6)
== END ==
PROVIDERS: Family Provider Family Medicine; PCP Internal Medicine; Referring Provider Internal Medicine; Visit Provider Internal Medicine
DX: I10 Essential (primary) hypertension (principal); N18.31 Chronic kidney disease, stage 3a; E11.9 Type 2 diabetes mellitus without complications
CPT/HCPCS: 36415; 80053; 83036; 83690

== ENCOUNTER → 2023-01-30 11:35 | Outpatient (CLI) | payer MEDICARE, OTHER, SELFPAY ==
[2023-01-15 00:53] VITALS: BMI 29.9
[2023-01-30 13:32] LABS: Microalbumi Creatinin Ratio Ur 105.2 ug/mg CR (<30)
== END ==
PROVIDERS: Family Provider Family Medicine; PCP Internal Medicine; Referring Provider Internal Medicine; Visit Provider Internal Medicine
DX: I10 Essential (primary) hypertension (principal); E11.9 Type 2 diabetes mellitus without complications; N18.31 Chronic kidney disease, stage 3a
CPT/HCPCS: 82043; 82570

== ENCOUNTER → 2023-02-01 10:59 | Outpatient (CLI) | payer MEDICARE, OTHER, SELFPAY ==
[2023-01-15 00:53] VITALS: BMI 29.9
[2023-02-01 12:36] LABS: Add Manual Diff / Slide Review NO; Basophils Absolute Auto 0 /uL (0-100); Basophils Percent Auto 0.5 % (0-2); Eosinophils Absolute Auto 200 /uL (0-450); Hematocrit 27.7 % (41-53); Hemoglobin 9.2 g/dL (13.5-17.5); Lymphocytes Absolute Auto 700 /uL (1100-4500); Lymphocytes Percent Auto 8.9 % (25-40); Mean Corpuscular HGB Conc 33.1 % (30-36); Mean Corpuscular Volume 81.5 fL (80-100); Monocytes Absolute Auto 700 /uL (0-900); Monocytes Percent Auto 8.3 % (3-14); Neutrophils Absolute Auto 6600 /uL (1500-7000); Neutrophils Percent Auto 80.3 % (50-75); Platelet Count 428 X10^3/uL (150-400); Red Cell Distribution Width 18.8 % (11.6-14.8); White Blood Cell Count 8.2 X10^3/uL (4.5-11.0)
[2023-02-01 12:59] LABS: HEMOLYSIS < 15 (0-50); Iron 36 ug/dL (49-181)
[2023-02-01 13:10] LABS: Percent Iron Saturation 16 % (20-50); Total Iron Binding Capacity 219 ug/dL (261-462); Transferrin 123 mg/dL (206-381)
[2023-02-01 15:26] LABS: Clostridium Difficile Tox PCR Negative for C. diff (Negative)
== END ==
PROVIDERS: Family Provider Family Medicine; PCP Internal Medicine; Referring Provider Internal Medicine; Visit Provider Internal Medicine
DX: E11.9 Type 2 diabetes mellitus without complications (principal); I10 Essential (primary) hypertension; R19.7 Diarrhea, unspecified
CPT/HCPCS: 36415; 83540; 83550; 85025; 87493

== ENCOUNTER 2023-02-06 19:46 | Inpatient (IN) | payer MEDICARE, OTHER, SELFPAY ==
[2023-01-15 00:53] VITALS: BMI 29.9
[2023-02-06] VITALS (19 sets, daily range): BP systolic 126–154; BP diastolic 63–77; PULSE 107–113; RESP 17–34; TEMP 36.9; O2SAT 88–97; BMI 28.0
--- NOTE | 2023-02-06 19:50 | ED.GENADULT ---
HPI - General Adult General Chief complaint: Abdominal Pain Stated complaint: abd pain/weakness. Time Seen by Provider: 02/06/23 19:49 History of Present Illness HPI narrative: 72-year-old gentleman with a history of coronary syndrome with STEMI, drug-eluting stent placement January 03 [facility], ischemic cardiomyopathy, GI bleed with hospitalization, discharge January 19, at [facility] with CT scan on January 16 showing acute diverticulitis.. At that time there was a discussion with Cardiology regarding the risk of GI bleeding versus the risk of continuing Plavix given his recent stent placement. Additional problems include diabetes, hypertension, chronic kidney disease. He is brought in by medics today complaining of profuse diarrhea and weakness. He has not been able to leave the upper floor of his home for the last couple of days and has not been taking his medications because of that. He notes that he did take all of his medication at 6:00 p.m. tonight prior to calling medics. He complains of weakness, fevers, abdominal pain, profuse watery diarrhea, no cough no chest pain he does complain of a very dry mouth. Related Data Home Medications Medication Instructions Recorded Confirmed chondroitin sulfate A 250 mg 1 mg PO DAILY ##0 09/07/17 02/01/23 capsule (Chondroitin Sulfate) glucosamine sulfate 500 mg tablet 750 mg PO QDAY ##0 09/07/17 02/01/23 (Cidatrine (glucosamine)) aspirin 81 mg tablet,delayed 81 mg PO DAILY 01/15/23 02/01/23 release ferrous sulfate 325 mg (65 mg 325 mg PO DAILY 01/15/23 02/01/23 iron) tablet Previous Rx's Medication Instructions Recorded blood-glucose meter #1 ea 05/23/20 glipizide 5 mg tablet 5 mg PO QPM #90 tabs 05/18/22 blood sugar diagnostic (Blood #100 ea 10/27/22 Glucose Test strips) lancets 30 gauge (TRUEplus Lancets) #100 ea 10/27/22 semaglutide 0.25 mg or 0.5 mg (2 0.5 mg (0.4 mL) SUBCUT QWEEK #6 mL 12/28/22 mg/1.5 mL) subcutaneous pen injector (Ozempic) empagliflozin 10 mg tablet 10 mg PO DAILY #90 tabs 06/27/23 (Jardiance) amlodipine 10 mg tablet 10 mg PO QDAY #90 tabs 02/01/23 atorvastatin 80 mg tablet 80 mg PO DAILY #90 tabs 02/01/23 famotidine 40 mg tablet 40 mg PO DAILY #90 tabs 02/01/23 metoprolol succinate 50 mg 50 mg PO DAILY #90 tabs 02/01/23 tablet,extended release 24 hr prasugrel 10 mg tablet 10 mg PO DAILY #90 tabs 02/01/23 valsartan 80 mg tablet 80 mg PO DAILY #90 tabs 02/01/23 Allergies Allergy/AdvReac Type Severity Reaction Status Date / Time NSAIDS (Non-Steroidal AdvReac Intermediate GI bleed Verified 02/01/23 10:32 Anti-Inflamma Review of Systems Review of Systems Narrative: Pertinent positive and negative findings as per HPI Patient History Medical History Anemia (2010) Chronic renal failure, stage 3a Colon polyps (2010) Coronary artery disease (~12/2022) Diabetes mellitus (1998) Diabetic neuropathy Diverticular disease (2010) Essential hypertension (08/17/17) GERD (gastroesophageal reflux disease) (2008) GI bleeding (2010) Gout (2008) Hypogonadism in male Iron deficiency anemia Ischemic cardiomyopathy (~12/2022) Kidney stone on right side Obesity (BMI 30.0-34.9) Sigmoid diverticulitis Type 2 diabetes mellitus Uncontrolled type 2 diabetes mellitus Surgical History Anesthesia S/P coronary artery stent placement (01/02/23) Status post laparoscopy (2004) Family History Father Hypertension Alzheimer's disease Cancer Grandfather Heart disease Grandmother No problems noted. Mother Cancer Grandfather Heart disease Grandmother Diabetes mellitus Social History marital status: unmarried,single household members: none Smoking Status: Former smoker alcohol intake: former substance use type: marijuana Smoking Status: Former smoker alcohol intake frequency: a few times a month Substance Use Type: marijuana Exam Initial Vital Signs Initial Vital Signs: Vital Signs Pulse Rate 113 H 02/06/23 19:56 Respiratory Rate 21 02/06/23 19:56 Pulse Oximetry 96 02/06/23 19:56 General: Chronically ill-appearing, pale week able to answer direct questions. HEENT: Dry mucous membranes, normal sclera with reactive pupils, Neck: No JVD, supple Respiratory: Lungs are clear to auscultation, no wheezing no rales no rhonchi. Full and symmetrical air movement Cardiac: Tachycardic, no murmurs no bruits Abdomen: Soft, significant tenderness in the left lower quadrant without rebound or guarding, no flank pain Skin: Pale, Warm and dry, no rashes Neurologic: Globally weak but Grossly neurologically intact with no obvious asymmetries or abnormalities Extremities: No trauma, no lower extremity edema Psych: Cooperative, appropriate insight and affect Course Orders Ordered: ED Orders 02/06/23 20:08 GI Panel (Film Array) Stat 02/06/23 20:22 Complete Blood Count AUTO DIFF Stat Comprehensive Metabolic Panel Stat Lactate (Lactic Acid) Stat Lipase Stat Magnesium Stat Procalcitonin Stat 02/06/23 20:45 Urine Microscopic Stat 02/06/23 20:47 CT abdomen pelvis w con Stat 02/06/23 21:05 Blood Culture Stat 02/06/23 21:35 Type and Screen Stat Fidaxomicin (Fidaxomicin 200 Mg Tablet) 200 mg PO BID TEE Hydromorphone HCl (Hydromorphone 0.5 Mg Inj) 0.5 mg IV Q15MIN PRN PRN Reason: Pain, Sodium Chloride (Normal Saline 0.9%) 1,000 mls @ 125 mls/hr IV CONT TEE Metronidazole (Flagyl) 500 mg in 100 mls @ 100 mls/hr IV Q8H TEE Piperacillin Sod/Tazobactam (Sod 3.375 gm/ Sodium Chloride) 100 mls @ 25 mls/hr IV Q8H TEE Morphine Sulfate (Morphine 2 Mg/Ml Inj) 2 mg IV Q4HR PRN PRN Reason: pain Discontinued Medications Fidaxomicin (Fidaxomicin 200 Mg Tablet) 200 mg PO BID TEE Sodium Chloride (Normal Saline 0.9%) 1,000 mls @ 1,000 mls/hr IV BOLUS ONE Stop: 02/06/23 20:58 Last Infusion: 02/06/23 22:30 Dose: 0 mls/hr Documented By: Admin: 02/06/23 20:20 Dose: 1,000 mls/hr Documented By: Piperacillin Sod/Tazobactam (Sod 4.5 gm/ Sodium Chloride) 100 mls @ 200 mls/hr IV NOW ONE Stop: 02/06/23 20:47 Last Infusion: 02/06/23 22:15 Dose: 0 mls/hr Documented By: Admin: 02/06/23 21:39 Dose: 200 mls/hr Documented By: Metronidazole (Flagyl) 500 mg in 100 mls @ 100 mls/hr IV Q8H TEE Piperacillin Sod/Tazobactam (Sod 3.375 gm/ Sodium Chloride) 100 mls @ 25 mls/hr IV Q8H TEE Vancomycin HCl (Vancomycin 125 Mg Capsule) 125 mg PO NOW ONE Stop: 02/06/23 23:33 Last Admin: 02/07/23 00:17 Dose: 125 mg Documented By: JESSICA Vital Signs Vital signs: Vital Signs - 8 hr 02/06/23 19:57 02/06/23 19:56 02/06/23 20:00 Temperature 98.4 F Pulse Rate 112 H 113 H Respiratory Rate 20 21 Blood Pressure 132/77 133/71 Pulse Oximetry 97 96 Oxygen Delivery Method Room Air Oxygen Flow Rate 02/06/23 20:00 02/06/23 20:15 02/06/23 20:30 Temperature Pulse Rate 112 H 112 H Respiratory Rate 27 H 33 H Blood Pressure 126/63 Pulse Oximetry 96 94 Oxygen Delivery Method Oxygen Flow Rate 02/06/23 20:30 02/06/23 20:45 02/06/23 21:00 Temperature Pulse Rate 109 H 109 H Respiratory Rate 17 17 Blood Pressure 130/63 Pulse Oximetry 94 93 Oxygen Delivery Method Oxygen Flow Rate 02/06/23 21:00 02/06/23 21:21 02/06/23 21:30 Temperature Pulse Rate 110 H 113 H 109 H Respiratory Rate 28 H 25 H Blood Pressure Pulse Oximetry 95 95 Oxygen Delivery Method Oxygen Flow Rate 02/06/23 21:37 02/06/23 21:37 02/06/23 21:45 Temperature Pulse Rate 111 H 111 H Respiratory Rate 34 H 30 H Blood Pressure 150/76 H Pulse Oximetry 90 L 91 Oxygen Delivery Method Oxygen Flow Rate 02/06/23 22:00 02/06/23 22:00 02/06/23 22:15 Temperature Pulse Rate 109 H 107 H Respiratory Rate 24 24 Blood Pressure 154/75 H Pulse Oximetry 88 L Oxygen Delivery Method Oxygen Flow Rate 02/06/23 22:30 02/06/23 22:30 02/06/23 22:45 Temperature Pulse Rate 108 H 108 H Respiratory Rate 25 H 23 Blood Pressure 152/67 H Pulse Oximetry 91 92 Oxygen Delivery Method Nasal Cannula Oxygen Flow Rate 2 02/06/23 23:00 02/06/23 23:00 02/06/23 23:15 Temperature Pulse Rate 111 H 113 H Respiratory Rate 22 23 Blood Pressure 129/64 Pulse Oximetry 93 93 Oxygen Delivery Method Nasal Cannula Oxygen Flow Rate 2 Medical Decision Making Lab Data 02/06/23 20:22 02/06/23 20:22 Labs: Lab Results 02/06/23 02/06/23 02/06/23 Range/Units 20:08 20:22 20:22 WBC 20.6 H (4.5-11.0) X10^3/uL RBC 3.57 L (4.5-5.9) X10^6/uL Hgb 9.4 L (13.5-17.5) g/dL Hct 29.0 L (41-53) % MCV 81.1 (80-100) fL MCH 26.3 (26-34) PG MCHC 32.4 (30-36) % RDW 18.9 H (11.6-14.8) % Plt Count 434 H (150-400) X10^3/uL Neut % (Auto) 91.5 H (50-75) % Lymph % (Auto) 3.5 L (25-40) % [place] % (Auto) 4.3 (3-14) % Eos % (Auto) 0.1 L (2-4) % Baso % (Auto) 0.6 (0-2) % Neut # (Auto) 43934 H (4395-9392) /uL Lymph # (Auto) 700 L (4299-0362) /uL [place] # (Auto) 900 (0-900) /uL Eos # (Auto) 0 (0-450) /uL Baso # (Auto) 100 (0-100) /uL Sodium 138 (137-145) mmol/L Potassium 3.0 L D (3.4-5.1) mmol/L Chloride 105 (98-107) mmol/L Carbon Dioxide 22 (22-32) mmol/L BUN 22 H (9-20) mg/dL Creatinine 1.66 H (0.66-1.25) mg/dL Estimated GFR 44 L (>60) mL/min BUN/Creatinine Ratio 13.3 (6-22) Glucose 152 H (80-110) mg/dL Lactate (0.7-2.1) mmol/L Calcium 8.0 L (8.4-10.2) mg/dL Magnesium 1.9 (1.6-2.3) mg/dL Total Bilirubin 0.7 (0.2-1.3) mg/dL AST 22 (17-59) IU/L ALT 17 (<50) IU/L Alkaline Phosphatase 81 (38-126) U/L Total Protein 6.9 (6.3-8.2) g/dL Albumin 3.1 L (3.5-5.0) g/dL Globulin 3.8 (1.7-4.1) g/dL Albumin/Globulin Ratio 0.8 L (1.0-2.8) Lipase 11 L D (23-300) U/L Procalcitonin (<0.5) ng/mL Stl C. cayetanensis PCR Not detected (Not Detect) Stool Rotavirus (PCR) Not detected (Not Detect) Stool Adenovirus (PCR) Not detected (Not Detect) Stool Astrovirus (PCR) Not detected (Not Detect) Stool Cryptosporidium PCR Not detected (Not Detect) Stl E.coli Shiga Tox PCR Not detected (Not Detect) St Sh/Enteroin Ecoli PCR Not detected (Not Detect) Stool E coli O157 PCR Not Reportable Stl Enterotoxigenic E PCR Not detected (Not Detect) Stool EPEC (PCR) Not detected (Not Detect) Stl E. histolytica PCR Not detected (Not Detect) Stool Giardia Lamblia PCR Not detected (Not Detect) Stool Sapovirus (PCR) Not detected (Not Detect) Stl P. shigelloides PCR Not detected (Not Detect) St Y.enterocolitica PCR Not detected (Not Detect) Stool Vibrio (PCR) Not detected (Not Detect) Stl Vibrio cholerae PCR Not detected (Not Detect) Stl Enteroaggr Ecoli PCR Not detected (Not Detect) Stl Norovirus GI/GII PCR Not detected (Not Detect) Campylobacter (PCR) Not detected (Not Detect) C. difficile Tox (PCR) Detected H (Not Detect) Salmonella (PCR) Not detected (Not Detect) Blood Type Antibody Screen 02/06/23 02/06/23 02/06/23 Range/Units 20:22 20:22 21:35 WBC (4.5-11.0) X10^3/uL RBC (4.5-5.9) X10^6/uL Hgb (13.5-17.5) g/dL Hct (41-53) % MCV (80-100) fL MCH (26-34) PG MCHC (30-36) % RDW (11.6-14.8) % Plt Count (150-400) X10^3/uL Neut % (Auto) (50-75) % Lymph % (Auto) (25-40) % [place] % (Auto) (3-14) % Eos % (Auto) (2-4) % Baso % (Auto) (0-2) % Neut # (Auto) (1594-1111) /uL Lymph # (Auto) (4152-7715) /uL [place] # (Auto) (0-900) /uL Eos # (Auto) (0-450) /uL Baso # (Auto) (0-100) /uL Sodium (137-145) mmol/L Potassium (3.4-5.1) mmol/L Chloride (98-107) mmol/L Carbon Dioxide (22-32) mmol/L BUN (9-20) mg/dL Creatinine (0.66-1.25) mg/dL Estimated GFR (>60) mL/min BUN/Creatinine Ratio (6-22) Glucose (80-110) mg/dL Lactate 1.4 (0.7-2.1) mmol/L Calcium (8.4-10.2) mg/dL Magnesium (1.6-2.3) mg/dL Total Bilirubin (0.2-1.3) mg/dL AST (17-59) IU/L ALT (<50) IU/L Alkaline Phosphatase (38-126) U/L Total Protein (6.3-8.2) g/dL Albumin (3.5-5.0) g/dL Globulin (1.7-4.1) g/dL Albumin/Globulin Ratio (1.0-2.8) Lipase (23-300) U/L Procalcitonin 0.64 H (<0.5) ng/mL Stl C. cayetanensis PCR (Not Detect) Stool Rotavirus (PCR) (Not Detect) Stool Adenovirus (PCR) (Not Detect) Stool Astrovirus (PCR) (Not Detect) Stool Cryptosporidium PCR (Not Detect) Stl E.coli Shiga Tox PCR (Not Detect) St Sh/Enteroin Ecoli PCR (Not Detect) Stool E coli O157 PCR Stl Enterotoxigenic E PCR (Not Detect) Stool EPEC (PCR) (Not Detect) Stl E. histolytica PCR (Not Detect) Stool Giardia Lamblia PCR (Not Detect) Stool Sapovirus (PCR) (Not Detect) Stl P. shigelloides PCR (Not Detect) St Y.enterocolitica PCR (Not Detect) Stool Vibrio (PCR) (Not Detect) Stl Vibrio cholerae PCR (Not Detect) Stl Enteroaggr Ecoli PCR (Not Detect) Stl Norovirus GI/GII PCR (Not Detect) Campylobacter (PCR) (Not Detect) C. difficile Tox (PCR) (Not Detect) Salmonella (PCR) (Not Detect) Blood Type O Positive Antibody Screen Negative MDM Narrative Medical decision making narrative: CC: Profuse watery diarrhea, global weakness. This is an acute problem uncertain prognosis Complicating co-morbidities: Coronary artery disease with STEMI and stent in December of this year, GI bleed last week, continued and worsened diverticulitis, chronic kidney disease, hypertension hyperlipidemia Data collected from: patient, medics Social determinants of health that may influence the patients condition: Patient lives independently Medical records reviewed: Discharge summary from January 19 Differential considered: C diff, surgical abdomen, diverticulitis, sepsis Exam documented above, pertinent findings include: Moderate dehydration, left lower quadrant pain with mild guarding, pale skin otherwise unremarkable Lab Test results independently reviewed as above. Pertinent findings: CBC with white count at 20.6. Chronic anemia at 9.4 and 29.0 Chemistries so hypokalemia at 3.0, chronic kidney disease with creatinine at 1.6 and GFR 44. Lactic acid is 1.4 Lipase is unremarkable Procalcitonin is elevated at 0.64 Troponin Independently reviewed EKG as above Imaging studies independently reviewed: CT scan of the abdomen and pelvis shows moderately severe acute diverticulitis Consultations: Dr Chisholm will admit patient. Treatments: Oral vanco as oral Dificid is not available without pharmacy in-house. Zosyn and Flagyl for his worsening diverticulitis. Pain medication and fluids. No evidence of sepsis at this time. Re-evaluations: Feeling moderately better, understands need for admission. Stable at this time Discussion: 72-year-old gentleman with recent STEMI, GI bleed and now diverticulitis worsening despite oral Cipro and metronidazole and Clostridium difficile. He is mild hypokalemia and weakness secondary to moderate dehydration from his C difficile. He is started on IV antibiotics for the worsening diverticulitis and oral antibiotics for the C diff. Care is reviewed with admitting doctor and patient is safe for transfer to the floor Discharge Plan Departure Patient Disposition: Admitted As Inpatient Clinical Impression: Diverticulitis, Clostridium difficile diarrhea, Acute hypokalemia, Chronic renal insufficiency Admit Date/Time: 02/07/23 00:25 Admit Provider: Nomi Chisholm
[2023-02-06] MEDS: SODIUM CHLORIDE 0.9% 1,000 ML 1000 ML IV (20:20)
[2023-02-06 20:31] LABS: Add Manual Diff / Slide Review NO; Basophils Absolute Auto 100 /uL (0-100); Basophils Percent Auto 0.6 % (0-2); Eosinophils Absolute Auto 0 /uL (0-450); Eosinophils Percent Auto 0.1 % (2-4); Hemoglobin 9.4 g/dL (13.5-17.5); Lymphocytes Absolute Auto 700 /uL (1100-4500); Lymphocytes Percent Auto 3.5 % (25-40); Mean Corpuscular HGB Conc 32.4 % (30-36); Mean Corpuscular Hemoglobin 26.3 PG (26-34); Mean Corpuscular Volume 81.1 fL (80-100); Monocytes Absolute Auto 900 /uL (0-900); Monocytes Percent Auto 4.3 % (3-14); Neutrophils Absolute Auto 18800 /uL (1500-7000); Neutrophils Percent Auto 91.5 % (50-75); Platelet Count 434 X10^3/uL (150-400); Red Blood Cell Count 3.57 X10^6/uL (4.5-5.9); Red Cell Distribution Width 18.9 % (11.6-14.8); White Blood Cell Count 20.6 X10^3/uL (4.5-11.0)
--- NOTE | 2023-02-06 20:47 | DI.CT.S_ITS ---
PROCEDURE: CT ABDOMEN PELVIS W CON INDICATIONS: abdominal pain, leukocytosis, prolific diarrhea (- c diff) TECHNIQUE: After the administration of intravenous contrast, axial sections acquired from the lung bases to the pubic symphysis. Coronal and sagittal reformats were performed. For radiation dose reduction, the following was used: automated exposure control, adjustment of mA and/or kV according to patient size. COMPARISON: [facility], CT, CT ABDOMEN PELVIS W CON, 01/16/2023, 15:28. [facility], CT, CT ABDOMEN PELVIS W CON, 10/18/2020, 16:08. FINDINGS: Image quality: Excellent. Lung bases: Unremarkable except for posterior right lung base atelectasis or mild aspiration/pneumonia and a similar pattern is seen on the left. This is considered more likely to be registered representative of atelectasis.. Heart: No significant findings. ABDOMEN: Liver: Unremarkable. Gallbladder: Normal. Biliary ducts: Unremarkable. Pancreas: Unremarkable. Spleen: Unremarkable. Adrenal Glands: Unremarkable. Kidneys and Ureters: Unremarkable. Stomach and Bowel: Stomach, small bowel loops, and colon are unremarkable. Peritoneum: No abnormal intraperitoneal fluid. No free air. Ventral Wall: No hernias. Abdominal Nodes: No retroperitoneal or mesenteric adenopathy by size criteria. Vessels: Aorta and inferior vena cava are normal in size. PELVIS: Pelvic Organs: Unremarkable. Bladder: Unremarkable. Pelvic Nodes: No enlarged lymph nodes. Miscellaneous: No hernias are seen. Diverticulosis becomes progressively more prominent as the sigmoid colon is reached with moderately severe diverticulosis and superimposed acute diverticulitis involving the proximal half of the sigmoid colon. A peridiverticular abscess is not seen. Prominent adjacent pericolonic edema is present, however. Bones: Unremarkable. IMPRESSION: Moderately severe acute diverticulitis involving the proximal half of the sigmoid colon, without peridiverticular abscess. Bibasilar lung consolidation is mild and is considered more likely a manifestation of atelectasis than pneumonia or aspiration. Dictated by: José Lewis M.D. on 02/06/2023 at 21:55 Approved by: José Lewis M.D. on 02/06/2023 at 21:57
[2023-02-06 20:48] LABS: Alanine Aminotransferase 17 IU/L (<50); Albumin 3.1 g/dL (3.5-5.0); Albumin Globulin Ratio 0.8 (1.0-2.8); Alkaline Phosphatase 81 U/L (38-126); Aspartate Aminotransferase 22 IU/L (17-59); BUN Creatinine Ratio 13.3 (6-22); Bilirubin Total 0.7 mg/dL (0.2-1.3); Blood Urea Nitrogen 22 mg/dL (9-20); Carbon Dioxide 22 mmol/L (22-32); Chloride 105 mmol/L (98-107); Estimated Glomerular Filt Rate 44 mL/min (>60); Globulin 3.8 g/dL (1.7-4.1); Glucose 152 mg/dL (80-110); HEMOLYSIS 18 (0-50); Lipase 11 U/L (23-300); Magnesium 1.9 mg/dL (1.6-2.3); Sodium 138 mmol/L (137-145); Total Protein 6.9 g/dL (6.3-8.2)
[2023-02-06 20:49] LABS: Lactate (Lactic Acid) 1.4 mmol/L (0.7-2.1)
[2023-02-06 21:16] LABS: Procalcitonin 0.64 ng/mL (<0.5)
[2023-02-06] MEDS: PIPERACILLIN/TAZO 4.5 GM in SODIUM CHLORIDE 0.9% 100 ML IV (21:39)
[2023-02-06 22:01] LABS: Campylobacter Not Detected (Not Detect); Clostridium difficile toxin AB Detected (Not Detect); Enteroaggregative E.coli Not Detected (Not Detect); Enteropathogenic E.coli Not Detected (Not Detect); Enterotoxigenic E.coli It/st Not Detected (Not Detect); Plesiomonsa shigelloides Not Detected (Not Detect); Salmonella Not Detected (Not Detect); Shiga-like toxin-prod E.coli Not Detected (Not Detect); Vibrio Not Detected (Not Detect); Vibrio cholerae Not Detected (Not Detect); Yersinia enterocolitica Not Detected (Not Detect)
[2023-02-06 22:02] LABS: Adenovirus F 40/41 Not Detected (Not Detect); Astrovirus Not Detected (Not Detect); Cryptosporidium Not Detected (Not Detect); Cyclospora cayetanensis Not Detected (Not Detect); Entamoeba histolytica Not Detected (Not Detect); Giardia lamblia Not Detected (Not Detect); Norovirus GI/GII Not Detected (Not Detect); Rotavirus A Not Detected (Not Detect); Sapovirus Not Detected (Not Detect); Shigella/Enteroinvasive E.coli Not Detected (Not Detect)
--- NOTE | 2023-02-06 23:31 | PC.NURSE ---
Contacted coordinator for Dificid. Reports not available until tomorrow. notified.
--- NOTE | 2023-02-06 23:36 | PC.NURSE ---
Safe handoff report to ZORA Uriarte. Pt resting comfortably, A&Ox4, reports pain has improved.
[2023-02-07] VITALS (15 sets, daily range): BP systolic 98–121; BP diastolic 50–69; PULSE 87–109; RESP 12–33; TEMP 36.6–36.9; O2SAT 89–96; BMI 27.1
[2023-02-07] MEDS: VANCOMYCIN 125 MG CAPSULE PO (00:17)
[2023-02-07] MEDS: SODIUM CHLORIDE 0.9% 1,000 ML 125 ML IV ×2 (02:34→21:30)
[2023-02-07] MEDS: POTASSIUM CHLORIDE IN WATER 10 MEQ/100 ML PIGGYBACK 100 MEQ IV ×2 (02:35→03:58)
[2023-02-07] MEDS: metroNIDAZOLE 500 MG/100 ML PIGGYBACK 100 MG IV ×2 (02:35→08:05)
[2023-02-07] MEDS: POTASSIUM CHLORIDE 20 MEQ TAB 40 MEQ PO (02:36)
[2023-02-07 02:44] LABS: Troponin I 0.022 ng/mL (0.01-0.034)
[2023-02-07] MEDS: PIPERACILLIN/TAZO 3.375 GM in SODIUM CHLORIDE 0.9% 100 ML IV (03:58)
--- NOTE | 2023-02-07 05:18 | PC.NURSE ---
Patient arrive in room at 1:30, reports to weak to transfer self to bed. Reports not having eaten in a couple days. Pt report LLQ pain, declines intervention. Multiple IV's to infuse, Able to swallow 3 halves of potassium before stomach upset, patient declined last half a tab. Inc of mucus stool, small blister surrounded by non-blanchable erythema and excoriation to coccyx. Barrier cream applied. 0400 - Pt c/o pain to IV site left AC, potassium infusing, IV site flushes without difficulty, pain resolves when site flushed. Decrease rate, discomfort returns. IV site to right AC leaking, D/C'd. New IV to right forearm. Pt request all rails up on bed.
[2023-02-07] MEDS: POTASSIUM CHLORIDE IN WATER 10 MEQ/100 ML PIGGYBACK 75 MEQ IV ×2 (05:59→07:24)
[2023-02-07] MEDS: FIDAXOMICIN 200 MG TABLET PO ×2 (09:03→21:30)
[2023-02-07] MEDS: METOPROLOL ER 50 MG TABLET PO (09:03)
[2023-02-07] MEDS: VANCOMYCIN 125 MG CAPSULE 250 MG PO ×2 (11:03→21:29)
--- NOTE | 2023-02-07 11:09 | PM.HP.1 ---
History of Present Illness History of Present Illness Date Patient Seen: 02/07/23 Time Patient Seen: 11:09 Chief complaint: abd pain/weakness. Narrative: chief complaint diarrhea This is a pleasant 72-year-old gentleman who generally sees Dr. Owen. He has a history of coronary syndrome STEMI with stent 1 month ago at [facility] history of GI bleed with hospitalization 2 weeks ago at [place] with acute diverticulitis. He also has diabetes hypertension and chronic kidney disease. He presented to this facility via EMS yesterday complaining of profuse diarrhea and weakness unable to leave the upper floor of his home for the last couple of days and unable to take his medications. Found to be positive for C diff is having multiple blowouts per day started on antibiotics still feeling generally weak with tender lower left quadrant reports manageable 5/10 pain not much appetite no nausea PFSH Medical History Anemia (2010) Chronic renal failure, stage 3a Colon polyps (2010) Coronary artery disease (~12/2022) Diabetes mellitus (1998) Diabetic neuropathy Diverticular disease (2010) Essential hypertension (08/17/17) GERD (gastroesophageal reflux disease) (2008) GI bleeding (2010) Gout (2008) Hypogonadism in male Iron deficiency anemia Ischemic cardiomyopathy (~12/2022) Kidney stone on right side Obesity (BMI 30.0-34.9) Sigmoid diverticulitis Type 2 diabetes mellitus Uncontrolled type 2 diabetes mellitus Surgical History Anesthesia S/P coronary artery stent placement (01/02/23) Status post laparoscopy (2004) Family History Father Hypertension Alzheimer's disease Cancer Grandfather Heart disease Grandmother No problems noted. Mother Cancer Grandfather Heart disease Grandmother Diabetes mellitus Social History marital status: unmarried,single household members: none Smoking Status: Former smoker alcohol intake: former substance use type: marijuana Meds Home Medications and Allergies Home Medications Medication Instructions Recorded Confirmed Type chondroitin sulfate A 250 mg 1 mg PO DAILY ##0 09/07/17 02/07/23 History capsule (Chondroitin Sulfate) glucosamine sulfate 500 mg tablet 750 mg PO QDAY ##0 09/07/17 02/07/23 History (Cidatrine (glucosamine)) blood-glucose meter #1 ea 05/23/20 02/07/23 Rx glipizide 5 mg tablet 5 mg PO QPM #90 tabs 05/18/22 02/07/23 Rx blood sugar diagnostic (Blood #100 ea 10/27/22 02/07/23 Rx Glucose Test strips) lancets 30 gauge (TRUEplus Lancets) #100 ea 10/27/22 02/07/23 Rx semaglutide 0.25 mg or 0.5 mg (2 0.5 mg (0.4 mL) SUBCUT QWEEK #6 mL 12/28/22 02/07/23 Rx mg/1.5 mL) subcutaneous pen injector (Ozempic) aspirin 81 mg tablet,delayed 81 mg PO DAILY 01/15/23 02/07/23 History release ferrous sulfate 325 mg (65 mg 325 mg PO DAILY 01/15/23 02/07/23 History iron) tablet empagliflozin 10 mg tablet 10 mg PO DAILY #90 tabs 01/19/23 02/07/23 Rx (Jardiance) amlodipine 10 mg tablet 10 mg PO QDAY #90 tabs 02/01/23 02/07/23 Rx atorvastatin 80 mg tablet 80 mg PO DAILY #90 tabs 02/01/23 02/07/23 Rx famotidine 40 mg tablet 40 mg PO DAILY #90 tabs 02/01/23 02/07/23 Rx metoprolol succinate 50 mg 50 mg PO DAILY #90 tabs 02/01/23 02/07/23 Rx tablet,extended release 24 hr prasugrel 10 mg tablet 10 mg PO DAILY #90 tabs 02/01/23 02/07/23 Rx valsartan 80 mg tablet 80 mg PO DAILY #90 tabs 02/01/23 02/07/23 Rx Allergies Allergy/AdvReac Type Severity Reaction Status Date / Time NSAIDS (Non-Steroidal AdvReac Intermediate GI bleed Verified 02/01/23 10:32 Anti-Inflamma Review of Systems Review of Systems Narrative: All systems reviewed and negative except as otherwise documented in HPI Exam Vital Signs (past 8 hours): - 02/07/23 05:05 02/07/23 05:05 07/16/23 05:07 Temperature 98.4 F Pulse Rate 87 89 Respiratory Rate 23 31 H Blood Pressure 112/58 L Pulse Oximetry 94 93 Oxygen Delivery Method Oxygen Flow Rate 2 2 2 02/07/23 07:00 02/07/23 09:33 02/07/23 10:00 Temperature 97.8 F Pulse Rate 94 H 92 H Respiratory Rate 18 Blood Pressure 110/50 L 110/50 L Pulse Oximetry 96 Oxygen Delivery Method Room Air Oxygen Flow Rate 0 Oxygen Delivery Method Room Air Oxygen Flow Rate 0 Narrative Exam Narrative: Pale alert lying in hospital bed Const Other: Then Resp Other: Unlabored breathing clear to auscultation bilaterally Cardio Other: Regular rate S1-S2 GI Other: Left lower quadrant tender to palpation subdued bowel sounds Neuro Other: Alert awake oriented x3 Extrem Other: Moving all extremities Objective Labs 02/06/23 20:22 02/06/23 20:22 Labs: Laboratory Results - last 24 hr 02/06/23 02/06/23 02/06/23 20:08 20:22 20:22 WBC 20.6 H RBC 3.57 L Hgb 9.4 L Hct 29.0 L MCV 81.1 MCH 26.3 MCHC 32.4 RDW 18.9 H Plt Count 434 H Neut % (Auto) 91.5 H Lymph % (Auto) 3.5 L [place] % (Auto) 4.3 Eos % (Auto) 0.1 L Baso % (Auto) 0.6 Neut # (Auto) 01275 H Lymph # (Auto) 700 L [place] # (Auto) 900 Eos # (Auto) 0 Baso # (Auto) 100 Sodium 138 Potassium 3.0 L D Chloride 105 Carbon Dioxide 22 BUN 22 H Creatinine 1.66 H Estimated GFR 44 L BUN/Creatinine Ratio 13.3 Glucose 152 H Lactate Calcium 8.0 L Magnesium 1.9 Total Bilirubin 0.7 AST 22 ALT 17 Alkaline Phosphatase 81 Troponin I Total Protein 6.9 Albumin 3.1 L Globulin 3.8 Albumin/Globulin Ratio 0.8 L Lipase 11 L D Procalcitonin Stl C. cayetanensis PCR Not detected Stool Rotavirus (PCR) Not detected Stool Adenovirus (PCR) Not detected Stool Astrovirus (PCR) Not detected Stool Cryptosporidium PCR Not detected Stl E.coli Shiga Tox PCR Not detected St Sh/Enteroin Ecoli PCR Not detected Stool E coli O157 PCR Not Reportable Stl Enterotoxigenic E PCR Not detected Stool EPEC (PCR) Not detected Stl E. histolytica PCR Not detected Stool Giardia Lamblia PCR Not detected Stool Sapovirus (PCR) Not detected Stl P. shigelloides PCR Not detected St Y.enterocolitica PCR Not detected Stool Vibrio (PCR) Not detected Stl Vibrio cholerae PCR Not detected Stl Enteroaggr Ecoli PCR Not detected Stl Norovirus GI/GII PCR Not detected Campylobacter (PCR) Not detected C. difficile Tox (PCR) Detected H Salmonella (PCR) Not detected Blood Type Antibody Screen 02/06/23 02/06/23 02/06/23 20:22 20:22 21:35 WBC RBC Hgb Hct MCV MCH MCHC RDW Plt Count Neut % (Auto) Lymph % (Auto) [place] % (Auto) Eos % (Auto) Baso % (Auto) Neut # (Auto) Lymph # (Auto) [place] # (Auto) Eos # (Auto) Baso # (Auto) Sodium Potassium Chloride Carbon Dioxide BUN Creatinine Estimated GFR BUN/Creatinine Ratio Glucose Lactate 1.4 Calcium Magnesium Total Bilirubin AST ALT Alkaline Phosphatase Troponin I Total Protein Albumin Globulin Albumin/Globulin Ratio Lipase Procalcitonin 0.64 H Stl C. cayetanensis PCR Stool Rotavirus (PCR) Stool Adenovirus (PCR) Stool Astrovirus (PCR) Stool Cryptosporidium PCR Stl E.coli Shiga Tox PCR St Sh/Enteroin Ecoli PCR Stool E coli O157 PCR Stl Enterotoxigenic E PCR Stool EPEC (PCR) Stl E. histolytica PCR Stool Giardia Lamblia PCR Stool Sapovirus (PCR) Stl P. shigelloides PCR St Y.enterocolitica PCR Stool Vibrio (PCR) Stl Vibrio cholerae PCR Stl Enteroaggr Ecoli PCR Stl Norovirus GI/GII PCR Campylobacter (PCR) C. difficile Tox (PCR) Salmonella (PCR) Blood Type O Positive Antibody Screen Negative 02/07/23 02:15 WBC RBC Hgb Hct MCV MCH MCHC RDW Plt Count Neut % (Auto) Lymph % (Auto) [place] % (Auto) Eos % (Auto) Baso % (Auto) Neut # (Auto) Lymph # (Auto) [place] # (Auto) Eos # (Auto) Baso # (Auto) Sodium Potassium Chloride Carbon Dioxide BUN Creatinine Estimated GFR BUN/Creatinine Ratio Glucose Lactate Calcium Magnesium Total Bilirubin AST ALT Alkaline Phosphatase Troponin I 0.022 Total Protein Albumin Globulin Albumin/Globulin Ratio Lipase Procalcitonin Stl C. cayetanensis PCR Stool Rotavirus (PCR) Stool Adenovirus (PCR) Stool Astrovirus (PCR) Stool Cryptosporidium PCR Stl E.coli Shiga Tox PCR St Sh/Enteroin Ecoli PCR Stool E coli O157 PCR Stl Enterotoxigenic E PCR Stool EPEC (PCR) Stl E. histolytica PCR Stool Giardia Lamblia PCR Stool Sapovirus (PCR) Stl P. shigelloides PCR St Y.enterocolitica PCR Stool Vibrio (PCR) Stl Vibrio cholerae PCR Stl Enteroaggr Ecoli PCR Stl Norovirus GI/GII PCR Campylobacter (PCR) C. difficile Tox (PCR) Salmonella (PCR) Blood Type Antibody Screen Assessment & Plan Assessment & Plan narrative: #c diff diarrhea, acute, present on admission #diverticulitis Continue oral fidaxomicin and add oral vancomycin. stop IV abx continue IV hydration encourage oral intake still having multiple blowouts this morning need to get this under better control. Treatment of diverticulitis may have been inciting event. encourage po intake continue fluids. #hx of stent/IN Continue home meds stable #hx of GI bleed Trend hemoglobin stable for now #NIDDM Continue home meds with SSI and fingersticks #hypertension Stable continue home meds with as needed hydralazine dispo: admit and get control of cdiff severity: complex patient with multiple recent admissions and unstable infectious process. d/w Dr. Granados in ED. allergies: NSAIDs MDM: sister PCP: Brayden Code: DNR Quality VTE Deep Vein Thrombosis/Pulmonary Embolism Present on Admission: No
[2023-02-07] MEDS: MORPHINE 2 MG/ML INJ IV (11:29)
[2023-02-07] MEDS: AMLODIPINE 5 MG TABLET 10 MG PO (14:18)
[2023-02-07] MEDS: FAMOTIDINE 20 MG TABLET 40 MG PO (14:18)
[2023-02-07] MEDS: VALSARTAN 80 MG TABLET PO (14:18)
[2023-02-07] MEDS: glipiZIDE 5 MG TABLET PO (17:16)
[2023-02-08] VITALS (7 sets, daily range): BP systolic 127–153; BP diastolic 69–77; PULSE 79–96; RESP 16–30; TEMP 36.4–37.2; O2SAT 91–97
[2023-02-08 06:46] LABS: Add Manual Diff / Slide Review NO; Basophils Absolute Auto 0 /uL (0-100); Basophils Percent Auto 0.2 % (0-2); Eosinophils Absolute Auto 200 /uL (0-450); Eosinophils Percent Auto 1.5 % (2-4); Hemoglobin 9.2 g/dL (13.5-17.5); Lymphocytes Absolute Auto 700 /uL (1100-4500); Lymphocytes Percent Auto 5.4 % (25-40); Mean Corpuscular HGB Conc 32.9 % (30-36); Mean Corpuscular Hemoglobin 26.6 PG (26-34); Mean Corpuscular Volume 80.9 fL (80-100); Monocytes Absolute Auto 700 /uL (0-900); Monocytes Percent Auto 5.8 % (3-14); Neutrophils Absolute Auto 11000 /uL (1500-7000); Neutrophils Percent Auto 87.1 % (50-75); Platelet Count 429 X10^3/uL (150-400); Red Blood Cell Count 3.46 X10^6/uL (4.5-5.9); Red Cell Distribution Width 18.2 % (11.6-14.8); White Blood Cell Count 12.7 X10^3/uL (4.5-11.0)
[2023-02-08 06:57] LABS: Alanine Aminotransferase 14 IU/L (<50); Albumin 2.6 g/dL (3.5-5.0); Albumin Globulin Ratio 0.7 (1.0-2.8); Alkaline Phosphatase 70 U/L (38-126); Aspartate Aminotransferase 17 IU/L (17-59); Bilirubin Total 0.3 mg/dL (0.2-1.3); Blood Urea Nitrogen 15 mg/dL (9-20); Calcium 7.3 mg/dL (8.4-10.2); Carbon Dioxide 21 mmol/L (22-32); Chloride 111 mmol/L (98-107); Estimated Glomerular Filt Rate 55 mL/min (>60); Globulin 3.6 g/dL (1.7-4.1); Glucose 97 mg/dL (80-110); HEMOLYSIS < 15 (0-50); Sodium 141 mmol/L (137-145); Total Protein 6.2 g/dL (6.3-8.2)
[2023-02-08 07:23] LABS: Potassium 2.4 mmol/L (3.4-5.1)
--- NOTE | 2023-02-08 07:35 | PM.PN.1 ---
Subjective Subjective Date Patient Seen: 02/08/23 Time Patient Seen: 07:35 Interval history: Patient's?admission?and?hospital?course?reviewed?with?? Patient?with?ongoing?diarrhea?secondary?to?C?diff,?likely?induced?by?treatment?for?his?diverticulitis?(despite?that?treatment?including?metronidazole) Here?now?with?volume?depletion/dehydration?and?ongoing?diarrhea.??Now?on?to?oral?antibiotics?to?treat?his?C?diff?colitis? Patient reports feeling better he thinks most likely given that he is no longer as dehydrated as he was Frequency of stooling and volume seems to have decreased as well Exam Vital Signs (past 8 hours): - 02/08/23 00:00 02/08/23 02:24 02/08/23 04:00 Temperature 98.3 F 98.0 F Pulse Rate 90 81 79 Respiratory Rate 24 16 Blood Pressure 129/70 127/70 Pulse Oximetry 92 95 97 Oxygen Delivery Method Nasal Cannula Oxygen Flow Rate 2 2 2 Fraction of Inspired Oxygen 28 Fraction of Inspired Oxygen 28 SaO2/FiO2 Ratio 339 Oxygen Delivery Method Nasal Cannula Oxygen Flow Rate 2 Objective Labs 02/08/23 06:23 02/08/23 06:23 Labs: Laboratory Results - last 24 hr 02/08/23 02/08/23 06:23 06:23 WBC 12.7 H RBC 3.46 L Hgb 9.2 L Hct 28.0 L MCV 80.9 MCH 26.6 MCHC 32.9 RDW 18.2 H Plt Count 429 H Neut % (Auto) 87.1 H Lymph % (Auto) 5.4 L [place] % (Auto) 5.8 Eos % (Auto) 1.5 L Baso % (Auto) 0.2 Neut # (Auto) 69970 H Lymph # (Auto) 700 L [place] # (Auto) 700 Eos # (Auto) 200 Baso # (Auto) 0 Sodium 141 Potassium 2.4 L* Chloride 111 H Carbon Dioxide 21 L BUN 15 Creatinine 1.36 H Estimated GFR 55 L BUN/Creatinine Ratio 11.0 Glucose 97 Calcium 7.3 L Total Bilirubin 0.3 AST 17 ALT 14 Alkaline Phosphatase 70 Total Protein 6.2 L Albumin 2.6 L Globulin 3.6 Albumin/Globulin Ratio 0.7 L [facility] Medical History Anemia (2010) Chronic renal failure, stage 3a Colon polyps (2010) Coronary artery disease (~12/2022) Diabetes mellitus (1998) Diabetic neuropathy Diverticular disease (2010) Essential hypertension (08/17/17) GERD (gastroesophageal reflux disease) (2008) GI bleeding (2010) Gout (2008) Hypogonadism in male Iron deficiency anemia Ischemic cardiomyopathy (~12/2022) Kidney stone on right side Obesity (BMI 30.0-34.9) Sigmoid diverticulitis Type 2 diabetes mellitus Uncontrolled type 2 diabetes mellitus Surgical History Anesthesia S/P coronary artery stent placement (01/02/23) Status post laparoscopy (2004) Family History Father Hypertension Alzheimer's disease Cancer Grandfather Heart disease Grandmother No problems noted. Mother Cancer Grandfather Heart disease Grandmother Diabetes mellitus Social History marital status: unmarried,single household members: none Smoking Status: Former smoker alcohol intake: former substance use type: marijuana Assessment & Plan Assessment & Plan narrative: 1. C diff colitis-continue with the oral antibiotics. Some clinical improvement already hopefully this continues 2. Fluids/electrolytes/nutrition-I think it is okay to advance his diet to a low residue diet to help protect his colon. Obviously needs potassium replacement which I will give both parenterally as well as orally. Continue with pretty aggressive fluid resuscitation. Patient is making some urine. He is feeling better. 3. History of GI bleed-GI bleed thought to be secondary maybe 2 diverticulitis plus his anticoagulation. No evidence of bleeding at this time despite the active C diff colitis. Continue his usual medications specially given the presence of a relatively fresh drug-eluting stent in his coronary artery 4. Status post [place]/PCI with DB stent-continue usual medications including his antiplatelet therapies 5. Diabetes-will need to continue to monitor his numbers. Overall patient is minimally improved will need at least a couple more days here in the hospital I believe. Quality VTE Deep Vein Thrombosis/Pulmonary Embolism Present on Admission: No
[2023-02-08] MEDS: POTASSIUM CHLORIDE 20 MEQ TAB PO (07:55)
[2023-02-08] MEDS: POTASSIUM CHLORIDE IN WATER 10 MEQ/100 ML PIGGYBACK 100 MEQ IV ×8 (07:55→15:54)
[2023-02-08] MEDS: FIDAXOMICIN 200 MG TABLET PO ×2 (08:19→21:13)
[2023-02-08] MEDS: METOPROLOL ER 50 MG TABLET PO (08:20)
[2023-02-08] MEDS: ATORVASTATIN 20 MG TABLET 80 MG PO (08:20)
[2023-02-08] MEDS: FERROUS SULFATE 325 MG TABLET PO (08:20)
[2023-02-08] MEDS: ASPIRIN EC 81 MG TABLET PO (08:20)
[2023-02-08] MEDS: AMLODIPINE 5 MG TABLET 10 MG PO (08:21)
[2023-02-08] MEDS: ENOXAPARIN 40 MG/0.4 ML SYRINGE SUBCUT (08:21)
[2023-02-08] MEDS: VALSARTAN 80 MG TABLET PO (08:22)
[2023-02-08] MEDS: FAMOTIDINE 20 MG TABLET 40 MG PO (08:23)
[2023-02-08] MEDS: VANCOMYCIN 125 MG CAPSULE 250 MG PO ×2 (08:37→20:17)
[2023-02-08 15:21] LABS: Bacteria Urine Occasional (0-1); Culture Indicated Urine Cult Not Indicated; RBC Urine 0-1/HPF (0-5/HPF); Squamous Epithelial Cell Urine 1-5 /HPF (0-5/HPF); WBC Urine 0-1/HPF (0-5/HPF)
--- NOTE | 2023-02-08 15:53 | OT.IPNOTE ---
Attempted OT eval and pt states not today and still having lots of bouts of diarrhea. Able to get pt prior level of care, no charge.
--- NOTE | 2023-02-08 18:20 | PT-IP ANOTE ---
OT attempted eval and pt states not today and still having lots of bouts of diarrhea so hold until tomorrow. PT to check in for eval tomorrow AM
[2023-02-08] MEDS: FAMOTIDINE 20 MG TABLET PO (20:20)
[2023-02-08] MEDS: glipiZIDE 5 MG TABLET PO (20:29)
[2023-02-08] MEDS: SODIUM CHLORIDE 0.9% 1,000 ML 125 ML IV (22:28)
[2023-02-09] VITALS (25 sets, daily range): BP systolic 138–169; BP diastolic 81–96; PULSE 75–110; RESP 16–24; TEMP 36.3–36.9; O2SAT 89–99
[2023-02-09] MEDS: SODIUM CHLORIDE 0.9% 1,000 ML 125 ML IV ×3 (06:07→22:04)
[2023-02-09 06:50] LABS: BUN Creatinine Ratio 10.2 (6-22); Blood Urea Nitrogen 12 mg/dL (9-20); Calcium 7.3 mg/dL (8.4-10.2); Carbon Dioxide 22 mmol/L (22-32); Chloride 112 mmol/L (98-107); Estimated Glomerular Filt Rate > 60 mL/min (>60); Glucose 127 mg/dL (80-110); HEMOLYSIS < 15 (0-50); Potassium 2.8 mmol/L (3.4-5.1); Sodium 140 mmol/L (137-145)
--- NOTE | 2023-02-09 07:37 | PM.PN.1 ---
Subjective Subjective Date Patient Seen: 02/09/23 Time Patient Seen: 07:38 Interval history: Patient?reports?he?thinks?his?bowels?are?improving.??The?quality?of?the?stool?is?changing?does?not?appear?to?be?quite?so?proficient?perhaps?solidifying?although?that?would?be?an?extreme?statement.??He?is?able?to?make?it?from?the?bed?to?the?commode?wi thout?leaking?which?is?new?and?better He?however?feels?like?his?breathing?is?a?problem?he?is?breathing?shallowly?and?has?required?oxygen?overnight?with?O2?saturation?of?91%?at?a?minimum Also?feels?somewhat?anxious?jittery?inside?somehow.??Feels?a?bit?irritable?as?well.?? Exam Vital Signs (past 8 hours): - 02/09/23 00:00 02/09/23 00:12 02/09/23 04:00 Temperature 98.3 F 98.1 F Pulse Rate 104 H 95 H 98 H Respiratory Rate 19 24 Blood Pressure 159/91 H 139/83 Pulse Oximetry 92 92 94 Oxygen Delivery Method Nasal Cannula Oxygen Flow Rate 2 2 2 Fraction of Inspired Oxygen 28 Fraction of Inspired Oxygen 28 SaO2/FiO2 Ratio 328 Oxygen Delivery Method Nasal Cannula Oxygen Flow Rate 2 Objective Labs 02/08/23 06:23 02/09/23 05:54 Labs: Laboratory Results - last 24 hr 02/08/23 02/09/23 14:59 05:54 Sodium 140 Potassium 2.8 L Chloride 112 H Carbon Dioxide 22 BUN 12 Creatinine 1.18 Estimated GFR > 60 BUN/Creatinine Ratio 10.2 Glucose 127 H Calcium 7.3 L Urine RBC 0-1/hpf Urine WBC 0-1/hpf Ur Squamous Epith Cells 1-5 /hpf Urine Bacteria Occasional (0-1) Ur Culture Indicated? Cult not indicated [facility] Medical History Anemia (2010) Chronic renal failure, stage 3a Colon polyps (2010) Coronary artery disease (~12/2022) Diabetes mellitus (1998) Diabetic neuropathy Diverticular disease (2010) Essential hypertension (08/17/17) GERD (gastroesophageal reflux disease) (2009) GI bleeding (2010) Gout (2008) Hypogonadism in male Iron deficiency anemia Ischemic cardiomyopathy (~12/2022) Kidney stone on right side Obesity (BMI 30.0-34.9) Sigmoid diverticulitis Type 2 diabetes mellitus Uncontrolled type 2 diabetes mellitus Surgical History Anesthesia S/P coronary artery stent placement (01/02/23) Status post laparoscopy (2004) Family History Father Hypertension Alzheimer's disease Cancer Grandfather Heart disease Grandmother No problems noted. Mother Cancer Grandfather Heart disease Grandmother Diabetes mellitus Social History marital status: unmarried,single household members: none Smoking Status: Former smoker alcohol intake: former substance use type: marijuana Assessment & Plan Assessment & Plan narrative: 1. C diff colitis-continue with the oral antibiotics. Some clinical improvement already hopefully this continues.??No?reason?to?make?any?changes?today 2. Fluids/electrolytes/nutrition-continue?with?IV?fluids?as?well?as?potassium?replacement.??Will?plan?to?recheck?potassium?and?check?magnesium?this?afternoon.??Going?to?go?ahead?and?order?some?oral?magnesium?as?well. 3. History of GI bleed-GI bleed thought to be secondary maybe 2 diverticulitis plus his anticoagulation. No evidence of bleeding at this time despite the active C diff colitis. Continue his usual medications specially given the presence of a relatively fresh drug-eluting stent in his coronary artery 4. Status post [place]/PCI with DB stent-continue usual medications including his antiplatelet therapies 5. Diabetes-will need to continue to monitor his numbers.??Blood?sugar?200+?for?the?first?time?this?morning?which?maybe?a?sign?of?him?improving.??Continue?to?monitor?for?now?using?insulin?as?necessary 6.??Dyspnea?with?hypoxia-plan?to?do?two-view?chest?x-ray.??I?guess?I?am?somewhat?concerned?about?possible?volume?overload?given?the?vigorous?fluid?resuscitation?but?I?still?think?he?needs?fair?amount?of?fluids?at?this?point.??Look?for?evidence?of?pne umonia?etcetera,?although?patient?does?not?really?have?symptoms?at?this?time Overall patient is minimally improved will need at least a couple more days here in the hospital I believe. Quality VTE Deep Vein Thrombosis/Pulmonary Embolism Present on Admission: No
--- NOTE | 2023-02-09 08:07 | DI.RAD.S_ITS ---
PROCEDURE: XR CHEST 2V INDICATIONS: hypoxia TECHNIQUE: 2 views of the chest were acquired. COMPARISON: [facility], CR, XR CHEST 1V, 01/01/2023, 9:33. FINDINGS: Surgical changes and devices: None. Lungs and pleura: Chronic elevation of right hemidiaphragm is again seen. Mild pulmonary vascular congestion is noted. No definite focal infiltrate. No pleural effusions or pneumothorax. Mediastinum: Mediastinal contours are normal. Heart size is enlarged. Bones and chest wall: No suspicious bony abnormalities. Soft tissues appear unremarkable. IMPRESSION: Cardiomegaly and mild congestion. No definite focal infiltrate. No significant pleural effusion or pneumothorax. Dictated by: George Lantigua M.D. on 02/09/2023 at 8:47 Approved by: George Lantigua M.D. on 02/09/2023 at 8:48
[2023-02-09] MEDS: AMLODIPINE 5 MG TABLET 10 MG PO (08:14)
[2023-02-09] MEDS: VANCOMYCIN 125 MG CAPSULE 250 MG PO ×2 (08:14→21:44)
[2023-02-09] MEDS: ATORVASTATIN 20 MG TABLET 80 MG PO (08:15)
[2023-02-09] MEDS: ASPIRIN EC 81 MG TABLET PO (08:15)
[2023-02-09] MEDS: VALSARTAN 80 MG TABLET PO (08:15)
[2023-02-09] MEDS: FIDAXOMICIN 200 MG TABLET PO ×2 (08:15→21:44)
[2023-02-09] MEDS: FERROUS SULFATE 325 MG TABLET PO (08:15)
[2023-02-09] MEDS: ENOXAPARIN 40 MG/0.4 ML SYRINGE SUBCUT (08:16)
[2023-02-09] MEDS: METOPROLOL ER 50 MG TABLET PO (08:47)
[2023-02-09] MEDS: POTASSIUM CHLORIDE IN WATER 10 MEQ/100 ML PIGGYBACK 100 MEQ IV ×8 (08:48→16:27)
--- NOTE | 2023-02-09 09:14 | CM.DANOTE ---
DCP Assessment Note: Patient is a 72yo male here for profuse diarrhea and weakness (H&P). PCP: Brayden Payer: Medicare and [place] LOGISTICS PROJECT MANAGER reviewed EMR. Patient was here 01/14-01/19 and previously d/c'd home with supportive family. LOGISTICS PROJECT MANAGER entered room and introduced self and role. Patient was sitting up in bed and appeared A/Ox4. Patient appeared to be in pain at time of conversation. Patient uses no DME and lives independently at baseline. Patient reports he has no needs from this discharge team at this time. Patient will transport home with sister and has other supports at home. Plan: patient will d/c home when medically stable. Patient will transport with family. CM team will continue to follow closely. MATT Montero Discharge Planning/Care Management Advanced directive, confirm from FAMILY Start: 02/07/23 03:08 Freq: Q24H Status: Active Protocol: Document 02/07/23 05:00 JJY (Rec: 02/07/23 05:00 JJY [id number]) Advance Directive, confirm on record Time 05:00 Person contacted not done sister not available Copy received No CM Discharge Assessment Start: 02/07/23 13:50 Freq: Status: Active Protocol: Document 02/07/23 13:51 BQ (Rec: 02/07/23 13:53 BQ [id number]) Discharge Planning Assessment Assigned Security Specialist Madai Douglas RN CM Advance Directives? Yes Advance Directives on File No History Provided By Patient,Medical Record Has Patient been admitted in last 30 No days? Prior Living Arrangements House Comment Multi level home, bedroom and bathroom on 2nd level Household Members none Type of transporation used prior to Drives own vehicle admit Independent with ADL's Yes Is patient alert and oriented? Yes Needs Assistance With Home Chores / Shopping Caregiver for Another No Barriers to Discharge Yes Comment Home needs decontamination according to patient Discharge Plan Home Transportation Arrangement Sister will be farm truck driver home Referrals Initiated None needed Additional Comment Pending progress Medicare Choice List Provided No Whiteboard Updated in Patient Room with Yes name and ext. # of Security Specialist Review Status In Process Next Review Type Continued Stay Review
--- NOTE | 2023-02-09 12:11 | PT.IIE ---
Current Diagnoses Infectious gastroenteritis and colitis, unspecified (02/07/23) Surgical History (Last Reviewed 02/06/23 @ 23:30 by Fidelina Corona MD) Anesthesia S/P coronary artery stent placement (01/02/23) Status post laparoscopy (2004) Medical History (Last Reviewed 02/06/23 @ 23:30 by Fidelina Corona MD) Anemia (2010) Chronic renal failure, stage 3a Colon polyps (2010) Coronary artery disease (~12/2022) Diabetes mellitus (1998) Diabetic neuropathy Diverticular disease (2010) Essential hypertension (08/17/17) GERD (gastroesophageal reflux disease) (2008) GI bleeding (2010) Gout (2008) Hypogonadism in male Iron deficiency anemia Ischemic cardiomyopathy (~12/2022) Kidney stone on right side Obesity (BMI 30.0-34.9) Sigmoid diverticulitis Type 2 diabetes mellitus Uncontrolled type 2 diabetes mellitus Physical Therapy Inpatient Evaluation/Re-Eval M1 PT/OT-IP Prior Functional Status Start: 02/09/23 14:32 Freq: NEEDED Status: Active Protocol: Document 02/09/23 12:02 [facility] (Rec: 02/09/23 15:11 [facility] [id number]) Medical Review Prior Functional Status Medical History Reviewed Yes Diet/Fluid Consistency Regular Communication WNL Mobility and Gait amb w/o AD Activities of Daily Living and IADL's indep w/ADLs, drives, used to walk but stopped about a year ago d/t weakness Social History Household Members none Living Arrangements House Number of Floors (Floors) Two Floors Number of Stairs To Enter/Railing? 2 MISHEL no rail Home Environment Standard Height Toilet,High Toilet,Walk in Shower,Built-In Shower Seat Home Equipment Grab Bars In Shower M2 PT-IP Current Condition Start: 02/09/23 14:32 Freq: NEEDED Status: Active Protocol: Document 02/09/23 12:02 [facility] (Rec: 02/09/23 15:11 [facility] [id number]) Physical Therapy Current Condition Current Condition Evaluation Date 02/09/23 Treatment Diagnosis Cdiff, weakness M3 PT-IP Subjective Start: 02/09/23 14:32 Freq: NEEDED Status: Active Protocol: Document 02/09/23 12:02 [facility] (Rec: 02/09/23 15:11 [facility] [id number]) Subjective Physical Therapy Visit Type Type Initial Evaluation Visit Start Time 11:35 Visit Stop Time 12:02 Total Visit Minutes 27 Notes Student PT Princess Rosa participated in treatment session w/PT direct supervision Number of MASTER ELECTRICIAN Visits 0 M4 PT-IP Mobility and Gait Start: 02/09/23 14:32 Freq: NEEDED Status: Active Protocol: Document 02/09/23 12:02 [facility] (Rec: 02/09/23 15:11 [facility] [id number]) PT-Transfer Assessment Sit to and From Stand Sit to and from Stand Standby Assistance,Use of Upper Extremities Equipment Transfer Assistive Device Bed Rail Orthotic/Prosthetic Devices or Brace: No Comments Mobility Comments Pt was sitting EOB upon PT arrival. Pt stood SBA then amb around room CGA w/occ pt touching outside surfaces. 1 LOB where pt staggered to side slightly and caught his hand on the wall to regain balance. Pt left seated EOB w/call light in reach and RN in room Gait Assessment Gait Gait Assistance Required: Contact Guard Assist Distance (Feet) 70 Assistive Devices Assistive Device Gait Belt Orthotic/Prosthetic Devices or Brace: No Gait Deviations General Gait Pattern Lateral Trunk Lean Factors Limiting Gait Function Factors Limiting Gait Function Decreased Activity Tolerance, Decreased Strength,Poor Balance PT-Balance Assessment Sitting Balance and Reactions Static Sitting Balance Ability Normal Dynamic Sitting Balance Ability Normal Standing Balance and Reactions Static Standing Balance Ability Good Dynamic Standing Balance Ability Fair Device Used none M5 PT-IP Objective Assessments Start: 02/09/23 14:32 Freq: NEEDED Status: Active Protocol: Document 02/09/23 12:02 [facility] (Rec: 02/09/23 15:11 [facility] [id number]) Orientation Orientation/Cognition Level of Alertness Alert Orientation Name,Year,Place,Situation Language Function Ability No Deficits Noted Safety Awareness Understands Safety Issues Memory Description No Deficits Noted Gross Range of Motion Lower Extremity ROM Assessment Within Functional Limits Strength Lower Extremity Strength Hip 3/5 B Knee 4/5 B Ankle 4/5 B M6 PT-IP Treatment Start: 02/09/23 14:32 Freq: NEEDED Status: Active Protocol: Document 02/09/23 12:02 [facility] (Rec: 02/09/23 15:11 [facility] [id number]) Physical Therapy Treatment Education Education Provided Safety M7 PT-IP Assessment and Plan Start: 02/09/23 14:32 Freq: NEEDED Status: Active Protocol: Document 02/09/23 12:02 [facility] (Rec: 02/09/23 15:11 [facility] [id number]) PT Summary Assessment and Plan Potential Rehabilitation Potential Good Status of Condition at Evaluation Stable Summary Impairments Strength,Balance,Gait,Activity Tolerance Assessment Summary Pt presents to hospital d/t cdiff w/associated weakness. He hs been able to transfer to /from commode in room indep per pt but he did show some instability w/1 LOB during session. He does have a lot of stairs he will have to do once home and may need encouragement to use a cane for the outside steps. He will require stair training prior to return home. At this time, d/t his weakenss and living alone, pt may benefit from HH to help improve balance and stability once home. Goals Bed Mobility Goal Independent Transfer Goal Independent Gait Goal Independent Gait Distance 150ft Other Goals up/down 2 steps no rail and up .dwon flight of stairs w/rail indep Days to Meet Goals 8 Frequency of Treatment Frequency Of Treatment Once a Day Treatment Plan Physical Therapy Treatment Plan Bed Mobility Training,Transfer Training,Gait Training, Therapeutic Exercise,Balance Retraining,Discharge Planning, Neuromuscular Re-ed Other Recommendations and Next Treatment bring in step to workon steps Focus Recommendations To Nursing Amount of Assist Needed Standby Assistance Discharge Recommendations PT Discharge Recommendations Home,Home Health Transportation Needs at Discharge Private Vehicle
--- NOTE | 2023-02-09 15:58 | OT.IPNOTE ---
Attempted to see pt for OT eval. Pt states has no OT needs and mainly still having diarrhea frequency. Pt states does not need any OT at this time, discharge OT eval orders.
--- NOTE | 2023-02-09 16:05 | OT.IPNOTE ---
Pt not feeling that OT is needed as able to do his ADl's on his own. Pt states his main barrier is having diarrhea all the time. Suggested pt get a bedside commode to use at home. Discharge OT eval orders, no charge
--- NOTE | 2023-02-09 16:47 | PC.NURSE ---
Addendum entered by Kerry Riley R.N. 02/09/23 17:00: Pt refusing blood sugar check and ordered coverage of lispro insulin. Pt states, I don't need this at home. I'm not taking it while I'm here. Education provided on the potential need for insulin coverage while ill but pt continues to decline. Original Note: Day shift: VSS, A&Ox4. Pt up to BSC. Pt has had multiple loose stools. Denies cramping or abd pain. Calls appropriately using call light. Able to tolerate carb consistent diet. Worked with PT/OT. Pt resting. Call light within reach. Care ongoing.
[2023-02-09 20:52] LABS: HEMOLYSIS 37 (0-50); Potassium 3.5 mmol/L (3.4-5.1)
[2023-02-09] MEDS: glipiZIDE 5 MG TABLET PO (21:44)
[2023-02-09] MEDS: FAMOTIDINE 20 MG TABLET PO (21:44)
[2023-02-09] MEDS: SODIUM CHLORIDE 0.9% FLUSH 10 ML IV (21:44)
[2023-02-10] VITALS (14 sets, daily range): BP systolic 133–162; BP diastolic 80–94; PULSE 72–108; RESP 15–19; TEMP 36.4–36.8; O2SAT 89–100
[2023-02-10 04:49] LABS: BUN Creatinine Ratio 9.8 (6-22); Blood Urea Nitrogen 12 mg/dL (9-20); Calcium 7.8 mg/dL (8.4-10.2); Carbon Dioxide 22 mmol/L (22-32); Chloride 112 mmol/L (98-107); Estimated Glomerular Filt Rate > 60 mL/min (>60); Glucose 97 mg/dL (80-110); HEMOLYSIS < 15 (0-50); Magnesium 1.7 mg/dL (1.6-2.3); Potassium 3.9 mmol/L (3.4-5.1); Sodium 142 mmol/L (137-145)
[2023-02-10] MEDS: SODIUM CHLORIDE 0.9% 1,000 ML 125 ML IV (05:44)
--- NOTE | 2023-02-10 06:47 | PM.PN.1 ---
Subjective Subjective Date Patient Seen: 02/10/23 Time Patient Seen: 06:48 Interval history: Patient demonstrates continued improvement with his bowels. He can go several hours without a bowel movement then will have a serious bowel movements over 15 or 20 minutes and then be good for hours again Making only small volumes urine but is very dilute in appearance Breathing is better he says. He feels generally much better. Exam Vital Signs (past 8 hours): - 02/10/23 00:00 02/10/23 04:00 Temperature 97.5 F L 97.5 F L Pulse Rate 72 98 H Respiratory Rate 19 18 Blood Pressure 153/83 H 147/94 H Pulse Oximetry 99 98 Oxygen Flow Rate 0 0 Fraction of Inspired Oxygen 28 SaO2/FiO2 Ratio 328 Oxygen Delivery Method Room Air Oxygen Flow Rate 0 Objective Labs 02/08/23 06:23 02/10/23 04:20 Labs: Laboratory Results - last 24 hr 02/09/23 02/09/23 02/10/23 05:54 20:19 04:20 Sodium 140 142 Potassium 2.8 L 3.5 3.9 Chloride 112 H 112 H Carbon Dioxide 22 22 BUN 12 12 Creatinine 1.18 1.23 Estimated GFR > 60 > 60 BUN/Creatinine Ratio 10.2 9.8 Glucose 127 H 97 Calcium 7.3 L 7.8 L Magnesium 1.7 PFSH Medical History Anemia (2010) Chronic renal failure, stage 3a Colon polyps (2010) Coronary artery disease (~12/2022) Diabetes mellitus (1998) Diabetic neuropathy Diverticular disease (2010) Essential hypertension (08/17/17) GERD (gastroesophageal reflux disease) (2008) GI bleeding (2010) Gout (2008) Hypogonadism in male Iron deficiency anemia Ischemic cardiomyopathy (~12/2022) Kidney stone on right side Obesity (BMI 30.0-34.9) Sigmoid diverticulitis Type 2 diabetes mellitus Uncontrolled type 2 diabetes mellitus Surgical History Anesthesia S/P coronary artery stent placement (01/02/23) Status post laparoscopy (2004) Family History Father Hypertension Alzheimer's disease Cancer Grandfather Heart disease Grandmother No problems noted. Mother Cancer Grandfather Heart disease Grandmother Diabetes mellitus Social History marital status: unmarried,single household members: none Smoking Status: Former smoker alcohol intake: former substance use type: marijuana Assessment & Plan Assessment & Plan narrative: 1. C diff colitis-continue with the oral antibiotics. Some clinical improvement already hopefully this continues.??No?reason?to?make?any?changes?today. Expect there to be more dramatic improvement at some point in the near term future which is what he can likely be discharged 2. Fluids/electrolytes/nutrition-patient's potassium now normalized. Continue with oral potassium and magnesium (low-dose magnesium). I think he is got some evidence of volume overload with some hypertension some evidence of congestion on his chest x-ray and very limited urine output. I think he would benefit from a dose of furosemide to try and ?open the Flood montaño ?so that he can generate more urine probably get some of the fluid out of the third spaces etcetera. I am also going to cut back on his IV fluid rate but not stop it altogether yet. 3. History of GI bleed-GI bleed thought to be secondary maybe 2 diverticulitis plus his anticoagulation. No evidence of bleeding at this time despite the active C diff colitis. Continue his usual medications specially given the presence of a relatively fresh drug-eluting stent in his coronary artery 4. Status post IN/PCI with DB stent-continue usual medications including his antiplatelet therapies 5. Diabetes-will need to continue to monitor his numbers.??Blood sugars okay yesterday. No reason to make any changes for now 6.??Dyspnea?with?hypoxia-evidence of mild vascular congestion on chest x-ray. I think he is a bit volume overloaded without true congestive heart failure. He seems clinically somewhat better this morning and as above I am going to give him a dose of Lasix to see if we can induce more diuresis which is what I think he needs. Overall patient is minimally improved will need at least a couple more days here in the hospital I believe. Quality VTE Deep Vein Thrombosis/Pulmonary Embolism Present on Admission: No
[2023-02-10] MEDS: FAMOTIDINE 20 MG TABLET PO ×2 (08:59→21:02)
[2023-02-10] MEDS: METOPROLOL ER 50 MG TABLET PO (08:59)
[2023-02-10] MEDS: VANCOMYCIN 125 MG CAPSULE 250 MG PO ×2 (08:59→21:02)
[2023-02-10] MEDS: ASPIRIN EC 81 MG TABLET PO (08:59)
[2023-02-10] MEDS: FUROSEMIDE 40 MG/4 ML VIAL 20 MG IV (08:59)
[2023-02-10] MEDS: FERROUS SULFATE 325 MG TABLET PO (08:59)
[2023-02-10] MEDS: AMLODIPINE 5 MG TABLET 10 MG PO (08:59)
[2023-02-10] MEDS: ATORVASTATIN 20 MG TABLET 80 MG PO (08:59)
[2023-02-10] MEDS: MAGNESIUM OXIDE 400 MG TABLET PO (09:00)
[2023-02-10] MEDS: ENOXAPARIN 40 MG/0.4 ML SYRINGE SUBCUT (09:01)
[2023-02-10] MEDS: SODIUM CHLORIDE 0.9% FLUSH 10 ML IV ×2 (09:01→21:05)
[2023-02-10] MEDS: FIDAXOMICIN 200 MG TABLET PO ×2 (09:05→21:02)
[2023-02-10] MEDS: VALSARTAN 80 MG TABLET PO (09:05)
[2023-02-10 12:49] LABS: C difficie Toxins A and B, EIA Negative (Negative)
[2023-02-10] MEDS: SODIUM CHLORIDE 0.9% 1,000 ML 80 ML IV (13:45)
--- NOTE | 2023-02-10 16:01 | CM.DPC ---
DCP Continued: ENGINEERING PSYCHOLOGIST reviewed EMR. Per Brayden STEWART, Overall patient is minimally improved will need at least a couple more days here in the hospital I believe. ENGINEERING PSYCHOLOGIST received call from sister Betty ([phone]). Patient expressed verbal consent for CM team to speak with sister. Sister has questions re: stair chair lift at home. ENGINEERING PSYCHOLOGIST answered questions to best of ability. Sister inquired about sending patient to a SNF. ENGINEERING PSYCHOLOGIST reported that in order to qualify for a SNF, it would have to be recommended by provider and at this point a SNF is not recommended. Sister expressed verbal understanding. ENGINEERING PSYCHOLOGIST reported he could go to a SNF with private pay. Sister said she would look into it. Sister reported she's been working hard to clean his home and has hired human services supervisor to clean house due to patient's c-diff diagnosis. Plan: patient will d/c home when medically stable with family support. Transport with sister. CM team will continue to follow closely. MATT Montero
[2023-02-10] MEDS: POTASSIUM CHLORIDE 20 MEQ/15 ML UDC PO (16:50)
--- NOTE | 2023-02-10 17:55 | PT.IPTN ---
Addendum entered and electronically signed by Ana Magdaleno, PT 02/11/23 08:12: PT direct supervision and direction to PT student. Original Note: Current Diagnoses Infectious gastroenteritis and colitis, unspecified (02/07/23) Physical Therapy Treatment Note M2 PT-IP Current Condition Start: 02/09/23 14:32 Freq: NEEDED Status: Active Protocol: Document 02/10/23 16:35 (Rec: 02/10/23 17:54 [id number]) Physical Therapy Current Condition Current Condition Evaluation Date 02/10/23 Treatment Diagnosis Cdiff,weakness M3 PT-IP Subjective Start: 02/09/23 14:32 Freq: NEEDED Status: Active Protocol: Document 02/10/23 16:35 (Rec: 02/10/23 17:54 [id number]) Subjective Physical Therapy Visit Type Type Treatment Note Visit Start Time 04:03 Visit Stop Time 04:28 Total Visit Minutes 25 Notes Student PT Princess Lee participated in treatment session w/PT direct supervision Number of INFORMATICS PHARMACIST Visits 0 Physical Therapy Visit Comments Patient Comments pt was resting when encountered w/ and was not pleased to have to get up but was agreeable. M4 PT-IP Mobility and Gait Start: 02/09/23 14:32 Freq: NEEDED Status: Active Protocol: Document 02/10/23 16:35 (Rec: 02/10/23 17:54 [id number]) PT-Bed Mobility Assessment Supine to Sit Supine to Sit Independent,Bedrails Scooting Scooting to Edge of Bed Independent PT-Transfer Assessment Sit to and From Stand Sit to and from Stand Independent,Use of Upper Extremities Comments Mobility Comments Pt was lying down when PT arrived. Pt was able to stand independently w/ use of UEs. Pt had some loss of balance and was staggering as he walked around the room. He still reached for outside surfaces as he walked. His R leg felt stiff at first, after moving a little he noted that it felt less stiff. Pt was left seated on EOB w/call light in reach Gait Assessment Gait Gait Assistance Required: Standby Assistance Distance (Feet) 160 Assistive Devices Assistive Device Gait Belt Gait Deviations General Gait Pattern Lateral Trunk Lean Factors Limiting Gait Function Factors Limiting Gait Function Decreased Activity Tolerance, Decreased Strength,Poor Balance Stair Climbing Assessment Evaluation Level of Assist On Stairs Contact Guard Assistance Devices Stair Climbing Assistive Devices Left Railing Technique/Endurance Stair Climbing Direction Ascend and Descend Stair Climbing Technique Step to Step Number of Steps Climbed 10 Comments Stair Climbing Comments pt used step in room to simulate steps. it is as high as the step he has to get into his home from the garage. He uses a rail on the left to go to his second story and the door jam to help himself up the few steps to get into his house. Did 2 steps reaching for PT hand w/o rail to simulate steps into home. M5 PT-IP Objective Assessments Start: 02/09/23 14:32 Freq: NEEDED Status: Active Protocol: Document 02/09/23 12:02 [facility] (Rec: 02/09/23 15:11 [facility] [id number]) Orientation Orientation/Cognition Level of Alertness Alert Orientation Name,Year,Place,Situation Language Function Ability No Deficits Noted Safety Awareness Understands Safety Issues Memory Description No Deficits Noted Gross Range of Motion Lower Extremity ROM Assessment Within Functional Limits Strength Lower Extremity Strength Hip 3/5 B Knee 4/5 B Ankle 4/5 B M6 PT-IP Treatment Start: 02/09/23 14:32 Freq: NEEDED Status: Active Protocol: Document 02/10/23 16:35 (Rec: 02/10/23 17:54 [id number]) Physical Therapy Treatment Education Education Provided Safety M7 PT-IP Assessment and Plan Start: 02/09/23 14:32 Freq: NEEDED Status: Active Protocol: Document 02/10/23 16:35 (Rec: 02/10/23 17:54 [id number]) PT Summary Assessment and Plan Summary Assessment Summary pt was not pleased to have to get up w/ PT but was compliant . He was able to use the step to mimic stairs CGA w/ the use of the rail on his L. He is still slightly unbalanced when walking and shows weakness in LEs w/ability to step up. At this time, d/t his weakenss and living alone, pt may still benefit from HH to help improve balance and stability once home. Goals Bed Mobility Goal Independent Transfer Goal Independent Gait Goal Independent Gait Distance 150ft Other Goals up/down 2 steps no rail and up . down flight of stairs w/rail indep Days to Meet Goals 8 Frequency of Treatment Frequency Of Treatment Once a Day Treatment Plan Physical Therapy Treatment Plan Bed Mobility Training,Transfer Training,Gait Training, Therapeutic Exercise,Balance Retraining,Discharge Planning, Neuromuscular Re-ed Other Recommendations and Next Treatment bring in step to ontinue to Focus work on steps Recommendations To Nursing Amount of Assist Needed Standby Assistance Discharge Recommendations PT Discharge Recommendations Home,Home Health Transportation Needs at Discharge Private Vehicle
[2023-02-10] MEDS: glipiZIDE 5 MG TABLET PO (21:02)
[2023-02-11] VITALS (12 sets, daily range): BP systolic 130–153; BP diastolic 76–90; PULSE 78–104; RESP 16–18; TEMP 36.6–36.7; O2SAT 82–99
[2023-02-11] MEDS: SODIUM CHLORIDE 0.9% 1,000 ML 80 ML IV (04:22)
[2023-02-11 04:46] LABS: BUN Creatinine Ratio 10.7 (6-22); Blood Urea Nitrogen 13 mg/dL (9-20); Calcium 7.9 mg/dL (8.4-10.2); Carbon Dioxide 21 mmol/L (22-32); Chloride 111 mmol/L (98-107); Estimated Glomerular Filt Rate > 60 mL/min (>60); Glucose 92 mg/dL (80-110); HEMOLYSIS < 15 (0-50); Magnesium 1.6 mg/dL (1.6-2.3); Potassium 3.1 mmol/L (3.4-5.1); Sodium 143 mmol/L (137-145)
--- NOTE | 2023-02-11 07:37 | P.PN_ITS ---
Subjective Subjective Date Patient Seen: 02/11/23 Time Patient Seen: 07:37 Interval history: Patient?is?still?going?about?every?45?minutes?but?more?formed?stool?and ?feels?like?he?has?some?control.??Appetite?is?improved.?? Potassium?again?just?a?bit?low?this?morning.?? [place]?like?Lasix?given?IV?yesterday?cause?lower?extremity?edema?he?was?pretty?unc omfortable?un til?it?dissipated.??Urine?outputs?have?been?inaccurate?so?difficult?to?really?as sess?that.??He?was?resistant?to?additional?Lasix?this?morning? Blood?pressure?continues?to?be?borderline?elevated? Exam Vital Signs (past 8 hours): - 02/11/23 04:00 Temperature 97.8 F Pulse Rate 97 H Respiratory Rate 16 Blood Pressure 153/90 H Pulse Oximetry 94 Oxygen Flow Rate 0 Fraction of Inspired Oxygen 28 SaO2/FiO2 Ratio 328 Oxygen Delivery Method Room Air Oxygen Flow Rate 0 Objective Labs 02/08/23 06:23 02/11/23 04:20 Labs: Laboratory Results - last 24 hr 02/06/23 02/11/23 10:32 04:20 Sodium 143 Potassium 3.1 L Chloride 111 H Carbon Dioxide 21 L BUN 13 Creatinine 1.21 Estimated GFR > 60 BUN/Creatinine Ratio 10.7 Glucose 92 Calcium 7.9 L Magnesium 1.6 C. diff Toxin A&B (EIA) Negative [facility] Medical History Anemia (2010) Chronic renal failure, stage 3a Colon polyps (2010) Coronary artery disease (~12/2022) Diabetes mellitus (1998) Diabetic neuropathy Diverticular disease (2010) Essential hypertension (08/17/17) GERD (gastroesophageal reflux disease) (2008) GI bleeding (2010) Gout (2008) Hypogonadism in male Iron deficiency anemia Ischemic cardiomyopathy (~12/2022) Kidney stone on right side Obesity (BMI 30.0-34.9) Sigmoid diverticulitis Type 2 diabetes mellitus Uncontrolled type 2 diabetes mellitus Surgical History Anesthesia S/P coronary artery stent placement (01/02/23) Status post laparoscopy (2004) Family History Father Hypertension Alzheimer's disease Cancer Grandfather Heart disease Grandmother No problems noted. Mother Cancer Grandfather Heart disease Grandmother Diabetes mellitus Social History marital status: unmarried,single household members: none Smoking Status: Former smoker alcohol intake: former substance use type: marijuana Assessment & Plan Assessment & Plan narrative: 1. C diff colitis-continue with the oral antibiotics. Some clinical improvement already hopefully this continues.??No?reason?to?make?any?changes?today. Expect there to be more dramatic improvement at some point in the near term future which is what he can likely be discharged.??I?would?plan?for?2?weeks?oral?antibiotics?aimed?at?the?C?diff?follo wing?discharge 2. Fluids/electrolytes/nutrition-patient's?potassium?again?on?the?low?side.??Will?g katy?some?mor e?parental?potassium.??Still?not?keeping?up?with?his?output?which?is?another?nader son?to?keep?him?in?t he?hospital.??Still?believe?that?he?would?benefit?from?additional?diuretics.??I? am?not?aware?of?any? association?between?the?furosemide?and?edema?other?than?it?resolving?it.??Discus sed?this?with?him?and?he?is?okay?with?that?this?morning 3. History of GI bleed-no?evidence?of?bleeding 4. Status post PR/PCI with DB stent-continue usual medications including?his?antiplatelet?therapies,?given?no?evidence?of?bleeding 5. Diabetes-will need to continue to monitor his numbers.??Blood sugars okay yesterday. No reason to make any changes for now 6.??Dyspnea?with?hypoxia-overall?improved.??I?do?thin k?the?Lasix?made?a?difference?and?additional?Lasix?today?will?be?given Overall patient is minimally improved will need at least a couple more days here in the hospital I believe.??Goals?will?be?when? he?is?able?to?keep?up?orally?both?from?a?fluid?standpoint?and?electrolyte?standp oint?with?his?GI?out put.??Not?there?today?of?course?but?I?think?in?the?next?48?hours?will?likely?get ?there Quality VTE Deep Vein Thrombosis/Pulmonary Embolism Present on Admission: No
[2023-02-11] MEDS: POTASSIUM CHLORIDE IN WATER 10 MEQ/100 ML PIGGYBACK 100 MEQ IV ×3 (08:17→10:49)
[2023-02-11] MEDS: ATORVASTATIN 20 MG TABLET 80 MG PO (08:23)
[2023-02-11] MEDS: METOPROLOL ER 50 MG TABLET PO (08:23)
[2023-02-11] MEDS: FAMOTIDINE 20 MG TABLET PO ×2 (08:23→20:51)
[2023-02-11] MEDS: VANCOMYCIN 125 MG CAPSULE 250 MG PO ×2 (08:23→20:51)
[2023-02-11] MEDS: MAGNESIUM OXIDE 400 MG TABLET PO (08:24)
[2023-02-11] MEDS: ASPIRIN EC 81 MG TABLET PO (08:24)
[2023-02-11] MEDS: FIDAXOMICIN 200 MG TABLET PO ×2 (08:24→20:51)
[2023-02-11] MEDS: ENOXAPARIN 40 MG/0.4 ML SYRINGE SUBCUT (08:24)
[2023-02-11] MEDS: FERROUS SULFATE 325 MG TABLET PO (08:24)
[2023-02-11] MEDS: AMLODIPINE 5 MG TABLET 10 MG PO (08:25)
[2023-02-11] MEDS: SODIUM CHLORIDE 0.9% FLUSH 10 ML IV ×2 (08:26→20:52)
[2023-02-11] MEDS: VALSARTAN 80 MG TABLET PO (08:27)
[2023-02-11] MEDS: FUROSEMIDE 40 MG/4 ML VIAL IV (08:59)
[2023-02-11] MEDS: POTASSIUM CHLORIDE 20 MEQ/15 ML UDC PO ×2 (09:11→17:35)
--- NOTE | 2023-02-11 09:49 | PC.NURSE ---
IV Potassium infusing at 75mL/hr per patient comfort. All infusions late in MAR.
[2023-02-11] MEDS: POTASSIUM CHLORIDE IN WATER 10 MEQ/100 ML PIGGYBACK 75 MEQ IV ×3 (12:33→15:59)
[2023-02-11] MEDS: MAGNESIUM CHLORIDE 64 MG TABLET 128 MG PO (13:07)
--- NOTE | 2023-02-11 16:27 | PT-IP ANOTE ---
Pt refused PT due to fatigue, will check back tomorrow.
[2023-02-11] MEDS: glipiZIDE 5 MG TABLET PO (20:51)
[2023-02-12 05:10] LABS: BUN Creatinine Ratio 10.6 (6-22); Blood Urea Nitrogen 14 mg/dL (9-20); Calcium 7.8 mg/dL (8.4-10.2); Carbon Dioxide 23 mmol/L (22-32); Chloride 109 mmol/L (98-107); Estimated Glomerular Filt Rate 57 mL/min (>60); Glucose 93 mg/dL (80-110); HEMOLYSIS < 15 (0-50); Magnesium 1.6 mg/dL (1.6-2.3); Potassium 3.1 mmol/L (3.4-5.1); Sodium 140 mmol/L (137-145)
--- NOTE | 2023-02-12 07:34 | P.PN_ITS ---
Subjective Subjective Date Patient Seen: 02/12/23 Time Patient Seen: 07:34 Interval history: Patient?reports?improvement?he?was?able?to?sleep?for?2?hours?at?a?stret ch?last?evening?meaning?he?did?not?have?to?use?the?commode?for?2?hours?in?a?row? which?is?definitely?an?improvement. Still?has?edema?and?swelling?of?his?lower?extremities?but?no?unusual?reaction?to ?the?Lasix?given?yesterday? Limited?urine?output?per?I's?&?O's?after?Lasix?yesterday?but?were?probably ?not?getting?super?accurate?numbers?without?a?catheter?patient?admits?that?he?is ?not?always?able?to? use?the?urinal?and?often?goes?went?on?the?commode?with?his?diarrhea Exam Vital Signs (past 8 hours): Fraction of Inspired Oxygen 28 SaO2/FiO2 Ratio 328 Oxygen Delivery Method Room Air Oxygen Flow Rate 0 Objective Labs 02/08/23 06:23 02/12/23 04:20 Labs: Laboratory Results - last 24 hr 02/12/23 04:20 Sodium 140 Potassium 3.1 L Chloride 109 H Carbon Dioxide 23 BUN 14 Creatinine 1.32 H Estimated GFR 57 L BUN/Creatinine Ratio 10.6 Glucose 93 Calcium 7.8 L Magnesium 1.6 PFS Medical History Anemia (2010) Chronic renal failure, stage 3a Colon polyps (2010) Coronary artery disease (~12/2022) Diabetes mellitus (1998) Diabetic neuropathy Diverticular disease (2010) Essential hypertension (08/17/17) GERD (gastroesophageal reflux disease) (2008) GI bleeding (2010) Gout (2008) Hypogonadism in male Iron deficiency anemia Ischemic cardiomyopathy (~12/2022) Kidney stone on right side Obesity (BMI 30.0-34.9) Sigmoid diverticulitis Type 2 diabetes mellitus Uncontrolled type 2 diabetes mellitus Surgical History Anesthesia S/P coronary artery stent placement (01/02/23) Status post laparoscopy (2004) Family History Father Hypertension Alzheimer's disease Cancer Grandfather Heart disease Grandmother No problems noted. Mother Cancer Grandfather Heart disease Grandmother Diabetes mellitus Social History marital status: unmarried,single household members: none Smoking Status: Former smoker alcohol intake: former substance use type: marijuana Assessment & Plan Assessment & Plan narrative: 1. C diff colitis-continue with the oral antibiotics. Some clinical improvement already hopefully this continues.??No?reason?to ?make?any?changes?today. Expect there to be more dramatic improvement at some point in the near term future which is what he can likely be discharged.??I?would?plan?for?2?weeks?oral?antibiotics?aimed ?at?the?C?diff?following?discharge.??Patient?reminds?me?that?his?outpatient?phar karolina?is?[facility]?whic h?is?notoriously?slow?in?filling?prescriptions.??I?am?going?to?send?prescription s?for?the?vancomycin?and?fidaxomicin?today 2. Fluids/electrolytes/nutrition-patient's?potassium?still?low?this?morning. ??I?am?going?to?increase?his?oral?potassium?not?give?him?any?parental?potassium. ??I?will?also?send?a ?prescription?to?the?pharmacy?as?above?preparation?for?discharge?hopefully?in?th e?next?couple?of?day s.??I?am?also?going?to?continue?him?on?Lasix?but?switch?to?oral 3. History of GI bleed-no?evidence?of?bleeding 4. Status post [place]/PCI with DB stent-continue usual medications including?his?antiplatelet?therapies,?given?no?evidence?of?bleeding 5. Diabetes-will need to continue to monitor his numbers.??Blood sugars okay yesterday. No reason to make any changes for now 6.??Dyspnea?with?hypoxia- overall?improved.??Will?continue?on?oral?Lasix?at?this?time Overall patient is minimally improved will need at least a couple more days here in the hospital I believe.??Goals?will?be?when?he?is?able? to?keep?up?orally?both?from?a?fluid?standpoint?and?electrolyte?standpoint?with?h is?GI?output.??Not?t here?today?of?course?but?I?think?in?the?next?48?hours?will?likely?get?there Quality VTE Deep Vein Thrombosis/Pulmonary Embolism Present on Admission: No
[2023-02-12] MEDS: FUROSEMIDE 40 MG TABLET PO (09:05)
[2023-02-12] MEDS: AMLODIPINE 5 MG TABLET 10 MG PO (09:05)
[2023-02-12] MEDS: POTASSIUM CHLORIDE 20 MEQ TAB 40 MEQ PO ×3 (09:05→17:30)
[2023-02-12] MEDS: VALSARTAN 80 MG TABLET PO (09:05)
[2023-02-12] MEDS: FIDAXOMICIN 200 MG TABLET PO ×2 (09:05→21:21)
[2023-02-12] MEDS: ATORVASTATIN 20 MG TABLET 80 MG PO (09:05)
[2023-02-12] MEDS: MAGNESIUM OXIDE 400 MG TABLET PO (09:05)
[2023-02-12] MEDS: VANCOMYCIN 125 MG CAPSULE 250 MG PO ×2 (09:05→21:21)
[2023-02-12] MEDS: METOPROLOL ER 50 MG TABLET PO (09:06)
[2023-02-12] MEDS: FAMOTIDINE 20 MG TABLET PO ×2 (09:06→21:21)
[2023-02-12] MEDS: FERROUS SULFATE 325 MG TABLET PO (09:06)
[2023-02-12] MEDS: SODIUM CHLORIDE 0.9% FLUSH 10 ML IV ×2 (09:06→21:21)
[2023-02-12] MEDS: ASPIRIN EC 81 MG TABLET PO (09:06)
[2023-02-12 09:35] VITALS: BP 135/77; PULSE 72; RESP 17; TEMP 36.6; O2SAT 97
[2023-02-12 09:36] VITALS: BP 135/77; PULSE 72
--- NOTE | 2023-02-12 13:50 | PT.IPTN ---
Current Diagnoses Infectious gastroenteritis and colitis, unspecified (02/07/23) Physical Therapy Treatment Note M2 PT-IP Current Condition Start: 02/09/23 14:32 Freq: NEEDED Status: Active Protocol: Document 02/10/23 16:35 [facility] (Rec: 02/10/23 17:54 [facility] [id number]) Physical Therapy Current Condition Current Condition Evaluation Date 02/10/23 Treatment Diagnosis Cdiff,weakness M3 PT-IP Subjective Start: 02/09/23 14:32 Freq: NEEDED Status: Active Protocol: Document 02/12/23 14:00 TS (Rec: 02/12/23 14:10 TS [id number]) Subjective Physical Therapy Visit Type Type Treatment Note Visit Start Time 13:50 Visit Stop Time 14:00 Total Visit Minutes 10 Physical Therapy Visit Comments Patient Comments Pt reports increased edema in LEs since hospital stay, agreeable to PT. M4 PT-IP Mobility and Gait Start: 02/09/23 14:32 Freq: NEEDED Status: Active Protocol: Document 02/12/23 14:00 TS (Rec: 02/12/23 14:10 TS [id number]) PT-Bed Mobility Assessment Supine to Sit Supine to Sit Independent,Bedrails Scooting Scooting to Edge of Bed Independent PT-Transfer Assessment Sit to and From Stand Sit to and from Stand Independent,Use of Upper Extremities Equipment Transfer Assistive Device Bed Rail Orthotic/Prosthetic Devices or Brace: No Comments Mobility Comments Supine to sit Ind with use of bed rail, required extra time to upright trunk. Sit to stand Ind with no AD, had no LOB. He ambulated ~500' SBA with no AD, pt is unsteady with gait and uses wall support x2 for balance. Pt was brought back to room where he performed steps x8, no LOB but buckled x1, required no assist for correction. Pt was left in room, all needs met. Gait Assessment Gait Gait Assistance Required: Standby Assistance Distance (Feet) 500 Assistive Devices Assistive Device Gait Belt Orthotic/Prosthetic Devices or Brace: No Gait Deviations General Gait Pattern Lateral Trunk Lean Factors Limiting Gait Function Factors Limiting Gait Function Decreased Activity Tolerance, Decreased Sensation,Decreased Strength,Poor Balance,Poor Safety Awareness Comments Gait Comments Pt has neuropathy at baseline and makes him unsteady. Stair Climbing Assessment Evaluation Level of Assist On Stairs Standby Assistance Devices Stair Climbing Assistive Devices Left Railing Technique/Endurance Stair Climbing Direction Ascend and Descend Stair Climbing Technique Step to Step Number of Steps Climbed 8 Comments Stair Climbing Comments See mobility comments. PT-Balance Assessment Sitting Balance and Reactions Static Sitting Balance Ability Normal Dynamic Sitting Balance Ability Normal Standing Balance and Reactions Static Standing Balance Ability Good Dynamic Standing Balance Ability Fair Device Used none M5 PT-IP Objective Assessments Start: 02/09/23 14:32 Freq: NEEDED Status: Active Protocol: Document 02/09/23 12:02 [facility] (Rec: 02/09/23 15:11 [facility] [id number]) Orientation Orientation/Cognition Level of Alertness Alert Orientation Name,Year,Place,Situation Language Function Ability No Deficits Noted Safety Awareness Understands Safety Issues Memory Description No Deficits Noted Gross Range of Motion Lower Extremity ROM Assessment Within Functional Limits Strength Lower Extremity Strength Hip 3/5 B Knee 4/5 B Ankle 4/5 B M6 PT-IP Treatment Start: 02/09/23 14:32 Freq: NEEDED Status: Active Protocol: Document 02/12/23 14:00 (Rec: 02/12/23 14:10 [id number]) Physical Therapy Treatment Education Education Provided Safety M7 PT-IP Assessment and Plan Start: 02/09/23 14:32 Freq: NEEDED Status: Active Protocol: Document 02/12/23 14:00 TS (Rec: 02/12/23 14:10 TS [id number]) PT Summary Assessment and Plan Potential Rehabilitation Potential Good Status of Condition at Evaluation Stable Summary Progress Towards Goals Progressing Toward Goals Assessment Summary Pt performed bed Ind and sit to stands Ind with no AD. He progressed his ambulation to ~ 500' SBA with no AD. He is unsteady on feet requiring occasional hand on wall for balance, pt has neuropathy in feet at baseline. He did have x1 buckling when performing stairs due to leg weakness and increasing edema in bilateral LEs. PT is recommending home with HHPT. Goals Bed Mobility Goal Independent Transfer Goal Independent Gait Goal Independent Gait Distance 150ft Other Goals up/down 2 steps no rail and up . down flight of stairs w/rail indep Days to Meet Goals 8 Frequency of Treatment Frequency Of Treatment Once a Day Treatment Plan Physical Therapy Treatment Plan Bed Mobility Training,Transfer Training,Gait Training, Therapeutic Exercise,Balance Retraining,Discharge Planning, Neuromuscular Re-ed Other Recommendations and Next Treatment bring in step to continue to Focus work on steps, balance training. Recommendations To Nursing Amount of Assist Needed Independent Discharge Recommendations PT Discharge Recommendations Home,Home Health Transportation Needs at Discharge Private Vehicle
[2023-02-12 19:24] VITALS: PULSE 96; O2SAT 95
[2023-02-12 19:25] VITALS: BP 128/68; PULSE 88; O2SAT 97
[2023-02-12 20:45] VITALS: BP 128/68; PULSE 75; RESP 18; TEMP 36.9; O2SAT 100
[2023-02-12] MEDS: glipiZIDE 5 MG TABLET PO (21:21)
[2023-02-13 04:38] LABS: BUN Creatinine Ratio 11.8 (6-22); Blood Urea Nitrogen 16 mg/dL (9-20); Calcium 7.6 mg/dL (8.4-10.2); Carbon Dioxide 25 mmol/L (22-32); Chloride 108 mmol/L (98-107); Estimated Glomerular Filt Rate 55 mL/min (>60); Glucose 138 mg/dL (80-110); HEMOLYSIS < 15 (0-50); Magnesium 1.6 mg/dL (1.6-2.3); Potassium 3.1 mmol/L (3.4-5.1); Sodium 141 mmol/L (137-145)
[2023-02-13 08:02] VITALS: BP 118/77; PULSE 106; TEMP 36.2; O2SAT 94
[2023-02-13] MEDS: MAGNESIUM CHLORIDE 64 MG TABLET 128 MG PO (08:59)
[2023-02-13] MEDS: FIDAXOMICIN 200 MG TABLET PO ×2 (09:01→21:00)
[2023-02-13] MEDS: ASPIRIN EC 81 MG TABLET PO (09:01)
[2023-02-13] MEDS: POTASSIUM CHLORIDE 20 MEQ TAB 40 MEQ PO ×3 (09:01→18:05)
[2023-02-13] MEDS: VALSARTAN 80 MG TABLET PO (09:01)
[2023-02-13 09:02] VITALS: BP 118/77; PULSE 105
[2023-02-13] MEDS: FERROUS SULFATE 325 MG TABLET PO (09:02)
[2023-02-13] MEDS: FUROSEMIDE 40 MG TABLET PO (09:02)
[2023-02-13] MEDS: METOPROLOL ER 50 MG TABLET PO (09:02)
[2023-02-13] MEDS: VANCOMYCIN 125 MG CAPSULE 250 MG PO ×2 (09:02→21:00)
[2023-02-13] MEDS: AMLODIPINE 5 MG TABLET 10 MG PO (09:03)
[2023-02-13] MEDS: ATORVASTATIN 20 MG TABLET 80 MG PO (09:03)
[2023-02-13] MEDS: FAMOTIDINE 20 MG TABLET PO ×2 (09:03→21:00)
[2023-02-13] MEDS: SODIUM CHLORIDE 0.9% FLUSH 10 ML IV ×2 (09:04→21:15)
[2023-02-13] MEDS: MAGNESIUM OXIDE 400 MG TABLET PO (09:08)
[2023-02-13 09:50] VITALS: PULSE 104
--- NOTE | 2023-02-13 10:10 | PT-IP ANOTE ---
Pt refused to work with physical therapy this morning. Nursing reports he has been Ind in room and possibly discharging today. PT will check back in tomorrow if pt is still in hospital.
--- NOTE | 2023-02-13 10:59 | P.PN_ITS ---
Subjective Subjective Date Patient Seen: 02/13/23 Interval history: Pt reports that he continues to have frequent BMs, every 30-45 minutes, but they are slowly becoming more solidified. He denies any blood in them. He has sharp lower abdominal cramping when having a BM, but this quickly resolves when the BM passes. He does note increased LE swelling. He has been independent in his r oom. Exam Vital Signs (past 8 hours): - 02/13/23 09:02 02/13/23 08:02 02/13/23 08:02 Temperature 97.1 F L Pulse Rate 105 H 106 H Blood Pressure 118/77 118/77 Pulse Oximetry 94 02/13/23 09:50 Temperature Pulse Rate 104 H Blood Pressure Pulse Oximetry Fraction of Inspired Oxygen 28 SaO2/FiO2 Ratio 328 Oxygen Delivery Method Room Air Oxygen Flow Rate 0 Narrative Exam Narrative: Gen: NAD, sitting comfortably at edge of bed CV: RRR, no murmurs Resp: clear to auscultation bilaterally Abd: soft, tender to palpation LLQ without rebound/guarding/rigidity, hyperactive bowel sounds Ext: 2+ pitting edema bilaterally Objective Labs 02/08/23 06:23 02/13/23 03:25 Labs: Laboratory Results - last 24 hr 02/13/23 03:25 Sodium 141 Potassium 3.1 L Chloride 108 H Carbon Dioxide 25 BUN 16 Creatinine 1.36 H Estimated GFR 55 L BUN/Creatinine Ratio 11.8 Glucose 138 H Calcium 7.6 L Magnesium 1.6 PFSH Medical History Anemia (2010) Chronic renal failure, stage 3a Colon polyps (2010) Coronary artery disease (~12/2022) Diabetes mellitus (1998) Diabetic neuropathy Diverticular disease (2010) Essential hypertension (08/17/17) GERD (gastroesophageal reflux disease) (2008) GI bleeding (2010) Gout (2008) Hypogonadism in male Iron deficiency anemia Ischemic cardiomyopathy (~12/2022) Kidney stone on right side Obesity (BMI 30.0-34.9) Sigmoid diverticulitis Type 2 diabetes mellitus Uncontrolled type 2 diabetes mellitus Surgical History Anesthesia S/P coronary artery stent placement (01/02/23) Status post laparoscopy (2004) Family History Father Hypertension Alzheimer's disease Cancer Grandfather Heart disease Grandmother No problems noted. Mother Cancer Grandfather Heart disease Grandmother Diabetes mellitus Social History marital status: unmarried,single household members: none Smoking Status: Former smoker alcohol intake: former substance use type: marijuana Assessment & Plan Assessment & Plan narrative: Pt is a 72yo man with CAD, DM type 2, HTN, CKD, hyperlipidemia, and recent diverticulitis who presented with profuse diarrhea and weakness, found to have C diff. 1.? C diff colitis: Gradually improving clinically with stools becoming more formed, although remain quite frequent. Tolerating diet well. - Continue PO Vancomycin, plan to complete 2 week course as an outpatient 2. Fluids/electrolytes/nutrition-patient's?potassium?still?low?this?morning.??I?am? shahriar g?to?increase?his?oral?potassium?not?give?him?any?parental?potassium.??I?will?al so?send?a?prescripti on?to?the?pharmacy?as?above?preparation?for?discharge?hopefully?in?the?next?coup le?of?days.??I?am?also?going?to?continue?him?on?Lasix?but?switch?to?oral 3. History of GI bleed: No?evidence?of?bleeding 4.? Status post [place]/PCI with DB stent: Stable - Continue home medications including antiplatelet therapy 5. Diabetes: BS in acceptable range - Continue home medications 6.??Dyspnea?with?hypoxia: No oxygen requirement, active in room without difficulty. Remains quite swollen. - Continue PO Lasix FEN: Low fiber Code: DNR DVT ppx: Pt ambulating regularly in room Dispo: Anticipate pt should be stable for d/c tomorrow. Quality VTE Deep Vein Thrombosis/Pulmonary Embolism Present on Admission: No
[2023-02-13 20:13] VITALS: BP 120/76; PULSE 100; O2SAT 99
[2023-02-13 20:31] VITALS: BP 120/76; PULSE 97; RESP 18; TEMP 37; O2SAT 99
[2023-02-13] MEDS: glipiZIDE 5 MG TABLET PO (21:02)
[2023-02-14] MEDS: ENOXAPARIN 40 MG/0.4 ML SYRINGE SUBCUT (07:53)
[2023-02-14] MEDS: SODIUM CHLORIDE 0.9% FLUSH 10 ML IV (07:53)
[2023-02-14] MEDS: VALSARTAN 80 MG TABLET PO (07:54)
[2023-02-14] MEDS: POTASSIUM CHLORIDE 20 MEQ TAB 40 MEQ PO (07:54)
[2023-02-14] MEDS: FIDAXOMICIN 200 MG TABLET PO (07:54)
[2023-02-14 07:55] VITALS: BP 120/73; PULSE 110
[2023-02-14] MEDS: METOPROLOL ER 50 MG TABLET PO (07:55)
[2023-02-14 07:56] VITALS: BP 120/73; PULSE 108; RESP 16; TEMP 36.6; O2SAT 93
[2023-02-14] MEDS: MAGNESIUM OXIDE 400 MG TABLET PO (07:57)
[2023-02-14] MEDS: ASPIRIN EC 81 MG TABLET PO (07:58)
[2023-02-14] MEDS: FUROSEMIDE 40 MG TABLET PO (07:58)
[2023-02-14] MEDS: FERROUS SULFATE 325 MG TABLET PO (07:58)
[2023-02-14] MEDS: FAMOTIDINE 20 MG TABLET PO (07:59)
[2023-02-14] MEDS: AMLODIPINE 5 MG TABLET 10 MG PO (07:59)
[2023-02-14] MEDS: VANCOMYCIN 125 MG CAPSULE 250 MG PO (07:59)
[2023-02-14] MEDS: ATORVASTATIN 20 MG TABLET 80 MG PO (08:00)
--- NOTE | 2023-02-14 11:28 | PT-IP ANOTE ---
Pt refused PT stating no further needs, anticipates d/c home today.
--- NOTE | 2023-02-14 12:02 | P.DS_ITS ---
History of Present Illness History of Present Illness Date Patient Seen: 02/14/23 Chief complaint: abd pain/weakness. Narrative: This is a pleasant 72-year-old gentleman who generally sees Dr. Owen.? He has a history of coronary syndrome STEMI with stent 1 month ago at [facility] ry of GI bleed with hospitalization 2 weeks ago at [facility] with acute diverticulitis.? He also has diabetes hypertension and chronic kidney disease.? He presented to this facility via EMS yesterday complaining of profuse diarrhea and weakness unable to leave the upper floor of his home for the last couple of days and unable to take his medications.? Found to be positive for C diff is having multiple blowouts per day started on antibiotics still feeling generally weak with tender lower left quadrant reports manageable 5/10 pain? not much appetite no nausea Discharge Providers Provider Date of admission: 02/07/23 00:25 Discharge Date: 02/14/23 Primary care physician: Yury Owen MD Consults: 02/07/23 11:18 Consult to Occupational Therapy Evaluate & Treat Comment: Physician Instructions: Evaluate and treat Consult to Physical Therapy Evaluate & Treat Comment: Physician Instructions: Evaluate and Treat Discharge provider: Ana Holbrook MD Summary Hospital Course Discharge Diagnosis: C diff colitis Hypokalemia Status post PR/PCI with DB stent DM Type 2 Dyspnea with hypoxia Hospital Course: The pt presented with profuse diarrhea and weakness. He was found to have C diff. He was continued on Fidaxomicin and started on oral Vancomycin. He was noted to be hypokalemic, with potassium actively repleted. The pt was noted to be more SOB with a small oxygen requirement. CXR showed slightly pulmonary edema, likely due to significant fluid resuscitation. He was given PO Lasix with good response. This will be continued until f/u with his PCP at discharge, as he still has significant LE swelling. The pts diarrhea gradually improved. At the time of discharge his stool was starting to solidify, and frequency was decreasing significantly. He was tolerating his diet well. Exam Vital Signs (past 8 hours): - 02/14/23 07:55 02/14/23 07:00 02/14/23 07:56 Temperature Pulse Rate 110 H Respiratory Rate Blood Pressure 120/73 120/73 Pulse Oximetry Oxygen Delivery Method Room Air 02/14/23 07:56 Temperature 97.8 F Pulse Rate 108 H Respiratory Rate 16 Blood Pressure Pulse Oximetry 93 Oxygen Delivery Method Fraction of Inspired Oxygen 28 SaO2/FiO2 Ratio 328 Oxygen Delivery Method Room Air Oxygen Flow Rate 0 Narrative Exam Narrative: Gen:? NAD, sitting comfortably at edge of bed CV:? RRR, no murmurs Resp:? clear to auscultation bilaterally Abd:? soft, nontender Ext:? 2+ pitting edema bilaterally Objective Labs 02/08/23 06:23 02/13/23 03:25 PFS Medical History Anemia (2010) Chronic renal failure, stage 3a Colon polyps (2010) Coronary artery disease (~12/2022) Diabetes mellitus (1998) Diabetic neuropathy Diverticular disease (2010) Essential hypertension (08/17/17) GERD (gastroesophageal reflux disease) (2008) GI bleeding (2010) Gout (2008) Hypogonadism in male Iron deficiency anemia Ischemic cardiomyopathy (~12/2022) Kidney stone on right side Obesity (BMI 30.0-34.9) Sigmoid diverticulitis Type 2 diabetes mellitus Uncontrolled type 2 diabetes mellitus Surgical History Anesthesia S/P coronary artery stent placement (01/02/23) Status post laparoscopy (2004) Family History Father Hypertension Alzheimer's disease Cancer Grandfather Heart disease Grandmother No problems noted. Mother Cancer Grandfather Heart disease Grandmother Diabetes mellitus Social History marital status: unmarried,single household members: none Smoking Status: Former smoker alcohol intake: former substance use type: marijuana Discharge Plan Discharge Plan Patient Disposition: Home Discharge orders & Medications Prescriptions: New furosemide 40 mg Tablet 40 mg PO DAILY Qty: 14 0RF vancomycin 125 mg Capsule 250 mg PO BID Qty: 14 0RF potassium chloride [Klor-Con M20] 20 mEq Tablet,Er Particles/Crystals 40 meq PO TIDWM Qty: 90 0RF Continued (DME) blood-glucose meter Misc See Rx Instructions .ROUTE .MEDSUPPLY Qty: 1 0RF Rx Instructions: use to test blood sugar daily as directed Chondroitin Sulfate 250 MG capsule 1 mg PO DAILY Qty: 0 Patient Comments: unknown dose glucosamine sulfate [Cidatrine (glucosamine)] 500 MG tablet 750 mg PO QDAY Qty: 0 Rx Instructions: 750 [id number] mg. tab. 1 tab daily (DME) lancets [TRUEplus Lancets] 30 gauge misc See Rx Instructions .Route Qty: 100 8RF Rx Instructions: Use to check BS once daily. (DME) Blood Glucose Test Strip See Rx Instructions .ROUTE .MEDSUPPLY Qty: 100 8RF Rx Instructions: Use to test blood sugar once daily fidaxomicin 200 mg tablet 200 mg PO BID 14 Days Qty: 28 1RF glipizide 5 mg tablet 5 mg PO QPM Qty: 90 3RF Ozempic 0.25 mg or 0.5 mg(2 mg/1.5 mL) pen injector 0.5 mg SUBCUT QWEEK Qty: 6 4RF famotidine 40 mg tablet 40 mg PO DAILY Qty: 90 3RF atorvastatin 80 mg tablet 80 mg PO DAILY Qty: 90 3RF metoprolol succinate 50 mg tablet extended release 24 hr 50 mg PO DAILY Qty: 90 3RF prasugrel 10 mg tablet 10 mg PO DAILY Qty: 90 3RF valsartan 80 mg tablet 80 mg PO DAILY Qty: 90 3RF amlodipine 10 mg tablet 10 mg PO QDAY Qty: 90 3RF aspirin 81 mg Tablet,Delayed Release (Dr/Ec) 81 mg PO DAILY ferrous sulfate 325 mg (65 mg iron) Tablet 325 mg PO DAILY Jardiance 10 mg tablet 10 mg PO DAILY Qty: 90 3RF Discontinued vancomycin 250 mg capsule 500 mg PO QID 14 Days Qty: 112 1RF potassium chloride 10 mEq capsule, extended release 20 meq PO TID Qty: 180 5RF Follow up/Referrals: Yury Owen MD [Primary Care Provider] - 2 Weeks Diet/Activity/Treatments Diet: Diet as Tolerated and Carb-consistent/Diabetic Skin/Wound/Dressing Care Report to your healthcare provider any signs of infection, such as:: chills, fever and increased pain Visit Report/Discharge Packet Instructions: DI for Antibiotic -- associated Colitis -- C difficile Stand Alone Forms: Patient Portal/API, Stroke Signs & Symptoms Discharge Data Primary Care Provider: Yury Owen Discharges patient from system. Discharge Date/Time: 02/14/23 13:25 Quality VTE Deep Vein Thrombosis/Pulmonary Embolism Present on Admission: No
== END 2023-02-14 13:25 | disposition home or self-care (01) | DRG 372 ==
LOC: ED 19:58 → AC 02-07 00:26 → ICU 02-07 01:29
PROVIDERS: Admitting Provider Family Medicine; Emergency Provider Emergency Medicine; Family Provider Family Medicine; PCP Internal Medicine; Referring Provider Emergency Medicine; Visit Provider Internal Medicine
DX: A04.72 Enterocolitis due to Clostridium difficile, not specified as recurrent (principal); K57.32 Diverticulitis of large intestine without perforation or abscess without bleeding; I25.10 Atherosclerotic heart disease of native coronary artery without angina pectoris; I25.2 Old myocardial infarction; E11.9 Type 2 diabetes mellitus without complications; I10 Essential (primary) hypertension; R06.00 Dyspnea, unspecified; R09.02 Hypoxemia; E87.6 Hypokalemia; D64.9 Anemia, unspecified; Z79.85 Long-term (current) use of injectable non-insulin antidiabetic drugs; Z95.5 Presence of coronary angioplasty implant and graft; Z79.84 Long term (current) use of oral hypoglycemic drugs; Z66 Do not resuscitate; Z87.891 Personal history of nicotine dependence
CPT/HCPCS: 36415; 71046; 74177; 80048; 80053; 81015; 82962; 83605; 83690; 83735; 84132; 84145; 84484; 85025; 86850; 86900; 86901; 87040; 87324; 87507; 93005; 94762; 96365; 97116; 97161; 99232; 99238; 99284; 99285; A9270; J1650; J1815; J1940; J2270; J2543; Q9967

== ENCOUNTER 2023-02-23 17:35 | Emergency (ER) | payer MEDICARE, OTHER, SELFPAY ==
[2023-02-07 02:50] VITALS: BMI 27.1
[2023-02-23] VITALS (25 sets, daily range): BP systolic 94–122; BP diastolic 51–76; PULSE 74–104; RESP 19–53; TEMP 36.4; O2SAT 91–97
--- NOTE | 2023-02-23 18:26 | ED.GIBLEED ---
HPI - GI Bleed General Chief complaint: GI Bleed Stated complaint: LOOSING WT, VOMITING,DIARRHEA W/BLOOD Time Seen by Provider: 02/23/23 18:25 Source: patient Mode of arrival: Family Vehicle History of Present Illness HPI Narrative: 72-year-old gentleman with complex medical history including coronary disease congestive heart failure, diabetes hypertension hyperlipidemia with hospital admission February 01 through February 14 with GI bleed and Clostridium difficile complicated by hypokalemia and complex fluid management, treated with difficile as well as oral vancomycin January 14 with presumed lower GI bleeding source not identified Admission at [facility] with STEMI and drug-eluting stent placement discharged on January 03 today Returns today with complaints of Voluminous diarrhea, 25 lb weight loss since December significant fatigue, hypotension He states that his brother who is a assembler liquid center at the [facility] finally convinced him to come back to the emergency room today. Complaining of severe abdominal pain worse in the left lower quadrant, almost continuous watery diarrhea, severe fatigue, he is not noticing chest pain, palpitations or orthopnea. He reports that he is cold from his chin to his belly button and can not warm up. Related Data Home Medications Medication Instructions Recorded Confirmed chondroitin sulfate A 250 mg 1 mg PO DAILY ##0 09/07/17 02/07/23 capsule (Chondroitin Sulfate) glucosamine sulfate 500 mg tablet 750 mg PO QDAY ##0 09/07/17 02/07/23 (Cidatrine (glucosamine)) aspirin 81 mg tablet,delayed 81 mg PO DAILY 01/15/23 02/07/23 release ferrous sulfate 325 mg (65 mg 325 mg PO DAILY 01/15/23 02/07/23 iron) tablet Previous Rx's Medication Instructions Recorded blood-glucose meter #1 ea 05/23/20 glipizide 5 mg tablet 5 mg PO QPM #90 tabs 05/18/22 blood sugar diagnostic (Blood #100 ea 10/27/22 Glucose Test strips) lancets 30 gauge (TRUEplus Lancets) #100 ea 10/27/22 semaglutide 0.25 mg or 0.5 mg (2 0.5 mg (0.4 mL) SUBCUT QWEEK #6 mL 12/28/22 mg/1.5 mL) subcutaneous pen injector (Ozempic) empagliflozin 10 mg tablet 10 mg PO DAILY #90 tabs 01/19/23 (Jardiance) amlodipine 10 mg tablet 10 mg PO QDAY #90 tabs 02/01/23 atorvastatin 80 mg tablet 80 mg PO DAILY #90 tabs 02/01/23 famotidine 40 mg tablet 40 mg PO DAILY #90 tabs 02/01/23 metoprolol succinate 50 mg 50 mg PO DAILY #90 tabs 02/01/23 tablet,extended release 24 hr prasugrel 10 mg tablet 10 mg PO DAILY #90 tabs 02/01/23 valsartan 80 mg tablet 80 mg PO DAILY #90 tabs 02/01/23 furosemide 40 mg tablet 40 mg PO DAILY #14 tabs 02/14/23 potassium chloride 20 mEq 40 meq PO TIDWM #90 tabs 02/14/23 tablet,extended release(part/cryst) (Klor-Con M) vancomycin 125 mg capsule 250 mg PO BID #14 caps 02/22/23 Allergies Allergy/AdvReac Type Severity Reaction Status Date / Time NSAIDS (Non-Steroidal AdvReac Intermediate GI bleed Verified 02/01/23 10:32 Anti-Inflamma Review of Systems Review of Systems Narrative: Pertinent positive and negative findings as per HPI Patient History Medical History Anemia (2010) Chronic renal failure, stage 3a Colon polyps (2010) Coronary artery disease (~12/2022) Diabetes mellitus (1998) Diabetic neuropathy Diverticular disease (2010) Essential hypertension (08/17/17) GERD (gastroesophageal reflux disease) (2008) GI bleeding (2010) Gout (2008) Hypogonadism in male Iron deficiency anemia Ischemic cardiomyopathy (~12/2022) Kidney stone on right side Obesity (BMI 30.0-34.9) Sigmoid diverticulitis Type 2 diabetes mellitus Uncontrolled type 2 diabetes mellitus Surgical History Anesthesia S/P coronary artery stent placement (01/02/23) Status post laparoscopy (2004) Family History Father Hypertension Alzheimer's disease Cancer Grandfather Heart disease Grandmother No problems noted. Mother Cancer Grandfather Heart disease Grandmother Diabetes mellitus Social History marital status: unmarried,single household members: none Smoking Status: Former smoker alcohol intake: former substance use type: marijuana Smoking Status: Former smoker alcohol intake frequency: a few times a month Substance Use Type: does not use Exam Initial Vital Signs Initial Vital Signs: Vital Signs Temperature 97.6 F 02/23/23 17:54 Pulse Rate 99 H 02/23/23 17:54 Respiratory Rate 20 02/23/23 17:54 Blood Pressure 94/55 L 02/23/23 17:54 Pulse Oximetry 97 02/23/23 17:54 Oxygen Delivery Method Room Air 02/23/23 17:54 General: Appears chronically ill and acutely worse, he is globally weak mucous membranes are quite dry, he is very pale HEENT: mucous membranes, normal sclera with reactive pupils, Neck: No JVD, supple Respiratory: Lungs are clear to auscultation, no wheezing no rales no rhonchi. Full and symmetrical air movement Cardiac: Regular rate and rhythm no murmurs no bruits Abdomen: Soft, significantly tender with most tenderness localizing in the left lower quadrant and hyperactive bowel tones, no flank pain Skin: Pale but otherwise Warm and dry, no rashes Neurologic: Globally weak but otherwise Grossly neurologically intact with no obvious asymmetries or abnormalities Extremities: No trauma, well perfused Psych: Cooperative, appropriate insight and affect Procedures Central Line Placement Right IJ: Time of procedure: 03:59 Prep: mask, gown and gloves Central Line Prep: Chlorhexidine scrub Local Anesthetic: lidocaine 1% Amount of anesthesia used (mL): 4 Ultrasound Used for Placement: Yes Central Line Lumen Inserted: triple Post Procedure: sutured in place, good blood return, all ports aspirated, flushed, capped, sterile dressing applied and line stabilization device Post Procedure X-Ray: tip of catheter in good position and no pneumothorax seen Patient Tolerated Procedure: Well Complications: none Course Orders Ordered: ED Orders 02/24/23 03:44 Chest [XR chest 1V] Stat 02/24/23 03:50 Complete Blood Count AUTO DIFF Stat Comprehensive Metabolic Panel Stat Lactate (Lactic Acid) Stat 02/24/23 04:24 Urinalysis and Microscopic Stat Hydromorphone HCl (Hydromorphone 0.5 Mg Inj) 0.5 mg IV Q15MIN PRN PRN Reason: Pain, Metronidazole (Flagyl) 500 mg in 100 mls @ 100 mls/hr IV Q8HR TEE Last Infusion: 02/23/23 23:08 Dose: 0 mls/hr Documented By: Admin: 02/23/23 22:05 Dose: 100 mls/hr Documented By: CLAUDY NOREPINEPHRINE BITARTRATE/D5W (Levophed) 4 mg in 250 mls @ 33.169 mls/hr IV TITRATE TEE; Protocol Last Titration: 02/24/23 03:55 Dose: 0.02 mcg/kg/min, 7.5 mls/hr Documented By: Admin: 02/24/23 02:38 Dose: 0.02 mcg/kg/min, 7.5 mls/hr Documented By: CLAUDY Ondansetron HCl (Ondansetron 4 Mg/2 Ml Inj) 4 mg IV NOW PRN PRN Reason: Nausea And Vomiting Ondansetron HCl (Ondansetron 4 Mg Odt) 4 mg SL NOW PRN PRN Reason: Nausea And Vomiting Vancomycin HCl (Vancomycin 125 Mg Capsule) 500 mg PO Q6H TEE Last Admin: 02/24/23 04:51 Dose: 125 mg Documented By: Admin: 02/23/23 22:43 Dose: 500 mg Documented By: CLAUDY Discontinued Medications Sodium Chloride (Normal Saline 0.9%) 500 mls @ 1,000 mls/hr IV BOLUS ONE Stop: 02/23/23 19:45 Last Infusion: 02/23/23 20:14 Dose: 0 mls/hr Documented By: Admin: 02/23/23 19:39 Dose: 1,000 mls/hr Documented By: CLAUDY Sodium Chloride (Normal Saline 0.9%) 1,000 mls @ 1,000 mls/hr IV BOLUS ONE Stop: 02/24/23 03:01 Last Infusion: 02/24/23 03:56 Dose: 0 mls/hr Documented By: Admin: 02/24/23 02:49 Dose: 1,000 mls/hr Documented By: CLAUDY Pantoprazole Sodium (Pantoprazole 40 Mg Vial) 80 mg IV NOW ONE Stop: 02/23/23 18:04 Last Admin: 02/23/23 19:38 Dose: 80 mg Documented By: CLAUDY Vancomycin HCl (Vancomycin 125 Mg Capsule) 400 mg PO Q6HR TEE Vancomycin HCl (Vancomycin 125 Mg Capsule) 500 mg PO Q6HR TEE Last Admin: 02/23/23 22:47 Dose: Not Given Documented By: CLAUDY Vital Signs Vital signs: Vital Signs - 8 hr 02/23/23 21:15 02/23/23 21:30 02/23/23 21:30 Pulse Rate 80 104 H Respiratory Rate 26 H 25 H Blood Pressure 122/76 Pulse Oximetry 92 91 Oxygen Delivery Method Room Air Room Air Oxygen Flow Rate 02/23/23 21:45 02/23/23 22:00 02/23/23 22:00 Pulse Rate 81 80 Respiratory Rate 24 24 Blood Pressure 105/55 L Pulse Oximetry 96 Oxygen Delivery Method Nasal Cannula Oxygen Flow Rate 2 02/23/23 22:15 02/23/23 22:30 02/23/23 22:30 Pulse Rate 81 81 Respiratory Rate 24 25 H Blood Pressure 109/55 L Pulse Oximetry 96 96 Oxygen Delivery Method Nasal Cannula Nasal Cannula Oxygen Flow Rate 2 2 02/23/23 22:45 02/23/23 23:00 02/23/23 23:02 Pulse Rate 103 H 78 Respiratory Rate 24 28 H Blood Pressure 100/58 L Pulse Oximetry 94 94 Oxygen Delivery Method Nasal Cannula Nasal Cannula Oxygen Flow Rate 2 2 02/23/23 23:02 02/23/23 23:15 02/23/23 23:30 Pulse Rate 79 79 Respiratory Rate 37 H 19 Blood Pressure 108/55 L Pulse Oximetry 94 92 Oxygen Delivery Method Nasal Cannula Oxygen Flow Rate 2 02/23/23 23:30 02/23/23 23:45 02/24/23 00:00 Pulse Rate 80 101 H 81 Respiratory Rate 21 20 22 Blood Pressure Pulse Oximetry 92 92 Oxygen Delivery Method Nasal Cannula Nasal Cannula Oxygen Flow Rate 2 2 02/24/23 00:15 02/24/23 00:30 02/24/23 00:45 Pulse Rate 80 81 102 H Respiratory Rate 19 20 23 Blood Pressure Pulse Oximetry 93 93 93 Oxygen Delivery Method Nasal Cannula Nasal Cannula Oxygen Flow Rate 2.5 2.5 02/24/23 01:00 02/24/23 01:15 02/24/23 01:30 Pulse Rate 87 100 H Respiratory Rate 22 20 Blood Pressure 91/54 L Pulse Oximetry 93 94 Oxygen Delivery Method Nasal Cannula Oxygen Flow Rate 2.5 02/24/23 01:30 02/24/23 01:45 02/24/23 01:53 Pulse Rate 90 95 H 84 Respiratory Rate 22 18 22 Blood Pressure Pulse Oximetry 94 93 95 Oxygen Delivery Method Nasal Cannula Nasal Cannula Nasal Cannula Oxygen Flow Rate 2.5 2.5 2.5 02/24/23 01:53 02/24/23 02:00 02/24/23 02:00 Pulse Rate 82 Respiratory Rate 22 Blood Pressure 93/52 L 95/54 L Pulse Oximetry 95 Oxygen Delivery Method Nasal Cannula Oxygen Flow Rate 2.5 02/24/23 02:15 02/24/23 02:30 02/24/23 02:30 Pulse Rate 98 H 97 H Respiratory Rate 22 25 H Blood Pressure 99/56 L Pulse Oximetry 95 95 Oxygen Delivery Method Nasal Cannula Nasal Cannula Oxygen Flow Rate 2.5 2.5 02/24/23 02:40 02/24/23 02:40 02/24/23 02:42 Pulse Rate 87 Respiratory Rate 24 Blood Pressure 115/66 99/60 Pulse Oximetry 94 Oxygen Delivery Method Nasal Cannula Oxygen Flow Rate 2.5 02/24/23 02:42 02/24/23 02:43 02/24/23 02:43 Pulse Rate 82 81 Respiratory Rate 22 21 Blood Pressure 103/60 Pulse Oximetry 95 94 Oxygen Delivery Method Nasal Cannula Nasal Cannula Oxygen Flow Rate 2.5 2.5 02/24/23 02:45 02/24/23 02:45 02/24/23 02:47 Pulse Rate 80 Respiratory Rate 24 Blood Pressure 111/61 103/62 Pulse Oximetry 94 Oxygen Delivery Method Nasal Cannula Oxygen Flow Rate 2.5 02/24/23 02:47 02/24/23 02:50 02/24/23 02:50 Pulse Rate 80 79 Respiratory Rate 21 Blood Pressure 105/64 Pulse Oximetry 95 95 Oxygen Delivery Method Nasal Cannula Nasal Cannula Oxygen Flow Rate 2.5 2.5 02/24/23 02:52 02/24/23 02:52 02/24/23 02:55 Pulse Rate 79 Respiratory Rate 22 Blood Pressure 104/60 110/62 Pulse Oximetry 96 Oxygen Delivery Method Nasal Cannula Oxygen Flow Rate 2.5 02/24/23 02:55 02/24/23 02:57 02/24/23 02:57 Pulse Rate 78 78 Respiratory Rate 20 19 Blood Pressure 111/62 Pulse Oximetry 95 95 Oxygen Delivery Method Nasal Cannula Nasal Cannula Oxygen Flow Rate 2.5 2.5 02/24/23 03:00 02/24/23 03:00 02/24/23 03:02 Pulse Rate 77 Respiratory Rate 19 Blood Pressure 116/62 109/59 L Pulse Oximetry 96 Oxygen Delivery Method Nasal Cannula Oxygen Flow Rate 2.5 02/24/23 03:02 02/24/23 03:05 02/24/23 03:05 Pulse Rate 78 78 Respiratory Rate 19 19 Blood Pressure 115/63 Pulse Oximetry 96 96 Oxygen Delivery Method Nasal Cannula Nasal Cannula Oxygen Flow Rate 2.5 2.5 02/24/23 03:07 02/24/23 03:07 02/24/23 03:10 Pulse Rate 78 Respiratory Rate 19 Blood Pressure 112/60 108/60 Pulse Oximetry 96 Oxygen Delivery Method Nasal Cannula Oxygen Flow Rate 2.5 02/24/23 03:10 02/24/23 03:12 02/24/23 03:12 Pulse Rate 79 78 Respiratory Rate 19 20 Blood Pressure 112/62 Pulse Oximetry 96 96 Oxygen Delivery Method Nasal Cannula Nasal Cannula Oxygen Flow Rate 2.5 2.5 02/24/23 03:15 02/24/23 03:15 02/24/23 03:17 Pulse Rate 78 Respiratory Rate 19 Blood Pressure 112/60 114/64 Pulse Oximetry 95 Oxygen Delivery Method Oxygen Flow Rate 02/24/23 03:17 02/24/23 03:30 02/24/23 03:45 Pulse Rate 77 77 79 Respiratory Rate 19 25 H 32 H Blood Pressure Pulse Oximetry 96 97 97 Oxygen Delivery Method Nasal Cannula Oxygen Flow Rate 2.5 02/24/23 03:46 02/24/23 03:46 02/24/23 04:00 Pulse Rate 78 Respiratory Rate 32 H Blood Pressure 118/61 128/69 Pulse Oximetry 96 Oxygen Delivery Method Nasal Cannula Oxygen Flow Rate 2.5 02/24/23 04:00 02/24/23 04:05 02/24/23 04:05 Pulse Rate 99 H 85 Respiratory Rate 25 H 22 Blood Pressure 127/73 Pulse Oximetry 95 94 Oxygen Delivery Method Nasal Cannula Nasal Cannula Oxygen Flow Rate 2.5 2.5 02/24/23 04:10 02/24/23 04:10 02/24/23 04:15 Pulse Rate 107 H 101 H Respiratory Rate 25 H 24 Blood Pressure 132/76 Pulse Oximetry 96 97 Oxygen Delivery Method Nasal Cannula Nasal Cannula Oxygen Flow Rate 2.5 2.5 02/24/23 04:20 02/24/23 04:20 02/24/23 04:30 Pulse Rate 102 H Respiratory Rate 22 Blood Pressure 134/78 116/64 Pulse Oximetry 95 Oxygen Delivery Method Nasal Cannula Oxygen Flow Rate 2.5 02/24/23 04:30 02/24/23 04:40 02/24/23 04:40 Pulse Rate 99 H 80 Respiratory Rate 28 H 23 Blood Pressure 110/62 Pulse Oximetry 96 96 Oxygen Delivery Method Nasal Cannula Nasal Cannula Oxygen Flow Rate 2.5 2.5 02/24/23 04:45 02/24/23 04:50 02/24/23 04:50 Pulse Rate 78 96 H Respiratory Rate 20 20 Blood Pressure 111/64 Pulse Oximetry 96 97 Oxygen Delivery Method Nasal Cannula Nasal Cannula Oxygen Flow Rate 2.5 2.5 02/24/23 05:00 02/24/23 05:00 Pulse Rate 101 H Respiratory Rate 30 H Blood Pressure 108/69 Pulse Oximetry 96 Oxygen Delivery Method Nasal Cannula Oxygen Flow Rate 2.5 MDM - GI Bleed Lab Data 02/24/23 03:50 02/24/23 03:50 Labs: Lab Results 02/23/23 02/23/23 02/23/23 Range/Units 19:00 19:00 19:00 WBC 10.6 (4.5-11.0) X10^3/uL RBC 3.49 L (4.5-5.9) X10^6/uL Hgb 9.1 L (13.5-17.5) g/dL Hct 27.5 L (41-53) % MCV 78.7 L (80-100) fL MCH 26.1 (26-34) PG MCHC 33.1 (30-36) % RDW 17.9 H (11.6-14.8) % Plt Count 658 H (150-400) X10^3/uL Neut % (Auto) 83.9 H (50-75) % Lymph % (Auto) 7.5 L (25-40) % [place] % (Auto) 7.9 (3-14) % Eos % (Auto) 0.4 L (2-4) % Baso % (Auto) 0.3 (0-2) % Neut # (Auto) 8900 H (8764-8440) /uL Lymph # (Auto) 800 L (4329-9646) /uL [place] # (Auto) 800 (0-900) /uL Eos # (Auto) 0 (0-450) /uL Baso # (Auto) 0 (0-100) /uL PT 14.1 H (10.1-12.7) SECONDS INR 1.2 (0.9-1.3) APTT 27 (26-36) SECONDS Sodium 138 (137-145) mmol/L Potassium 5.1 (3.4-5.1) mmol/L Chloride 102 (98-107) mmol/L Carbon Dioxide 26 (22-32) mmol/L BUN 40 H (9-20) mg/dL Creatinine 2.38 H (0.66-1.25) mg/dL Estimated GFR 28 L (>60) mL/min BUN/Creatinine Ratio 16.8 (6-22) Glucose 158 H (80-110) mg/dL Lactate (0.7-2.1) mmol/L Calcium 8.6 (8.4-10.2) mg/dL Total Bilirubin 0.4 (0.2-1.3) mg/dL AST 24 (17-59) IU/L ALT 31 (<50) IU/L Alkaline Phosphatase 133 H (38-126) U/L Troponin I (0.01-0.034) ng/mL NT-Pro-B Natriuret Pep (<125) pg/mL Total Protein 7.2 (6.3-8.2) g/dL Albumin 3.2 L (3.5-5.0) g/dL Globulin 4.0 (1.7-4.1) g/dL Albumin/Globulin Ratio 0.8 L (1.0-2.8) Procalcitonin (<0.5) ng/mL Urine Color Urine Appearance Urine pH (4.5-8.0) Ur Specific Kathleen (1.000-1.035) Urine Protein (Negative) Urine Glucose (UA) (Negative) g/dL Urine Ketones (NEGATIVE) Urine Occult Blood (Negative) Urine Nitrate (Negative) Urine Bilirubin (NEGATIVE) Urine Urobilinogen (0.2) E.U./dL Ur Leukocyte Esterase (NEGATIVE) Urine RBC (0-5/HPF) Urine WBC (0-5/HPF) Ur Squamous Epith Cells (0-5/HPF) Urine Bacteria (None) Granular Casts (None) Ur Culture Indicated? C. difficile Tox (PCR) (Negative) Blood Type Antibody Screen 02/23/23 02/23/23 02/23/23 Range/Units 19:00 19:00 19:00 WBC (4.5-11.0) X10^3/uL RBC (4.5-5.9) X10^6/uL Hgb (13.5-17.5) g/dL Hct (41-53) % MCV (80-100) fL MCH (26-34) PG MCHC (30-36) % RDW (11.6-14.8) % Plt Count (150-400) X10^3/uL Neut % (Auto) (50-75) % Lymph % (Auto) (25-40) % [place] % (Auto) (3-14) % Eos % (Auto) (2-4) % Baso % (Auto) (0-2) % Neut # (Auto) (6425-1897) /uL Lymph # (Auto) (8647-3539) /uL [place] # (Auto) (0-900) /uL Eos # (Auto) (0-450) /uL Baso # (Auto) (0-100) /uL PT (10.1-12.7) SECONDS INR (0.9-1.3) APTT (26-36) SECONDS Sodium (137-145) mmol/L Potassium (3.4-5.1) mmol/L Chloride (98-107) mmol/L Carbon Dioxide (22-32) mmol/L BUN (9-20) mg/dL Creatinine (0.66-1.25) mg/dL Estimated GFR (>60) mL/min BUN/Creatinine Ratio (6-22) Glucose (80-110) mg/dL Lactate 1.5 (0.7-2.1) mmol/L Calcium (8.4-10.2) mg/dL Total Bilirubin (0.2-1.3) mg/dL AST (17-59) IU/L ALT (<50) IU/L Alkaline Phosphatase (38-126) U/L Troponin I (0.01-0.034) ng/mL NT-Pro-B Natriuret Pep (<125) pg/mL Total Protein (6.3-8.2) g/dL Albumin (3.5-5.0) g/dL Globulin (1.7-4.1) g/dL Albumin/Globulin Ratio (1.0-2.8) Procalcitonin 0.67 H (<0.5) ng/mL Urine Color Urine Appearance Urine pH (4.5-8.0) Ur Specific Kathleen (1.000-1.035) Urine Protein (Negative) Urine Glucose (UA) (Negative) g/dL Urine Ketones (NEGATIVE) Urine Occult Blood (Negative) Urine Nitrate (Negative) Urine Bilirubin (NEGATIVE) Urine Urobilinogen (0.2) E.U./dL Ur Leukocyte Esterase (NEGATIVE) Urine RBC (0-5/HPF) Urine WBC (0-5/HPF) Ur Squamous Epith Cells (0-5/HPF) Urine Bacteria (None) Granular Casts (None) Ur Culture Indicated? C. difficile Tox (PCR) (Negative) Blood Type O Positive Antibody Screen Negative 02/23/23 02/23/23 02/24/23 Range/Units 19:00 19:30 03:50 WBC 9.8 (4.5-11.0) X10^3/uL RBC 3.03 L (4.5-5.9) X10^6/uL Hgb 7.8 L (13.5-17.5) g/dL Hct 23.8 L (41-53) % MCV 78.6 L (80-100) fL MCH 25.8 L (26-34) PG MCHC 32.8 (30-36) % RDW 18.2 H (11.6-14.8) % Plt Count 562 H (150-400) X10^3/uL Neut % (Auto) 82.4 H (50-75) % Lymph % (Auto) 7.8 L (25-40) % [place] % (Auto) 8.8 (3-14) % Eos % (Auto) 0.7 L (2-4) % Baso % (Auto) 0.3 (0-2) % Neut # (Auto) 8100 H (7925-9544) /uL Lymph # (Auto) 800 L (3548-0079) /uL [place] # (Auto) 900 (0-900) /uL Eos # (Auto) 100 (0-450) /uL Baso # (Auto) 0 (0-100) /uL PT (10.1-12.7) SECONDS INR (0.9-1.3) APTT (26-36) SECONDS Sodium (137-145) mmol/L Potassium (3.4-5.1) mmol/L Chloride (98-107) mmol/L Carbon Dioxide (22-32) mmol/L BUN (9-20) mg/dL Creatinine (0.66-1.25) mg/dL Estimated GFR (>60) mL/min BUN/Creatinine Ratio (6-22) Glucose (80-110) mg/dL Lactate (0.7-2.1) mmol/L Calcium (8.4-10.2) mg/dL Total Bilirubin (0.2-1.3) mg/dL AST (17-59) IU/L ALT (<50) IU/L Alkaline Phosphatase (38-126) U/L Troponin I < 0.012 (0.01-0.034) ng/mL NT-Pro-B Natriuret Pep 1230 H (<125) pg/mL Total Protein (6.3-8.2) g/dL Albumin (3.5-5.0) g/dL Globulin (1.7-4.1) g/dL Albumin/Globulin Ratio (1.0-2.8) Procalcitonin 0.65 H (<0.5) ng/mL Urine Color Urine Appearance Urine pH (4.5-8.0) Ur Specific Kathleen (1.000-1.035) Urine Protein (Negative) Urine Glucose (UA) (Negative) g/dL Urine Ketones (NEGATIVE) Urine Occult Blood (Negative) Urine Nitrate (Negative) Urine Bilirubin (NEGATIVE) Urine Urobilinogen (0.2) E.U./dL Ur Leukocyte Esterase (NEGATIVE) Urine RBC (0-5/HPF) Urine WBC (0-5/HPF) Ur Squamous Epith Cells (0-5/HPF) Urine Bacteria (None) Granular Casts (None) Ur Culture Indicated? C. difficile Tox (PCR) Negative for c. diff (Negative) Blood Type Antibody Screen 02/24/23 02/24/23 02/24/23 Range/Units 03:50 03:50 04:24 WBC (4.5-11.0) X10^3/uL RBC (4.5-5.9) X10^6/uL Hgb (13.5-17.5) g/dL Hct (41-53) % MCV (80-100) fL MCH (26-34) PG MCHC (30-36) % RDW (11.6-14.8) % Plt Count (150-400) X10^3/uL Neut % (Auto) (50-75) % Lymph % (Auto) (25-40) % [place] % (Auto) (3-14) % Eos % (Auto) (2-4) % Baso % (Auto) (0-2) % Neut # (Auto) (3729-7666) /uL Lymph # (Auto) (4752-0391) /uL [place] # (Auto) (0-900) /uL Eos # (Auto) (0-450) /uL Baso # (Auto) (0-100) /uL PT (10.1-12.7) SECONDS INR (0.9-1.3) APTT (26-36) SECONDS Sodium 138 (137-145) mmol/L Potassium 4.3 (3.4-5.1) mmol/L Chloride 109 H (98-107) mmol/L Carbon Dioxide 21 L (22-32) mmol/L BUN 33 H (9-20) mg/dL Creatinine 2.02 H (0.66-1.25) mg/dL Estimated GFR 34 L (>60) mL/min BUN/Creatinine Ratio 16.3 (6-22) Glucose 103 (80-110) mg/dL Lactate 0.6 L (0.7-2.1) mmol/L Calcium 7.3 L (8.4-10.2) mg/dL Total Bilirubin 0.3 (0.2-1.3) mg/dL AST 25 (17-59) IU/L ALT 25 (<50) IU/L Alkaline Phosphatase 103 (38-126) U/L Troponin I (0.01-0.034) ng/mL NT-Pro-B Natriuret Pep (<125) pg/mL Total Protein 5.8 L (6.3-8.2) g/dL Albumin 2.4 L (3.5-5.0) g/dL Globulin 3.4 (1.7-4.1) g/dL Albumin/Globulin Ratio 0.7 L (1.0-2.8) Procalcitonin (<0.5) ng/mL Urine Color Yellow Urine Appearance Clear Urine pH 5.5 (4.5-8.0) Ur Specific Kathleen 1.015 (1.000-1.035) Urine Protein Trace H (Negative) Urine Glucose (UA) Trace H (Negative) g/dL Urine Ketones Negative (NEGATIVE) Urine Occult Blood 2+ H (Negative) Urine Nitrate Negative (Negative) Urine Bilirubin Negative (NEGATIVE) Urine Urobilinogen 0.2 (0.2) E.U./dL Ur Leukocyte Esterase Negative (NEGATIVE) Urine RBC 5-10/hpf H (0-5/HPF) Urine WBC None seen (0-5/HPF) Ur Squamous Epith Cells None seen (0-5/HPF) Urine Bacteria None seen (None) Granular Casts 0-1/lpf (None) Ur Culture Indicated? Cult not indicated C. difficile Tox (PCR) (Negative) Blood Type Antibody Screen Point of Care Testing Stool Occult Blood Positive MDM Narrative Medical decision making narrative: CC: Voluminous diarrhea, 25 lb weight loss since December significant fatigue, hypotension Complicating co-morbidities: Coronary artery disease, multiple hospital admissions, diverticulitis, GI bleed, Clostridium difficile Data collected from: patient, Medical records reviewed: Please see HPI for additional summary. Complicating factors include ischemic cardiomyopathy, hypertension, type 2 diabetes, recent STEMI with drug-eluting stent needing anticoagulants with continued GI bleeding Differential considered: Complicated its of Clostridium difficile, recurrent diverticulitis, intra-abdominal abscess, persistent GI bleeding, acute coronary syndrome, congestive heart failure Exam documented above, pertinent findings include: Globally weak, pale significant weight loss over the last number of months, significant left lower quadrant tenderness with moderate remaining abdominal tenderness. No rebound or guarding at this time. Stool is watery but not Lab Test results independently reviewed as above. Pertinent findings: CBC does not show significant leukocytosis and H&H is stable at 9.1 and 27.5 he does have a significant left shift. Stool is guaiac positive Chemistries show acute kidney injury with creatinine increased from 1.36-2.38 BUN elevated at 40. Potassium is 5.1. BNP is elevated at 1230 Procalcitonin elevated at 0.65 Stool is positive for Clostridium difficile on February 06. Independently reviewed EKG sinus rhythm poor baseline, no peaked T-waves or significant QRS widening Imaging studies independently reviewed: Chest x-ray shows cardiomegaly with mild congestion no significant infiltrates or effusion CT of the abdomen shows significant thickening and inflammatory changes within the colon diffusely most severe in the descending and sigmoid colon extending to the rectum. No visualized abscesses Consultations: 9pm [facility] waiting list, [facility] reviewing Treatments: Brief fluid bolus, blood pressure responded nicely to this. 500 mg of oral vancomycin and parenteral metronidazole is added. Based on current recommendations due to lack of evidence for fidaxomicin with systemic symptoms is not recommended. Re-evaluations: 2am blood pressures are falling now consistently in the low 90s over 50s. Levophed will be started. Will go ahead and give him a 1 L bolus of fluid we will recheck lactic acid along with metabolic panel and labs with central line placement. [facility] has no capacity [place] his suggested looking [facility]. [facility] and with his clinical picture deteriorating he really does need to transfer from our facility 346am Discussion with DR Jeffrey Sands, aboriginal ceremonial celebrant accepts care of patient. Central line placed, lactic acid CBC and chemistries are redrawn. Phone call to patient's sister and [id number] to update her on events Code discussion: Patient states that he would not want to have CPR done and would not want to be intubated but would agree to all interventions up to that point Discussion: 72-year-old gentleman with multiple recent medical issues including STEMI, GI bleeding, Clostridium difficile now with what appears to be Clostridium difficile colitis and possibly developing diverticulitis without evidence of sepsis but with evidence of congestive heart failure and acute kidney injury. As the evening progresses his blood pressure is becoming more and more unstable, he started on Levophed, central line is placed time of transfer he is currently on 2 mcgs of Levophed, has received a total of 1-1/2 L of normal saline over the course of his ER stay, antibiotics have included oral vancomycin and IV metronidazole. He remains cognitively appropriate. Currently on 2 L nasal cannula oxygen with minor bibasilar crackles appreciated on clinical exam. Critical Care Time Critical Care Time Critical Care Time: Yes Total Critical Care Time: 47 Attestation: Critical care time is separate from other billable procedures. There is a high probability of a significant, sudden or life-threatening deterioration that requires my full and direct attention, intervention and personal management. This critical care time includes consultation with family and other consulting doctors, review of records, and interpretation of data from labs, EKGs and imaging as well as managements of heart failure, kidney failure, worsening Clostridium dose facility, persistent diarrhea and then hypotension requiring pressors Discharge Plan Departure Patient Disposition: [facility] Clinical Impression: Acute kidney injury, Clostridium difficile enterocolitis, Guaiac positive stools, Weakness, Hypovolemic shock, CHF (congestive heart failure) Prescriptions: No Action (DME) blood-glucose meter Misc See Rx Instructions .ROUTE .MEDSUPPLY Qty: 1 0RF Rx Instructions: use to test blood sugar daily as directed Chondroitin Sulfate 250 MG capsule 1 mg PO DAILY Qty: 0 Patient Comments: unknown dose glucosamine sulfate [Cidatrine (glucosamine)] 500 MG tablet 750 mg PO QDAY Qty: 0 Rx Instructions: 750 [id number] mg. tab. 1 tab daily (DME) lancets [TRUEplus Lancets] 30 gauge misc See Rx Instructions .Route Qty: 100 8RF Rx Instructions: Use to check BS once daily. (DME) Blood Glucose Test Strip See Rx Instructions .ROUTE .MEDSUPPLY Qty: 100 8RF Rx Instructions: Use to test blood sugar once daily vancomycin 125 mg capsule 250 mg PO BID Qty: 14 0RF glipizide 5 mg tablet 5 mg PO QPM Qty: 90 3RF Ozempic 0.25 mg or 0.5 mg(2 mg/1.5 mL) pen injector 0.5 mg SUBCUT QWEEK Qty: 6 4RF famotidine 40 mg tablet 40 mg PO DAILY Qty: 90 3RF atorvastatin 80 mg tablet 80 mg PO DAILY Qty: 90 3RF metoprolol succinate 50 mg tablet extended release 24 hr 50 mg PO DAILY Qty: 90 3RF prasugrel 10 mg tablet 10 mg PO DAILY Qty: 90 3RF valsartan 80 mg tablet 80 mg PO DAILY Qty: 90 3RF amlodipine 10 mg tablet 10 mg PO QDAY Qty: 90 3RF aspirin 81 mg Tablet,Delayed Release (Dr/Ec) 81 mg PO DAILY ferrous sulfate 325 mg (65 mg iron) Tablet 325 mg PO DAILY Jardiance 10 mg tablet 10 mg PO DAILY Qty: 90 3RF furosemide 40 mg Tablet 40 mg PO DAILY Qty: 14 0RF potassium chloride [Klor-Con M20] 20 mEq Tablet,Er Particles/Crystals 40 meq PO TIDWM Qty: 90 0RF Referrals: Yury Owen MD [Primary Care Provider] -
--- NOTE | 2023-02-23 19:13 | DI.CT.S_ITS ---
PROCEDURE: CT ABDOMEN PELVIS W CON INDICATIONS: abdominal pain TECHNIQUE: After the administration of IV contrast, axial sections were acquired from the lung bases to the pubic symphysis. Coronal and sagittal reformats were performed. For radiation dose reduction, the following was used: automated exposure control, adjustment of mA and/or kV according to patient size. COMPARISON: at the [facility], RG, CT ABDOMEN/PELVIS W/WO CONTRAST, 12/11. , 15:03[facility], CT, CT ABDOMEN PELVIS W CON, 10/18/2020, 16:08. [facility], CT, CT ABDOMEN PELVIS W CON, 02/06/2023, 21:17. FINDINGS: Image quality: Excellent. Lung bases: Unchanged soft tissue density at the diaphrag lower lobe since 2014. matic margin Heart: No significant findings. ABDOMEN: Liver: Unremarkable. Gallbladder: Unremarkable. Biliary ducts: Unremarkable. Pancreas: Unremarkable. Spleen: Unremarkable. Adrenal Glands: Unremarkable. Kidneys and Ureters: Mild renal atrophy.. Stomach and Bowel: Small bowel loops, and colon are nonobstructive.. Stomach demonstrates gastric bypass changes. There is significant thickening and inflammatory change within the colon diffusely most severe in the descending and sigmoid colon extending to the rectum. Colonic diverticula are present. No visualized abscess. Peritoneum: No abnormal intraperitoneal fluid. No free air. Ventral Wall: No hernia. Abdominal Nodes: No retroperitoneal or mesenteric adenopathy by size criteria. Vessels: Aorta and inferior vena cava are normal in size. PELVIS: Pelvic Organs: Unremarkable. Bladder: Unremarkable. Pelvic Nodes: No enlarged lymph nodes. Miscellaneous: Bilateral fat containing inguinal hernias. Bones: Unremarkable. IMPRESSION: Prominent colonic thickening with diverticula and inflammatory change most suggestive of colitis secondary to diverticulitis. Recommend interval follow-up to document resolution and exclude presence of underlying mass. Dictated by: Carla Jennings M.D. on 02/23/2023 at 20:05 Approved by: Carla Jennings M.D. on 02/23/2023 at 20:09
[2023-02-23 19:23] LABS: Add Manual Diff / Slide Review NO; Basophils Absolute Auto 0 /uL (0-100); Basophils Percent Auto 0.3 % (0-2); Eosinophils Absolute Auto 0 /uL (0-450); Eosinophils Percent Auto 0.4 % (2-4); Hematocrit 27.5 % (41-53); Hemoglobin 9.1 g/dL (13.5-17.5); Lymphocytes Absolute Auto 800 /uL (1100-4500); Lymphocytes Percent Auto 7.5 % (25-40); Mean Corpuscular HGB Conc 33.1 % (30-36); Mean Corpuscular Hemoglobin 26.1 PG (26-34); Mean Corpuscular Volume 78.7 fL (80-100); Monocytes Absolute Auto 800 /uL (0-900); Monocytes Percent Auto 7.9 % (3-14); Neutrophils Absolute Auto 8900 /uL (1500-7000); Neutrophils Percent Auto 83.9 % (50-75); Platelet Count 658 X10^3/uL (150-400); Red Blood Cell Count 3.49 X10^6/uL (4.5-5.9); Red Cell Distribution Width 17.9 % (11.6-14.8); White Blood Cell Count 10.6 X10^3/uL (4.5-11.0)
[2023-02-23 19:25] LABS: INR 1.2 (0.9-1.3); Prothrombin Time 14.1 SECONDS (10.1-12.7)
[2023-02-23 19:27] LABS: PTT Partial Thromboplastin Tim 27 SECONDS (26-36)
[2023-02-23 19:30] LABS: Lactate (Lactic Acid) 1.5 mmol/L (0.7-2.1)
[2023-02-23 19:33] LABS: Alanine Aminotransferase 31 IU/L (<50); Albumin 3.2 g/dL (3.5-5.0); Albumin Globulin Ratio 0.8 (1.0-2.8); Alkaline Phosphatase 133 U/L (38-126); Aspartate Aminotransferase 24 IU/L (17-59); BUN Creatinine Ratio 16.8 (6-22); Bilirubin Total 0.4 mg/dL (0.2-1.3); Blood Urea Nitrogen 40 mg/dL (9-20); Calcium 8.6 mg/dL (8.4-10.2); Carbon Dioxide 26 mmol/L (22-32); Chloride 102 mmol/L (98-107); Estimated Glomerular Filt Rate 28 mL/min (>60); Glucose 158 mg/dL (80-110); HEMOLYSIS < 15 (0-50); Potassium 5.1 mmol/L (3.4-5.1); Sodium 138 mmol/L (137-145); Total Protein 7.2 g/dL (6.3-8.2)
[2023-02-23] MEDS: PANTOPRAZOLE 40 MG VIAL 80 MG IV (19:38)
[2023-02-23] MEDS: SODIUM CHLORIDE 0.9% 500 ML 1000 ML IV (19:39)
[2023-02-23 19:44] LABS: NT-proBNP (BNP-Adult 18+) 1230 pg/mL (<125); Troponin I < 0.012 ng/mL (0.01-0.034)
[2023-02-23 19:48] LABS: Procalcitonin 0.67 ng/mL (<0.5)
[2023-02-23 19:49] LABS: Procalcitonin 0.65 ng/mL (<0.5)
[2023-02-23 21:12] LABS: Clostridium Difficile Tox PCR Negative for C. diff (Negative)
[2023-02-23] MEDS: metroNIDAZOLE 500 MG/100 ML PIGGYBACK 100 MG IV (22:05)
[2023-02-23] MEDS: VANCOMYCIN 125 MG CAPSULE 500 MG PO (22:43)
[2023-02-24] VITALS (42 sets, daily range): BP systolic 91–134; BP diastolic 52–78; PULSE 77–107; RESP 18–32; O2SAT 93–97
--- NOTE | 2023-02-24 00:13 | PC.NURSE ---
Addendum entered by Ailyn Blanco CNA 02/24/23 01:06: 0107 Spoke to Gabino at [facility]. Asked if patient is willing to go to [place] for care. Asked patient. He said no, [place], [place] [facility]. I explained that I am trying to transfer him out to another hospital and some of them maybe in [place], so is he refusing to go to [place]? He said no to [place]. Spoke to Gabino and told him what patient said. Will work on finding a bed closer to his home. Addendum entered by Ailyn Blanco CNA 02/24/23 01:03: Roxy Cuevas: Spoke to Elliot at 0100. 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 Called the following places with the following responses: [facility]: Spoke to Connor at 2021. Followed up at 2329 patient on waitlist [facility]: Barbie at 2050. Patient on Waitlist [place]: 2350 spoke with Bandar,took information. Will call us back.
[2023-02-24] MEDS: NOREPINEPHRINE BITARTRATE/D5W 4 MG/250 ML PLAST..BAG 7.5 MG IV (02:38)
[2023-02-24] MEDS: SODIUM CHLORIDE 0.9% 1,000 ML 1000 ML IV (02:49)
--- NOTE | 2023-02-24 03:44 | DI.RAD.S_ITS ---
PROCEDURE: XR CHEST 1V INDICATIONS: central line TECHNIQUE: One view of the chest was acquired. COMPARISON: [facility], CR, XR CHEST 2V, 02/09/2023, 8:29. [facility], CR, XR CHEST 1V, 01/01/2023, 9:33. FINDINGS: Surgical changes and devices: Right central venous catheter tip projects over the lower right atrium. Lungs and pleura: Low lung volumes. Peripheral left midlung opacity not seen on prior. Bilateral perihilar opacities are essentially unchanged and may be related to compress pulmonary vessels secondary to low lung volumes.. No pleural effusions or pneumothorax. Mediastinum: Mediastinal contours appear normal. Heart size is normal. Atherosclerotic vascular calcifications. Bones and chest wall: No suspicious bony lesions. Degenerative changes of the spine. Overlying soft tissues appear unremarkable. IMPRESSION: 1. Central venous catheter with tip projecting over the lower right atrium. 2. Peripheral left midlung opacity is nonspecific, cannot exclude infection. Clinical correlation and follow-up is recommended. Findings are concordant with preliminary interpretation provided by [facility]. Dictated by: Liban Chiu M.D. on 02/24/2023 at 8:21 Approved by: Liban Chiu M.D. on 02/24/2023 at 8:25
[2023-02-24 04:17] LABS: Add Manual Diff / Slide Review NO; Basophils Absolute Auto 0 /uL (0-100); Basophils Percent Auto 0.3 % (0-2); Eosinophils Absolute Auto 100 /uL (0-450); Eosinophils Percent Auto 0.7 % (2-4); Hematocrit 23.8 % (41-53); Hemoglobin 7.8 g/dL (13.5-17.5); Lymphocytes Absolute Auto 800 /uL (1100-4500); Lymphocytes Percent Auto 7.8 % (25-40); Mean Corpuscular HGB Conc 32.8 % (30-36); Mean Corpuscular Hemoglobin 25.8 PG (26-34); Mean Corpuscular Volume 78.6 fL (80-100); Monocytes Absolute Auto 900 /uL (0-900); Monocytes Percent Auto 8.8 % (3-14); Neutrophils Absolute Auto 8100 /uL (1500-7000); Neutrophils Percent Auto 82.4 % (50-75); Platelet Count 562 X10^3/uL (150-400); Red Blood Cell Count 3.03 X10^6/uL (4.5-5.9); Red Cell Distribution Width 18.2 % (11.6-14.8); White Blood Cell Count 9.8 X10^3/uL (4.5-11.0)
[2023-02-24 04:19] LABS: Lactate (Lactic Acid) 0.6 mmol/L (0.7-2.1)
[2023-02-24 04:21] LABS: Alanine Aminotransferase 25 IU/L (<50); Albumin 2.4 g/dL (3.5-5.0); Albumin Globulin Ratio 0.7 (1.0-2.8); Alkaline Phosphatase 103 U/L (38-126); Aspartate Aminotransferase 25 IU/L (17-59); BUN Creatinine Ratio 16.3 (6-22); Bilirubin Total 0.3 mg/dL (0.2-1.3); Blood Urea Nitrogen 33 mg/dL (9-20); Calcium 7.3 mg/dL (8.4-10.2); Carbon Dioxide 21 mmol/L (22-32); Chloride 109 mmol/L (98-107); Estimated Glomerular Filt Rate 34 mL/min (>60); Globulin 3.4 g/dL (1.7-4.1); Glucose 103 mg/dL (80-110); HEMOLYSIS < 15 (0-50); Potassium 4.3 mmol/L (3.4-5.1); Sodium 138 mmol/L (137-145); Total Protein 5.8 g/dL (6.3-8.2)
[2023-02-24 04:31] LABS: Appearance Urine UA CLEAR; Bilirubin Urine UA NEGATIVE (NEGATIVE); Color Urine UA YELLOW; Glucose Urine UA TRACE g/dL (Negative); Ketones Urine UA NEGATIVE (NEGATIVE); Leukocyte Esterase Urine UA NEGATIVE (NEGATIVE); Nitrite Urine UA NEGATIVE (Negative); Occult Blood Urine UA 2+ (Negative); Protein Urine UA TRACE (Negative); Specific Gravity Urine UA 1.015 (1.000-1.035); Urobilinogen Urine UA 0.2 E.U./dL (0.2); pH Urine UA 5.5 (4.5-8.0)
--- NOTE | 2023-02-24 04:46 | PC.NURSE ---
pt asked this nurse to leave voicemail for Betty Jose G that he is being transferred to [facility] in [place].
[2023-02-24] MEDS: VANCOMYCIN 125 MG CAPSULE 500 MG PO (04:51)
[2023-02-24 04:53] LABS: Bacteria Urine None Seen; RBC Urine 5-10/HPF (0-5/HPF); Squamous Epithelial Cell Urine None Seen (0-5/HPF); WBC Urine None Seen (0-5/HPF)
[2023-02-24 04:54] LABS: Culture Indicated Urine Cult Not Indicated; Granular Casts Urine 0-1/LPF
--- NOTE | 2023-02-24 05:11 | PC.NURSE ---
pt leaving to [facility] in [facility]. Levophed running at 2mcg/min, 7.5mls/hr.
== END 2023-02-24 05:12 | disposition short-term general hospital (02) ==
PROVIDERS: Emergency Medicine; Emergency Provider Emergency Medicine; Family Provider Family Medicine; PCP Internal Medicine
DX: N17.9 Acute kidney failure, unspecified (principal); A04.72 Enterocolitis due to Clostridium difficile, not specified as recurrent; R19.5 Other fecal abnormalities; R57.1 Hypovolemic shock; I50.9 Heart failure, unspecified; Z79.899 Other long term (current) drug therapy; R53.1 Weakness
CPT/HCPCS: 36415; 36569; 51798; 71045; 74177; 80053; 81001; 82272; 83605; 83880; 84145; 84484; 85025; 85610; 85730; 86850; 86900; 86901; 87040; 87493; 93005; 93010; 96361; 96365; 96366; 96367; 96375; 99285; 99291; C9113; Q9967